=== PATIENT | male | born 1955 | race Caucasian/White ===

== ENCOUNTER 2016-04-07 09:24 | Inpatient (IN) | payer OTHER, MEDICARE ==
[~2016-04-07] VITALS: Ht 170.2 cm; Wt 86.4 kg
[~2016-04-07 09:24] MED LIST: AFLURIA 2045 MCG/0.1 IM; AMIODARONE HCL200 M1 PO; AMLODIPINE BESY10 M1 PO; AMLODIPINE BESY10 MG PO; APIX2.5 PO; ATORVASTATIN CA20 MG PO; CELLCEPT 250MG250 MG PO; CLONIDINE HCL0.2 MG PO; COUMADIN2.5 M1 PO; COZAAR 50MG TAB50 MG PO; DIGOXIN0.125 MG PO; DIGOXIN125 MCG PO; DILAUDID2 MG PO; ECOTRIN325 MG PO; FISH OIL1000 MG PO; FUROSEMIDE40 M1 PO; FUROSEMIDE40 MG PO; HUMALOG PEN100 U/ML SC; HYDROMORPHONE HC4 M1 PO; LANTUS SOL100 UNIT/1 SC; LANTUS100 UNIT/1 SC; LASIX20 M1 PO; LASIX20 MG PO; LASIX40 MG PO; LOPRESSOR100 M1 PO; LOPRESSOR50 MG PO; MASON NATURAL2000 IU PO; METOPROLOL TAR100 MG PO; MINITRAN1 EAC1 PAT; MULTAQ 400MG400 MG PO; MULTIPLE VITAMI1 TAB PO; NITROGLYCER0.6 MG/H1 TD; NORVASC 5MG TAB5 MG PO; NORVASC5 M1 PO; OXYCODONE5 M1 PO; PERCOCET 325 MG1 TA2 PO; PLAVIX75 M1 PO; PROGRAF 0.5MG0.5 MG PO; PROGRAF 1MG1 MG PO; PROGRAF0.5 MG PO; PROGRAF1 M1 PO; PROGRAF1 MG PO; REGLAN10 MG PO; ROBITUSSIN W/CO10 ML PO; SIMVASTATIN40 MG PO; VITAMIN D250000 UNIT PO; VITAMIN D50000 IU PO; WARFARIN SODIUM1 M1 PO; ZITHROMAX Z-PA250 M1 PO; ZOFRAN ODT4 MG PO; ZOFRAN4 M1 PO
--- NOTE | 2016-04-07 09:35 | NUR ---
PT STATES THAT HE FELL IN FEBR[facility]ARY AND WAS SEEN HERE, HAD MULTIPLE RIB FX ON RIGHT SIDE AND TRANSFERRED TO [facility] WHERE HE STAYED FOR SEVEN WEEKS, PT WAS DISCHARGED 2 WEEKS AGO, IS ON BLOOD THINNERS AND WOKE THIS AM WITH A LARGE HEMATOMA TO HIS L SIDE ABD, PT IS O2 DEPENDENT ON 1L VIA NC, O2 SAT 94 % , PT ALSO HAS LOOSE COUGH , STATES THAT HE HAS HAD IT FOR ABOUT 1 WEEK.
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
--- NOTE | 2016-04-07 10:00 | NUR ---
PORT CXR IN PROGRESS.
--- NOTE | 2016-04-07 10:05 | NUR ---
PT TO CAT SCAN
--- NOTE | 2016-04-07 10:14 | NUR ---
BACK FROM CAT SCAN
--- NOTE | 2016-04-07 10:35 | NUR ---
blood drawn and sent to lab 1blue,1sst,1pink, 1 grissom 1 lav
[2016-04-07 10:39] LABS: ABSOLUTE BASOPHIL COUNT 0 /CUMM (0.0-0.2); ABSOLUTE EOSINOPHIL COUNT 0.4 /CUMM (0.0-0.7); ABSOLUTE GRANULOCYTE CT 9.4 /CUMM (1.4-6.5); ABSOLUTE LYMPH COUNT 1.2 /CUMM (1.2-3.4); ABSOLUTE MONOCYTE COUNT 0.9 /CUMM (0.10-0.60); BASOPHIL % 0.4 % (0.0-2.0); EOSINOPHIL % 3.2 % (0-5); GRANULOCYTE % 78.9 % (42.2-75.2); HEMATOCRIT 36.8 % (42-52); MEAN CORPUSCULAR HGB 26.7 PG (27.0-31.0); MEAN CORPUSCULAR HGB CONC 32.5 G/DL (33.0-37.0); MEAN CORPUSCULAR VOLUME 82.1 FL (80.0-94.0); MEAN PLATELET VOLUME 9.6 FL (7.4-10.4); PLATELET COUNT 183 /CUMM (130-400); RED BLOOD CELL CT 4.48 /CUMM (4.70-6.10); WHITE BLOOD CELL COUNT 11.9 /CUMM (4.8-10.8)
--- NOTE | 2016-04-07 10:50 | NUR ---
IV EST. MEDICATED PER EMAR
--- NOTE | 2016-04-07 10:50 | RADIOLOGY REPORT ---
EXAMINATION: XR PORTABLE CHEST CLINICAL INFORMATION: Fall with severe hematoma left abdomen. COMPARISON: CT scan today. TECHNIQUE: Portable single view of the chest was obtained. FINDINGS: It is difficult to assess heart size, secondary to the portable nature of the film and poor inspiratory effort, but heart size probably normal in size. There is no evidence of CHF, although there is opacity seen at both lung bases. CT scan performed the same day shows no infiltrates, but just some lower lobe scarring or atelectasis. Surgical wires are noted overlying the lower neck, presumably related to the cervical spine. No pneumothorax is seen. IMPRESSION: No acute intrathoracic disease.
--- NOTE | 2016-04-07 11:05 | NUR ---
CRITICAL TEST RESULTS [id number] MORALES MAHONEY TESTS AND RESULTS: PT > 103, INR > 10, PTT > 120 Results received and read back by: DIRK LANGSTON Results received date and time: 04/07/16 1115 The following provider was notified of the results, and read the results back: MARKO YADAV Notified date and time: 04/07/16 at 1105
[2016-04-07 11:07] LABS: PT > 103.0 SEC (9.4-12.5); PTT > 120 SEC (25-37)
--- NOTE | 2016-04-07 11:16 | NUR ---
CRITICAL TEST RESULTS [id number] MORALES MAHONEY TESTS AND RESULTS: BUN 130, CR 5.5 Results received and read back by: DIRK LANGSTON Results received date and time: 04/07/16 1116 The following provider was notified of the results, and read the results back: MARKO YADAV Notified date and time: 04/07/16 at 1116
[2016-04-07] MEDS ORDERED: WARFARIN SODIUM5 M1 PO (11:19)
[2016-04-07] MEDS ORDERED: BUMETANIDE2 M1 PO (11:21)
--- NOTE | 2016-04-07 11:43 | NUR ---
AWAITING POC/DISPO Informed waiting has been performed.
--- NOTE | 2016-04-07 11:45 | CT SCAN REPORT ---
EXAMINATION: CT ABDOMEN AND PELVIS WITHOUT CONTRAST CLINICAL INFORMATION: Left abdomen hematoma COMPARISON: 12/12/2014 TECHNIQUE: Multidetector volumetric imaging was performed from the superior aspect of the liver through the pubic symphysis. Sagittal and coronal reformatted images were obtained on the technologist's workstation. DLP: 582.40 mGy-cm. FINDINGS: LUNG BASES: There are curvilinear bibasilar opacities favoring atelectasis. Coronary artery calcifications are present. LIVER, GALLBLADDER, AND BILIARY TREE: The liver is normal in size, shape, and attenuation. No focal hepatic lesion or biliary ductal dilatation is present. Patient is status post cholecystectomy. PANCREAS: Unremarkable. SPLEEN: Unremarkable. ADRENAL GLANDS: Stable nodularity of the right adrenal gland. The left adrenal gland is unremarkable. KIDNEYS AND URETERS: The [place] kidneys are atrophic without hydronephrosis. There is a redemonstrated right renal cyst, now measuring up to 2.0 cm in diameter. A left pelvic transplant kidney is present, without hydronephrosis. BLADDER: Minimally distended and suboptimally assessed. GASTROINTESTINAL TRACT: An ileocolonic anastomosis is noted in the right abdomen. No evidence of bowel obstruction. No abnormal bowel wall thickening is seen. There is trace sigmoid diverticulosis. No free fluid or free air is seen. ABDOMINAL WALL: There is hyperdense soft tissue attenuation in the subcutaneous tissues of the left anterior abdominal wall overlying the rectus abdominis muscle, suspicious for an abdominal wall hematoma as per clinical history. This measures up to approximately 2 cm in thickness. There is also mild asymmetric thickening of the underlying left rectus muscle as compared to the right, suspicious for a small component of intramuscular hematoma. A small amount of subcutaneous hematoma is seen extending across the midline into the anterior right abdomen overlying the right rectus muscle. LYMPH NODES: Normal. VASCULAR: There is atherosclerotic calcification along the aorta and iliac arteries. PELVIC VISCERA: Unremarkable. OSSEOUS STRUCTURES: Chronic appearing lower lateral right rib fractures are noted. Scattered degenerative changes are present in the spine, most severe at L3-L4. IMPRESSION: Subcutaneous swelling in the left anterior abdomen overlying the rectus abdominis muscle, consistent with abdominal wall hematoma as per clinical history. Mild underlying intramuscular hematoma in the left rectus muscle is also suspected. Mild subcutaneous hematoma is seen extending across the midline into the anterior right abdomen. No evidence of intra-abdominal hematoma.
--- NOTE | 2016-04-07 12:29 | NUR ---
MARKO YADAV IN TO REVIEW POC.
--- NOTE | 2016-04-07 12:51 | NUR ---
MEDICATED WITH VITAMIN K PER EMAR.
--- NOTE | 2016-04-07 12:59 | NUR ---
HOUSESTAFF AT BEDSIDE FOR EVAL.
--- NOTE | 2016-04-07 13:30 | NUR ---
1ST UNIT [facility]FP HANGING.
--- NOTE | 2016-04-07 14:40 | NUR ---
HOUSESTAFF AT BEDSIDE, ALERT ORIENTED.NO CO PAIN NO ACTIVE BLEEDING NOTED MACRINA UNIT OF [facility] WELL.
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
--- NOTE | 2016-04-07 15:23 | NUR ---
1ST UNIT FFP COMPLETED. AWAITS 2ND UNIT AND BED ASSIGNMENT. ALERT ORIENTED. VSS.
--- NOTE | 2016-04-07 15:36 | Admission Certification ---
Admission Certification Certification Statement - As attending physician, I certify that at the time of - admission, based on clinical presentation, severity of - symptoms, need for further diagnostic testing and - therapeutic interventions, and risk of adverse outcomes - without in-hospital treatment, in my clinical assessment, - this patient requires an acute hospital stay for a minimum - of two nights or longer. I have also considered psychsocial - factors such as support system, advanced age, financial - issues, cognitive issues, and failed out-patient treatments, - past re-admission history, safety of patient, and lack of - compliance as applicable. Specific rationale supporting this admission is: Severe coagulopathy and hematoma with acute on chronic CKD.
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
--- NOTE | 2016-04-07 18:35 | NUR ---
pt admitted to room 107
--- NOTE | 2016-04-07 19:41 | NUR ---
REPORT GIVEN TO [facility] ICU. TRANSPORT BOOKED.
[2016-04-07 20:00] VITALS: BP 150/60
[2016-04-08] VITALS: BP 116/54
--- NOTE | 2016-04-08 01:55 | NUR ---
0000 PATIENT RECEIVED DROWSY BUT AROUSABLE, DENIES NAUSEA, C/P, SKIN PINK, WARM AND DRY, HOME CPAP WITH 2L O2 BLEED IN USE- CONTINUOUS O2 SAT 96%, BREATHE SOUNDS CLEAR BUT DIMINISHED AT BASES, ABDOMEN SOFT, TENDER ON LUQ WHERE DEEPLY ECCYMOSIS IS, +BS, INSURANCE ADJUSTOR SINUS WITHOUT ECTOPY, HEART RATE 60'S TO 70'S/MIN, 6TH UNIT OF FFP INFUSING ORDERED, PATIENT RE-SETTLED FOR SLEEP, CALL LIGHT WITHIN REACH 0030 FFP TRANSFUSION COMPLETE- NO UNTOWARD S/S NOTED, BREATHE SOUNDS CLEAR BILATERALLY 0115 PATIENT AWAKE, C/O SUDDEN "SHARP" CP RADIATING ACROSS TOP OF CHEST, 11/23, O2 SAT DECREASED TO 86%- NC WITH 3L/MIN O2 PLACED- DR HOPKINS NOTIFIED, EKG DONE, LABS WITH TROPONIN DRAWN AND TO LAB (VS HR 80, BP 152/58, RR 24) [address] HOPKINS, C/P LASTED 5-10 MINUTES, NOW RESOLVED, RETURNED TO CPAP AND RE-SETTLED FOR SLEEP, O2 SAT AT 95%
[2016-04-08 01:58] LABS: ABSOLUTE BASOPHIL COUNT 0 /CUMM (0.0-0.2); ABSOLUTE EOSINOPHIL COUNT 0.3 /CUMM (0.0-0.7); ABSOLUTE GRANULOCYTE CT 6.3 /CUMM (1.4-6.5); ABSOLUTE LYMPH COUNT 1.4 /CUMM (1.2-3.4); ABSOLUTE MONOCYTE COUNT 0.8 /CUMM (0.10-0.60); BASOPHIL % 0.3 % (0.0-2.0); EOSINOPHIL % 3.7 % (0-5); GRANULOCYTE % 71.5 % (42.2-75.2); MEAN CORPUSCULAR HGB 27.2 PG (27.0-31.0); MEAN CORPUSCULAR HGB CONC 33.5 G/DL (33.0-37.0); MEAN CORPUSCULAR VOLUME 81.4 FL (80.0-94.0); MEAN PLATELET VOLUME 9.9 FL (7.4-10.4); PLATELET COUNT 146 /CUMM (130-400); RBC DISTRIBUTION WIDTH 15.1 % (11.5-14.5); RED BLOOD CELL CT 3.45 /CUMM (4.70-6.10); WHITE BLOOD CELL COUNT 8.8 /CUMM (4.8-10.8)
[2016-04-08 02:11] LABS: PT 22.1 SEC (9.4-12.5)
[2016-04-08 02:15] LABS: HEMATOCRIT 28.1 % (42-52)
[2016-04-08 04:00] VITALS: BP 136/60
--- NOTE | 2016-04-08 04:56 | NUR ---
0430 PATIENT SLEEPING SOUNDLY- O2 SAT DECREASED TO 88 TO 89%- O2 BLEED INCREASED TO 3L/MIN WITHOUT CHANGE- RT IN AND HAS INCREMENTALLY INCREASED O2 TO 5L/MIN TO OBTAIN O2 SAT OF 92%- BREATHE SOUNDS DIMINISHED ON LEFT COMPARED TO RIGHT SIDE AT THIS TIME- DR HUNT IN TO EXAMINE PATIENT- MD TO ORDER CXR
--- NOTE | 2016-04-08 06:01 | RADIOLOGY REPORT ---
EXAMINATION: XR PORTABLE CHEST CLINICAL INFORMATION: Evaluate for interval change with shortness of breath. COMPARISON: Chest x-ray 04/07/2016. TECHNIQUE: Portable view of the chest was obtained. FINDINGS: There is central vascular congestion with increased interstitial opacities suggesting mild interstitial pulmonary edema. No pleural effusions and no pneumothoraces. Cardiac silhouette is enlarged and unchanged. Surgical wires project over the neck in unchanged position. Osseous structures are stable. IMPRESSION: Central vascular congestion with findings suggesting new mild interstitial pulmonary edema.
--- NOTE | 2016-04-08 06:11 | NUR ---
O2 SAT INCREASED TO 98%- TITRATED BACK TO 2L/MIN WITH O2 SAT MAINTAINED AT 95%, CLOSE OBSERVATION MAINTAINED, AWAITING AM ROUNDS
[2016-04-08 08:00] VITALS: BP 128/60
--- NOTE | 2016-04-08 11:05 | PN- Nephrology ---
Assessment/Plan Assessment: 1. CKD stage V; status post LRD transplant 2000 2. Abdominal wall hematoma in setting of supratherapeutic INR now normalized following 6 units of FFP infusion 3. Chest pain of uncertain etiology 4. Pulmonary vascular congestion Suggestion: 1. Check troponins and manage pain as you are doing 2. No IV fluids 3. Restart Bumex 2 mg by mouth twice a day 4. Suspect the patient will need to start dialysis in the very near future, perhaps on this admission Subjective Subjective: Patient has been complaining of chest pain this morning with some mild shortness of breath. The pain is somewhat atypical in that it appears to be related to food or position. Renal function has improved slightly with a creatinine of 5.2 coming down from 5.5 after he received 6 units of fresh frozen plasma. INR has normalized. Objective Vital Signs and I&Os Vital Signs Date Time Temp Pulse Resp B/P Pulse O2 O2 Flow FiO2 Ox Delivery Rate 04/08 0554 71 94 04/08 0400 92 CPAP 2.0L 04/08 0400 98.4 74 20 136/60 92 CPAP 2.0L 04/08 0258 71 95 04/08 0033 70 95 04/08 0000 96 CPAP 2.0L 04/08 0000 97.9 70 18 116/54 96 CPAP 2.0L 04/07 2141 74 93 04/07 1999 93 Nasal 1.0L Cannula 04/07 1999 98.2 75 20 150/60 92 Nasal 1.0L Cannula 04/07 1905 98.1 71 19 162/69 92 Nasal 2.0L Cannula 04/07 1707 96.3 67 18 141/66 92 Nasal 2.0L Cannula 04/07 1345 98.6 63 20 129/59 92 Nasal 1.0L Cannula 04/07 1330 98.4 64 18 133/71 95 Nasal 1.0L Cannula 04/07 1200 92 Nasal 1.0L Cannula 04/07 1143 98.0 68 20 129/51 92 Nasal 1.0L Cannula Intake & Output 04/08 0400 04/07 1600 04/07 0400 04/06 0400 Intake Total 445 470 Output Total 300 420 Balance 145 50 Intake, Blood 295 Product Intake, IV 30 350 Intake, Oral 120 120 Number 0 Bowel Movements Output, Urine 300 420 Patient 190 lb 193 lb 186 lb Weight Physical Exam: General: Well-developed obese white male complaining on and off of chest pain Skin: No rash or jaundice HEENT: Prosthetic left eye, no icterus Neck: Without masses or thyromegaly, no supraclavicular or cervical adenopathy Chest: Rales and decreased breath sounds at right base, left lung clear Heart: Regular rate and rhythm without S3 or rub Abdomen: Soft with large ecchymosis in the left upper quadrant region overlying subcutaneous induration/mass which is still very tender Extremities: Without cyanosis or edema Neuro: No focal findings, no asterixis or myoclonus Current Medications: Current Medications Sig/Harjinder Start time Last Medication Dose Route Stop Time Status Admin Acetaminophen 650 MG Q6P PRN 04/07 2044 AC PO Acetaminophen 1,000 MG Q6P PRN 04/07 2044 AC IV Amiodarone HCl 100 MG DAILY 04/08 1000 AC 04/08 PO 0940 Amlodipine Besylate 10 MG DAILY 04/08 1000 AC 04/08 PO 0940 Atorvastatin Calcium 20 MG 1700 04/07 1700 AC PO Fish Oil 1,050 MG DAILY 04/08 1000 AC 04/08 PO 0940 Hydromorphone HCl 4 MG Q8P PRN 04/07 1615 AC PO Hydromorphone HCl 1 MG ONCE ONE 04/07 1345 DC 04/07 IV 04/07 1346 1330 Hydromorphone HCl 0 .STK-MED ONE 04/07 1335 DC .ROUTE Insulin Detemir 16 UNITS QPM 04/07 2200 AC 04/07 SC 2222 Metoprolol Succinate 100 MG DAILY 04/08 1000 AC 04/08 PO 0940 Morphine Sulfate 4 MG ONCE ONE 04/08 1045 DC 04/08 IV 04/08 1046 1052 Multivitamins 1 TAB DAILY 04/08 1000 AC 04/08 PO 0940 Mycophenolate Mofetil 750 MG 0700,1900 04/07 1900 AC 04/08 PO 0621 Nitroglycerin 0.5 GM ONCE ONE 04/08 1030 CAN TOP 04/08 1031 Nitroglycerin 0.6 MG DAILY 04/08 1000 AC 04/08 TOP 0940 Non-Formulary 0 SEE ADMIN CRITERIA 04/07 1630 CAN Medication ANY Non-Formulary 0 SEE ADMIN CRITERIA 04/07 1630 CAN Medication ANY Ondansetron HCl 4 MG Q6P PRN 04/07 2014 AC 04/07 IV 2037 Phytonadione 10 MG ONCE ONE 04/07 1245 DC 04/07 SC 04/07 1246 1251 Phytonadione 0 .STK-MED ONE 04/07 1241 DC .ROUTE Promethazine HCl 25 MG ONCE ONE 04/07 2300 DC 04/07 IV 04/07 2300 230 Sodium Chloride 1,000 ML Q8H 04/07 1500 DC IV Tacrolimus 1.5 MG DAILY 04/08 1000 AC 04/08 PO 0940 Tacrolimus 1 MG AT BEDTIME 04/07 2200 AC 04/07 PO 2221 Trimethobenzamide HCl 200 MG ONCE ONE 04/07 2129 DC IM 04/07 2130 Results Pertinent Lab Results: Laboratory Tests 04/08 04/08 04/08 1000 0500 0120 Chemistry Sodium (137 - 145 mmol/L) Pending Cancelled 144 Potassium (3.5 - 5.1 mmol/L) Pending Cancelled 4.1 Chloride (98 - 107 mmol/L) Pending Cancelled 107 Carbon Dioxide (22 - 30 mmol/L) Pending Cancelled 19 L Anion Gap (5 - 16) Pending Cancelled 17 H BUN (9 - 20 mg/dL) Pending Cancelled 128 *H Creatinine (0.7 - 1.2 mg/dL) Pending Cancelled 5.2 *H Estimated GFR (>60 ml/min) 11 L BUN/Creatinine Ratio Pending Glucose (65 - 99 mg/dL) Cancelled 143 H Calcium (8.4 - 10.2 mg/dL) Cancelled 10.4 H Phosphorus (2.5 - 4.5 mg/dL) Cancelled 7.2 H Magnesium (1.6 - 2.3 mg/dL) Cancelled 2.3 Total Bilirubin (0.2 - 1.3 mg/dL) Cancelled 0.6 AST (17 - 59 U/L) Cancelled 22 ALT (21 - 72 U/L) Cancelled 41 Troponin I (<0.11 ng/ml) Pending 0.04 Albumin (3.5 - 5.0 g/dL) Cancelled 4.4 Coagulation PT (9.4 - 12.5 SEC) 22.1 H INR (0.90 - 1.17) 2.12 H Hematology CBC w Diff Pending Cancelled NO MAN DIFF REQ WBC (4.8 - 10.8 /CUMM) Pending Cancelled 8.8 RBC (4.70 - 6.10 /CUMM) Pending Cancelled 3.45 L Hgb (14.0 - 18.0 G/DL) Pending Cancelled 9.4 L Hct (42 - 52 %) Pending Cancelled 28.1 L MCV (80.0 - 94.0 FL) Pending Cancelled 81.4 MCH (27.0 - 31.0 PG) Pending Cancelled 27.2 RDW (11.5 - 14.5 %) Pending Cancelled 15.1 H Plt Count (130 - 400 /CUMM) Pending Cancelled 146 MPV (7.4 - 10.4 FL) Pending Cancelled 9.9 Gran % (42.2 - 75.2 %) 71.5 Lymphocytes % (20.5 - 51.1 %) 15.6 L Monocytes % (1.7 - 9.3 %) 8.9 Eosinophils % (0 - 5 %) 3.7 Basophils % (0.0 - 2.0 %) 0.3 Absolute Granulocytes (1.4 - 6.5 /CUMM) 6.3 Absolute Lymphocytes (1.2 - 3.4 /CUMM) 1.4 Absolute Monocytes (0.10 - 0.60 /CUMM) 0.8 H Absolute Eosinophils (0.0 - 0.7 /CUMM) 0.3 Absolute Basophils (0.0 - 0.2 /CUMM) 0 PUBS MCHC (33.0 - 37.0 G/DL) Pending Cancelled 33.5 04/07 04/07 2300 2127 Chemistry Troponin I Cancelled Urines Urinalysis LIGHT H Urine Color (YEL,AMB,STR) YEL Urine Clarity (CLEAR) CLEAR Urine pH (5.0 - 8.0) 5.5 Ur Specific [place] (1.001 - 1.035) 1.020 Urine Protein (NEG,<30 MG/DL) TRACE H Urine Ketones (NEG) NEG Urine Nitrite (NEG) NEG Urine Bilirubin (NEG) NEG Urine Urobilinogen (0.1 - 1.0 EU/dl) 0.2 Ur Leukocyte Esterase (NEG) NEG Ur Microscopic SEDIMENT EXAMINED Urine RBC (0 - 5 /HPF) 1-3 Ur Epithelial Cells (NONE,FEW) RARE Urine Crystals RARE CA OX Urine Hemoglobin (NEG) TRACE-LYSED H Urine Glucose (N MG/DL) NEG 04/07 1030 Chemistry Sodium (137 - 145 mmol/L) Cancelled 144 Potassium (3.5 - 5.1 mmol/L) Cancelled 4.6 Chloride (98 - 107 mmol/L) Cancelled 107 Carbon Dioxide (22 - 30 mmol/L) Cancelled 18 L Anion Gap (5 - 16) Cancelled 19 H BUN (9 - 20 mg/dL) Cancelled 130 *H Creatinine (0.7 - 1.2 mg/dL) Cancelled 5.5 *H Estimated GFR (>60 ml/min) 11 L BUN/Creatinine Ratio (7 - 25 %) Cancelled 23.6 Glucose (65 - 99 mg/dL) 135 H Calcium (8.4 - 10.2 mg/dL) 10.4 H Total Bilirubin (0.2 - 1.3 mg/dL) 0.5 AST (17 - 59 U/L) 35 ALT (21 - 72 U/L) 41 Alkaline Phosphatase (< 127 U/L) 157 H Creatine Kinase (55 - 170 U/L) 25 L Troponin I (<0.11 ng/ml) 0.03 Total Protein (6.3 - 8.2 g/dL) 8.2 Albumin (3.5 - 5.0 g/dL) 4.1 Globulin (1.9 - 4.2 gm/dL) 4.1 Albumin/Globulin Ratio (1.1 - 2.2 %) 1.0 L Amylase (30 - 110 U/L) 37 Lipase (23 - 300 U/L) 33 Coagulation PT (9.4 - 12.5 SEC) Cancelled > 103.0 *H INR (0.90 - 1.17) Cancelled > 10.0 *H APTT (25 - 37 SEC) > 120 *H Hematology CBC w Diff Cancelled NO MAN DIFF REQ WBC (4.8 - 10.8 /CUMM) Cancelled 11.9 H RBC (4.70 - 6.10 /CUMM) Cancelled 4.48 L Hgb (14.0 - 18.0 G/DL) Cancelled 11.9 L Hct (42 - 52 %) Cancelled 36.8 L MCV (80.0 - 94.0 FL) Cancelled 82.1 MCH (27.0 - 31.0 PG) Cancelled 26.7 L RDW (11.5 - 14.5 %) Cancelled 15.0 H Plt Count (130 - 400 /CUMM) Cancelled 183 MPV (7.4 - 10.4 FL) Cancelled 9.6 Gran % (42.2 - 75.2 %) 78.9 H Lymphocytes % (20.5 - 51.1 %) 10.0 L Monocytes % (1.7 - 9.3 %) 7.5 Eosinophils % (0 - 5 %) 3.2 Basophils % (0.0 - 2.0 %) 0.4 Absolute Granulocytes (1.4 - 6.5 /CUMM) 9.4 H Absolute Lymphocytes (1.2 - 3.4 /CUMM) 1.2 Absolute Monocytes (0.10 - 0.60 /CUMM) 0.9 H Absolute Eosinophils (0.0 - 0.7 /CUMM) 0.4 Absolute Basophils (0.0 - 0.2 /CUMM) 0 PUBS MCHC (33.0 - 37.0 G/DL) Cancelled 32.5 L Imaging/Other Studies: PATIENT: MORALES MAHONEY PRESENT AGE: 61 PATIENT ACCOUNT NO: [id number] : 55 LOCATION: [facility] ORDERING PHYSICIAN: AN HOPKINS MD SERVICE DATE: 04/08/16 EXAM TYPE: RAD - XRY-PORTABLE CHEST XRAY EXAMINATION: XR PORTABLE CHEST CLINICAL INFORMATION: Evaluate for interval change with shortness of breath. COMPARISON: Chest x-ray 04/07/2016. TECHNIQUE: Portable view of the chest was obtained. FINDINGS: There is central vascular congestion with increased interstitial opacities suggesting mild interstitial pulmonary edema. No pleural effusions and no pneumothoraces. Cardiac silhouette is enlarged and unchanged. Surgical wires project over the neck in unchanged position. Osseous structures are stable. IMPRESSION: Central vascular congestion with findings suggesting new mild interstitial pulmonary edema. DICTATED BY: NICOLA MENDOZA MD DATE/TIME DICTATED:04/08/16554 HAM SMOKER:ASHLEY DATE/TIME TRANSCRIBED:04/08/16554 CONFIDENTIAL, DO NOT COPY WITHOUT APPROPRIATE AUTHORIZATION. <Electronically signed in Other Vendor System> SIGNED BY: NICOLA MENDOZA MD 04/08/16 0601
[2016-04-08 11:08] LABS: ABSOLUTE BASOPHIL COUNT 0 /CUMM (0.0-0.2); ABSOLUTE EOSINOPHIL COUNT 0.3 /CUMM (0.0-0.7); ABSOLUTE GRANULOCYTE CT 5.1 /CUMM (1.4-6.5); ABSOLUTE LYMPH COUNT 0.9 /CUMM (1.2-3.4); ABSOLUTE MONOCYTE COUNT 0.7 /CUMM (0.10-0.60); BASOPHIL % 0.3 % (0.0-2.0); EOSINOPHIL % 4.8 % (0-5); GRANULOCYTE % 71.8 % (42.2-75.2); HEMATOCRIT 26.6 % (42-52); MEAN CORPUSCULAR HGB 26.7 PG (27.0-31.0); MEAN CORPUSCULAR HGB CONC 32.7 G/DL (33.0-37.0); MEAN CORPUSCULAR VOLUME 81.6 FL (80.0-94.0); MEAN PLATELET VOLUME 9.3 FL (7.4-10.4); PLATELET COUNT 141 /CUMM (130-400); RBC DISTRIBUTION WIDTH 15.1 % (11.5-14.5); RED BLOOD CELL CT 3.26 /CUMM (4.70-6.10); WHITE BLOOD CELL COUNT 7.1 /CUMM (4.8-10.8)
--- NOTE | 2016-04-08 12:15 | PN- Housestaff ---
See Addendum Subjective Follow-up For: 1-Supratherapeutic INR with spontaneous abdominal hematoma 2-ULISES on top of CKD Subjective: She was seen and examined, he is laying in bed looks relaxed and comfortable. Patient complained of chest pain last night. He denies any current chest pain, shortness breath, palpitations or diaphoresis. Patient reported that he gets this kind of pain intermittently after food Review of Systems Constitutional: Denies: chills, diaphoresis, fever. EENTM: Denies: visual changes, hearing changes. Cardiovascular: Denies: chest pain, orthopena, palpitations, syncope. Respiratory: Reports: cough, short of breath. Gastrointestinal: Denies: abdominal pain, diarrhea, distention, nausea, vomiting. Genitourinary: Denies: dysuria. Objective Last 24 Hrs of Vital Signs/I&O Vital Signs Date Time Temp Pulse Resp B/P Pulse O2 O2 Flow FiO2 Ox Delivery Rate 04/08 08 Nasal 4.0L Cannula 04/08 08 98.5 72 19 128/60 99 CPAP 2.0L 04/08 0554 71 94 04/08 0400 92 CPAP 2.0L 04/08 0400 98.4 74 20 136/60 92 CPAP 2.0L 04/08 0258 71 95 04/08 0033 70 95 04/08 0000 96 CPAP 2.0L 04/08 0000 97.9 70 18 116/54 96 CPAP 2.0L 04/07 2141 74 93 04/07 1999 93 Nasal 1.0L Cannula 04/07 1999 98.2 75 20 150/60 92 Nasal 1.0L Cannula 04/07 1905 98.1 71 19 162/69 92 Nasal 2.0L Cannula 04/07 1707 96.3 67 18 141/66 92 Nasal 2.0L Cannula 04/07 1345 98.6 63 20 129/59 92 Nasal 1.0L Cannula 04/07 1330 98.4 64 18 133/71 95 Nasal 1.0L Cannula Intake & Output 04/08 1600 04/08 0800 04/08 0000 Intake Total 445 470 Output Total 300 420 Balance 145 50 Intake, Blood 295 Product Intake, IV 30 350 Intake, Oral 120 120 Number 0 Bowel Movements Output, Urine 300 420 Patient 86.381 kg 87.713 kg Weight Physical Exam General Appearance: Alert, Oriented X3, Cooperative, No Acute Distress Skin: hematoma looks less tens and less swollen than yesterday. HEENT: Atraumatic, PERRLA, EOMI, Mucous Membr. moist/pink, blind on left eye Neck: No JVD Cardiovascular: Regular Rate, Normal S1, Normal S2 Lungs: dcrease air-entry over lungs B/L with some rhonchi Abdomen: Soft, No Tenderness, hematoma over the left side of abdomine Neurological: Normal Speech Current Medications: Current Medications Sig/Harjinder Start time Last Medication Dose Route Stop Time Status Admin Acetaminophen 650 MG Q6P PRN 04/07 2044 AC PO Acetaminophen 1,000 MG Q6P PRN 04/07 204 AC IV Amiodarone HCl 100 MG DAILY 04/08 1000 AC 04/08 PO 0940 Amlodipine Besylate 10 MG DAILY 04/08 1000 AC 04/08 PO 0940 Atorvastatin Calcium 20 MG 1700 04/07 1700 AC PO Bumetanide 2 MG BID 04/08 1132 AC PO Docusate Sodium 100 MG BID PRN 04/08 1200 AC PO Fish Oil 1,050 MG DAILY 04/08 1000 AC 04/08 PO 0940 Hydromorphone HCl 4 MG Q8P PRN 04/07 1615 AC 04/08 PO 1100 Hydromorphone HCl 1 MG ONCE ONE 04/07 1345 DC 04/07 IV 04/07 1346 1330 Hydromorphone HCl 0 .STK-MED ONE 04/07 1335 DC .ROUTE Insulin Detemir 16 UNITS QPM 04/07 2200 AC 04/07 SC 2222 Metoprolol Succinate 100 MG DAILY 04/08 1000 AC 04/08 PO 0940 Morphine Sulfate 4 MG ONCE ONE 04/08 1045 DC 04/08 IV 04/08 1046 1052 Multivitamins 1 TAB DAILY 04/08 1000 AC 04/08 PO 0940 Mycophenolate Mofetil 750 MG 0700,1900 04/07 1900 AC 04/08 PO 0621 Nitroglycerin 0.5 GM ONCE ONE 04/08 1030 CAN TOP 04/08 1031 Nitroglycerin 0.6 MG DAILY 04/08 1000 AC 04/08 TOP 0940 Non-Formulary 0 SEE ADMIN CRITERIA 04/07 1630 CAN Medication ANY Non-Formulary 0 SEE ADMIN CRITERIA 04/07 1630 CAN Medication ANY Omeprazole 40 MG DAILY AC 04/08 1148 AC PO Ondansetron HCl 4 MG Q6P PRN 04/07 2014 AC 04/07 IV 2038 Phytonadione 10 MG ONCE ONE 04/07 1245 DC 04/07 SC 04/07 1246 1251 Phytonadione 0 .STK-MED ONE 04/07 1241 DC .ROUTE Promethazine HCl 25 MG ONCE ONE 04/07 2300 DC 04/07 IV 04/07 230 2301 Sodium Chloride 1,000 ML Q8H 04/07 1500 DC IV Tacrolimus 1.5 MG DAILY 04/08 1000 AC 04/08 PO 0940 Tacrolimus 1 MG AT BEDTIME 04/07 2200 AC 04/07 PO 2221 Trimethobenzamide HCl 200 MG ONCE ONE 04/07 2129 DC IM 04/07 2130 Last 24 Hrs of Lab/Gael Results Last 24 Hrs of Labs/Mics: Laboratory Tests 04/08/16 1000: Sodium Pending, Potassium Pending, Chloride Pending, Carbon Dioxide Pending, Anion Gap Pending, BUN Pending, Creatinine Pending, BUN/Creatinine Ratio Pending , Troponin I Pending, CBC w Diff NO MAN DIFF REQ, RBC 3.26 L, MCV 81.6, MCH 26.7 L, RDW 15.1 H, MPV 9.3, Gran % 71.8, Lymphocytes % 13.3 L, Monocytes % 9.8 H, Eosinophils % 4.8, Basophils % 0.3, Absolute Granulocytes 5.1, Absolute Lymphocytes 0.9 L, Absolute Monocytes 0.7 H, Absolute Eosinophils 0.3, Absolute Basophils 0, PUBS MCHC 32.7 L 04/08/16 0500: Sodium Cancelled, Potassium Cancelled, Chloride Cancelled, Carbon Dioxide Cancelled, Anion Gap Cancelled, BUN Cancelled, Creatinine Cancelled, Glucose Cancelled, Calcium Cancelled, Phosphorus Cancelled, Magnesium Cancelled, Total Bilirubin Cancelled, AST Cancelled, ALT Cancelled, Albumin Cancelled, CBC w Diff Cancelled, WBC Cancelled, RBC Cancelled, Hgb Cancelled, Hct Cancelled, MCV Cancelled, MCH Cancelled, RDW Cancelled, Plt Count Cancelled, MPV Cancelled, PUBS MCHC Cancelled 04/08/16 0120: Anion Gap 17 H, Estimated GFR 11 L, Glucose 143 H, Calcium 10.4 H, Phosphorus 7.2 H, Magnesium 2.3, Total Bilirubin 0.6, AST 22, ALT 41, Troponin I 0.04, Albumin 4.4, PT 22.1 H, INR 2.12 H, CBC w Diff NO MAN DIFF REQ, RBC 3.45 L, MCV 81.4, MCH 27.2, RDW 15.1 H, MPV 9.9, Gran % 71.5, Lymphocytes % 15.6 L, Monocytes % 8.9, Eosinophils % 3.7, Basophils % 0.3, Absolute Granulocytes 6.3, Absolute Lymphocytes 1.4, Absolute Monocytes 0.8 H, Absolute Eosinophils 0.3, Absolute Basophils 0, PUBS MCHC 33.5 04/07/16 2300: Urinalysis LIGHT H, Urine Color YEL, Urine Clarity CLEAR, Urine pH 5.5, Ur Specific [place] 1.020, Urine Protein TRACE H, Urine Ketones NEG, Urine Nitrite NEG, Urine Bilirubin NEG, Urine Urobilinogen 0.2, Ur Leukocyte Esterase NEG, Ur Microscopic SEDIMENT EXAMINED, Urine RBC 1-3, Ur Epithelial Cells RARE, Urine Crystals RARE [place], Urine Hemoglobin TRACE-LYSED H, Urine Glucose NEG 04/07/167: Troponin I Cancelled 04/07/16 2000: Sodium Cancelled, Potassium Cancelled, Chloride Cancelled, Carbon Dioxide Cancelled, Anion Gap Cancelled, BUN Cancelled, Creatinine Cancelled, BUN/ Creatinine Ratio Cancelled, PT Cancelled, INR Cancelled, CBC w Diff Cancelled, WBC Cancelled, RBC Cancelled, Hgb Cancelled, Hct Cancelled, MCV Cancelled, MCH Cancelled, RDW Cancelled, Plt Count Cancelled, MPV Cancelled, PUBS MCHC Cancelled Microbiology 04/07 2019 UPPER RESP: Surveillance Culture - RECD 04/07 2019 GI: Surveillance Culture - RECD Assessment/Plan Assessment: # spontaneous (no trauma) left side abdominal Wall hematoma. Pt was found to have supratherapeutic INR on admission (>10). His H&H is stable is stable for now. INR was reversed by vitamin K and 6 units of FFP. His INR after FFP is 2.12. * We will repeat his labs later today * if needed may by blood transfuse. * We will follow vascular surgery recommendation regarding the hematoma #Acute on chronic kidney failure pt had a history of LRDT he is on tacrolimus and mycophenylate, this may increase his risk of infection. specially that now he has a large abdominal hematoma. Patient was seen by nephrology today * We will Restart Bumex 2 mg by mouth twice a day, as per nephrology * monitor ins/outs * continue his immunosuppressants medications * We, will considerbroad spectrum Abx as his hematoma is a nidus for infection * We will repeat RFT daily * Patient most likely will be planned for dialysis as per nephrology * We will follow any nephrology recommendation #Paroxysmal A.fib Pt now is NSR. He presented with supratherapeutic INR(>10). * we will continue his amiodarone * we will continue his toprol XL 100mg daily for now. * Dr. Dunlap has already been consulted we will follow his recommendation #Chest pain He shouldn't complaining of chest pain yesterday, he also complained of chest pain today. Even though the patient reported recurrent similar pain after food. * We will order EKG * We will order troponin * X-ray was done this morning and show mild vascular congestion * Cardiology is on board #HTN/DM * continue home meds but we will use a novolog sliding scale and give levemir instead of glargine nightly * FSG TIDAC/HS FULL CODE ALPS for dvt ppx CC3 diet Problem List: 1. Hematoma 2. Supratherapeutic INR Pain Ratin Pain Location: chest Pain Goal: Remain pain free Pain Plan: Nitroglycerin patch Tomorrow's Labs & Rationales: cbc and BEP
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
[2016-04-08 16:00] VITALS: BP 120/64
--- NOTE | 2016-04-08 17:58 | ECHOCARDIOGRAM REPORT ---
MORALES MAHONEY Age: 61 : 1955 Gender: M Exam Date: 04/08/2016 16:25 Exam Location: [facility] Ht (in): 67 Wt (lb): 190 BSA: 2.04 BP: 128 / 60 Ordering Physician: RADHA MITCHELL MD Referring Physician: Alan Dunlap MD, PhD Technologist: Yaquelin Gunn [facility] Room Number: 109 Indications: HEART FAILURE Rhythm: Sinus Technical Quality: Technically difficult study FINDINGS Left Ventricle Normal size left ventricle. Borderline concentric left ventricular hypertrophy. No obvious regional wall motion abnormalities. Normal left ventricular ejection fraction visually estimated at 60%. "pseudonormal" filling pattern of the left ventricle for age (stage 2 diastolic dysfunction). Right Ventricle Normal right ventricular size and function. Right Atrium Normal right atrial size. Left Atrium Left atrial size at the upper limits of normal. Mitral Valve Moderate mitral annular calcification. Mitral valve mildly thickened. Mild mitral regurgitation. Aortic Valve Trileaflet aortic valve. Mild aortic sclerosis. No aortic valve stenosis. Trace aortic regurgitation. Tricuspid Valve Structurally normal tricuspid valve. Trace tricuspid regurgitation. No evidence of pulmonary hypertension. Right ventricular systolic pressure estimated to be within the normal range at 12 mmHg. Pulmonic Valve Pulmonic valve not well visualized, grossly normal. No pulmonic regurgitation. Pericardium No pericardial effusion. Great Vessels Normal size aortic root. Mildly dilated ascending aorta. Dilated inferior vena cava. CONCLUSIONS Normal size left ventricle. Borderline concentric left ventricular hypertrophy. Normal left ventricular ejection fraction visually estimated at 60%. "pseudonormal" filling pattern of the left ventricle for age (stage 2 diastolic dysfunction). Normal right ventricular size and function. Normal right atrial size. Left atrial size at the upper limits of normal. Mild mitral regurgitation. Trace aortic regurgitation. Trace tricuspid regurgitation. No evidence of pulmonary hypertension. Mildly dilated ascending aorta. Dilated inferior vena cava. Jose Lunsford M.D. (Electronically Signed) Final Date: 08 April 2016 17:58 MEASUREMENTS (Male / Female) Normal Values 2D ECHO LV Diastolic Diameter PLAX 4.9 cm 4.2 - 5.9 / 3.9 - 5.3 cm LV Systolic Diameter PLAX 3.3 cm 2.1 - 4.0 cm LV Fractional Shortening PLAX 32.7 % 25 - 46 % LV Ejection Fraction 2D Teich 60.9 % IVS Diastolic Thickness 1.1 cm LVPW Diastolic Thickness 1.1 cm LV Relative Wall Thickness 0.4 RV Internal Dim ED PLAX 3.0 cm 1.9 - 3.8 cm LVOT Diameter 2.3 cm Aortic Root Diameter 3.3 cm LA Systolic Diameter LX 4.0 cm 3.0 - 4.0 / 2.7 - 3.8 cm LA Volume 53.0 cm 18 - 58 / 22 - 52 cm Ascending Aorta Diameter 3.6 cm DOPPLER AV Peak Velocity 144.0 cm/s AV Peak Gradient 8.3 mmHg AV Mean Velocity 102.0 cm/s AV Mean Gradient 5.0 mmHg AV Velocity Time Integral 33.1 cm LVOT Peak Velocity 119.0 cm/s LVOT Peak Gradient 5.7 mmHg LVOT Mean Velocity 85.0 cm/s LVOT Mean Gradient 3.0 mmHg LVOT Velocity Time Integral 26.5 cm LVOT Stroke Volume 110.1 cm AV Area Cont Eq vti 3.3 cm AV Area Cont Eq pk 3.4 cm MV Peak Velocity 120.0 cm/s MV Peak Gradient 5.8 mmHg MV Mean Velocity 71.1 cm/s MV Mean Gradient 2.0 mmHg Mitral E Point Velocity 125.0 cm/s Mitral A Point Velocity 83.9 cm/s Mitral E to A Ratio 1.5 MV PHT Velocity 125.0 cm/s MV Deceleration Smyth 537.0 cm/s MV Pressure Half Time 69.8 ms MV Area PHT 3.2 cm MV Deceleration Time 132.0 ms TR Peak Velocity 135.0 cm/s TR Peak Gradient 7.3 mmHg Right Atrial Pressure 5.0 mmHg Pulmonary Artery Systolic Pressu 12.3 mmHg Right Ventricular Systolic Press 12.3 mmHg PV Peak Velocity 119.0 cm/s PV Peak Gradient 5.7 mmHg PV Mean Velocity 76.9 cm/s PV Mean Gradient 3.0 mmHg PV Velocity Time Integral 23.1 cm LV E' Lateral Velocity 8.8 cm/s Mitral E to LV E' Lateral Ratio 14.3 LV E' Septal Velocity 6.7 cm/s Mitral E to LV E' Septal Ratio 18.7
[2016-04-08 20:00] VITALS: BP 126/58
[2016-04-09] VITALS: BP 120/56
[2016-04-09 04:00] VITALS: BP 116/52
[2016-04-09 06:17] LABS: ABSOLUTE BASOPHIL COUNT 0 /CUMM (0.0-0.2); ABSOLUTE EOSINOPHIL COUNT 0.4 /CUMM (0.0-0.7); ABSOLUTE GRANULOCYTE CT 3.5 /CUMM (1.4-6.5); ABSOLUTE LYMPH COUNT 1.1 /CUMM (1.2-3.4); ABSOLUTE MONOCYTE COUNT 0.7 /CUMM (0.10-0.60); BASOPHIL % 0.6 % (0.0-2.0); EOSINOPHIL % 6.3 % (0-5); GRANULOCYTE % 61.4 % (42.2-75.2); HEMATOCRIT 24.7 % (42-52); MEAN CORPUSCULAR HGB CONC 32.9 G/DL (33.0-37.0); MEAN CORPUSCULAR VOLUME 82.1 FL (80.0-94.0); MEAN PLATELET VOLUME 9.8 FL (7.4-10.4); PLATELET COUNT 141 /CUMM (130-400); RBC DISTRIBUTION WIDTH 15.3 % (11.5-14.5); RED BLOOD CELL CT 3.01 /CUMM (4.70-6.10); WHITE BLOOD CELL COUNT 5.7 /CUMM (4.8-10.8)
[2016-04-09 06:18] LABS: PT 22.6 SEC (9.4-12.5)
--- NOTE | 2016-04-09 07:47 | PN- Housestaff ---
Subjective Follow-up For: 1-Supratherapeutic INR with spontaneous abdominal hematoma 2-ULISES on top of CKD Subjective: patient was seen and examined. His laying on bed looks relaxed and comfortable. No acute overnight events were reported by the patient or his nurse. He shouldn't denies any current complaints. He shouldn't denies chest pain, palpitation, shortness breath, or abdominal pain. Review of Systems Constitutional: Denies: chills, fever, weakness. Cardiovascular: Denies: chest pain, palpitations, peripheral edema, syncope. Respiratory: Reports: cough. Denies: orthopnea, short of breath, sputum production. Gastrointestinal: Denies: abdominal pain, constipation, diarrhea, nausea, vomiting. Genitourinary: Denies: dysuria. Objective Last 24 Hrs of Vital Signs/I&O Vital Signs Date Time Temp Pulse Resp B/P Pulse O2 O2 Flow FiO2 Ox Delivery Rate 04/09 1402 96.9 63 20 100/50 93 Nasal 5.0L Cannula 04/09 0800 95 Nasal 5.0L Cannula 04/09 0800 97.4 60 20 111/50 95 Nasal 5.0L Cannula 04/09 0526 56 91 04/09 0400 96 CPAP 7.0L 04/09 0400 98.1 58 18 116/52 96 CPAP 7.0L 04/09 0332 59 95 04/09 0019 65 90 04/09 0000 92 CPAP 7.0L 04/09 0000 97.6 66 18 120/56 92 CPAP 7.0L 04/08 2355 67 86 04/08 2227 68 95 04/08 2103 71 116/49 04/08 1999 93 Nasal 4.0L Cannula 04/08 1999 97.1 80 28 126/58 93 Nasal 4.0L Cannula 04/08 1600 93 Nasal 4.0L Cannula 04/08 1600 98.4 80 20 120/64 93 Nasal 4.0L Cannula Intake & Output 04/09 1600 04/09 0800 04/09 0000 Intake Total 800 120 200 Output Total 250 0 200 Balance 550 120 0 Intake, Oral 800 120 200 Number 0 Bowel Movements Output, Urine 250 0 200 Physical Exam General Appearance: Alert, Oriented X3, Cooperative, No Acute Distress Skin: left upper quadrant abdominal hematoma HEENT: Atraumatic, PERRLA, EOMI, blind on left eye Neck: No JVD Cardiovascular: Regular Rate, Normal S1, Normal S2, No Murmurs Lungs: reason air entry over both lungs, Abdomen: Soft, tenderness over left side abdominal hematoma Neurological: Normal Speech Current Medications: Current Medications Sig/Harjinder Start time Last Medication Dose Route Stop Time Status Admin Acetaminophen 650 MG Q6P PRN 04/07 2044 AC PO Acetaminophen 1,000 MG Q6P PRN 04/07 2044 AC IV Amiodarone HCl 100 MG DAILY 04/08 1000 AC 04/09 PO 0947 Amlodipine Besylate 10 MG DAILY 04/08 1000 AC 04/09 PO 0948 Atorvastatin Calcium 20 MG 1700 04/07 1700 AC 04/08 PO 1708 Bumetanide 2 MG BID 04/08 1132 AC 04/09 PO 0946 Dextrose 25 GM ONCE ONE 04/09 0745 DC 04/09 IV 04/09 0746 0744 Docusate Sodium 100 MG BID PRN 04/08 1200 AC 04/08 PO 1244 Fish Oil 1,050 MG DAILY 04/08 1000 AC 04/09 PO 0945 Hydromorphone HCl 4 MG Q8P PRN 04/07 1615 AC 04/09 PO 0945 Insulin Aspart 0 TIDAC 04/09 1700 AC SC Insulin Detemir 16 UNITS QPM 04/07 2200 AC 04/08 SC 2102 Metoprolol Succinate 100 MG DAILY 04/08 1000 DC 04/08 PO 0940 Metoprolol Tartrate 100 MG BID 04/08 2200 AC 04/09 PO 0948 Multivitamins 1 TAB DAILY 04/08 1000 AC 04/09 PO 0948 Mycophenolate Mofetil 750 MG 0700,1900 04/07 1900 AC 04/09 PO 0719 Nitroglycerin 0.6 MG DAILY 04/08 1000 AC 04/09 TOP 0946 Omeprazole 40 MG DAILY AC 04/08 1148 AC 04/09 PO 0718 Ondansetron HCl 4 MG Q6P PRN 04/07 2015 AC 04/07 IV 2038 Polyethylene Glycol 17 GM DAILY 04/08 1317 AC 04/09 PO 0946 Senna 187 MG AT BEDTIME 04/08 2200 AC 04/08 PO 2103 Tacrolimus 1.5 MG DAILY 04/08 1000 AC 04/09 PO 0946 Tacrolimus 1 MG AT BEDTIME 04/07 2200 AC 04/08 PO 2104 Warfarin Sodium 2 MG COUMADIN 1700 ONE 04/09 1700 AC PO 04/09 1701 Last 24 Hrs of Lab/Gael Results Last 24 Hrs of Labs/Mics: Laboratory Tests 04/09/16 0500: Anion Gap 17 H, Estimated GFR 12 L, BUN/Creatinine Ratio 25.2 H, PT 22.6 H, INR 2.17 H, CBC w Diff NO MAN DIFF REQ, RBC 3.01 L, MCV 82.1, MCH 27.0, RDW 15.3 H, MPV 9.8, Gran % 61.4, Lymphocytes % 18.7 L, Monocytes % 13.0 H, Eosinophils % 6.3 H, Basophils % 0.6, Absolute Granulocytes 3.5, Absolute Lymphocytes 1.1 L, Absolute Monocytes 0.7 H, Absolute Eosinophils 0.4, Absolute Basophils 0, PUBS MCHC 32.9 L Assessment/Plan Assessment: # spontaneous (no trauma) left side abdominal Wall hematoma. Pt was found to have supratherapeutic INR on admission (>10). His H&H is stable is stable for now. INR was reversed by vitamin K and 6 units of FFP. His INR after FFP is 2.12. His INR today is 2.17 * We will repeat his labs later today * if needed may by blood transfuse. 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 specially that now he has a large abdominal hematoma. Patient was seen by nephrology today * We will continue Bumex 2 mg by mouth twice a day, as per nephrology * monitor ins/outs * continue his immunosuppressants medications * We, will considerbroad spectrum Abx as his hematoma is a nidus for infection * We will repeat RFT daily * Patient most likely will be planned for dialysis as per nephrology * We will follow any nephrology recommendation #Paroxysmal A.fib Pt now is NSR. He presented with supratherapeutic INR(>10). * we will continue his amiodarone * we will continue his toprol XL 100mg daily for now. * Dr. Dunlap has already been consulted we will follow his recommendation #Chest pain Ration has multiple episodes of current chest pain, Even though the patient reported such pain after food. * Acute coronary syndrome was ruled out * Patient will be on telemetry after he gets stabilized * Cardiology is on board #HTN/DM * continue home meds but we will use a novolog sliding scale and give levemir instead of glargine nightly * FSG TIDAC/HS FULL CODE ALPS for dvt ppx CC3 diet Problem List: 1. Supratherapeutic INR 2. Hematoma Pain Ratin Pain Location: none Pain Goal: Remain pain free Pain Plan: See assessment and plan Tomorrow's Labs & Rationales: CBC, BEP
[2016-04-09 08:00] VITALS: BP 111/50
--- NOTE | 2016-04-09 11:58 | PN- Nephrology ---
Assessment/Plan Assessment: 1. CKD stage V - status post LRD transplant 2000 2. ULISES - improving but with persistent prerenal component 3. Abdominal wall hematoma in setting of supratherapeutic INR - improving 4. Chest pain of uncertain etiology - resolved - negative troponins 5. Pulmonary vascular congestion - clinically improved Suggestion: 1. Continue current diuretic regimen 2. Mobilize as feasible 3. No dialysis need for now Subjective Subjective: Patient looks and feels better today. Denies shortness of breath or chest pain. He ate a smaller breakfast this morning and he feels that his chest pain yesterday was related to eating too much, too quickly in the morning at that time. Vital signs are stable and he is afebrile. BUN remains quite elevated but creatinine is drifting down - 5.0 today. Objective Vital Signs and I&Os Vital Signs Date Time Temp Pulse Resp B/P Pulse O2 O2 Flow FiO2 Ox Delivery Rate 04/09 0800 95 Nasal 5.0L Cannula 04/09 0800 97.4 60 20 111/50 95 Nasal 5.0L Cannula 04/09 0526 56 91 04/09 0400 96 CPAP 7.0L 04/09 040 98.1 58 18 116/52 96 CPAP 7.0L 04/09 0332 59 95 04/09 0019 65 90 04/09 0000 92 CPAP 7.0L 04/09 0000 97.6 66 18 120/56 92 CPAP 7.0L 04/08 2355 67 86 04/08 2227 68 95 04/08 2103 71 116/49 04/08 1999 93 Nasal 4.0L Cannula 04/08 1999 97.1 80 28 126/58 93 Nasal 4.0L Cannula 04/08 1600 93 Nasal 4.0L Cannula 04/08 1600 98.4 80 20 120/64 93 Nasal 4.0L Cannula 04/08 1200 95 Nasal 4.0L Cannula Intake & Output 04/09 1600 04/09 0400 04/08 1600 04/08 0400 04/07 040 Intake Total 821 208 0302 470 Output Total 0 200 750 420 Balance 120 0 415 50 Intake, Blood 295 Product Intake, IV 50 350 Intake, Oral 120 200 820 120 Number 0 Bowel Movements Output, Urine 0 200 750 420 Patient 190 lb 193 lb 186 lb Weight Physical Exam: General: Well-developed obese white male in no acute distress Skin: No rash or jaundice HEENT: Prosthetic left eye, no icterus Neck: Without masses or thyromegaly, no supraclavicular or cervical adenopathy Chest: Rales and decreased breath sounds at right base, left lung clear Heart: Regular rate and rhythm without S3 or rub Abdomen: Soft with large ecchymosis in the left upper quadrant region overlying subcutaneous induration/mass which is now less tender Extremities: Without cyanosis or edema Neuro: No focal findings, no asterixis or myoclonus Current Medications: Current Medications Sig/Harjinder Start time Last Medication Dose Route Stop Time Status Admin Acetaminophen 650 MG Q6P PRN 04/07 2044 AC PO Acetaminophen 1,000 MG Q6P PRN 04/07 2044 IV Amiodarone HCl 100 MG DAILY 04/08 1000 AC 04/09 PO 0947 Amlodipine Besylate 10 MG DAILY 04/08 1000 AC 04/09 PO 0948 Atorvastatin Calcium 20 MG 1700 04/07 1700 AC 04/08 PO 1708 Bumetanide 2 MG BID 04/08 1132 AC 04/09 PO 0946 Dextrose 25 GM ONCE ONE 04/09 0745 OK 04/09 IV 04/09 0746 0744 Docusate Sodium 100 MG BID PRN 04/08 1200 AC 04/08 PO 1244 Fish Oil 1,050 MG DAILY 04/08 1000 AC 04/09 PO 0945 Hydromorphone HCl 4 MG Q8P PRN 04/07 1615 AC 04/09 PO 0945 Insulin Detemir 16 UNITS QPM 04/07 2200 AC 04/08 SC 2102 Metoprolol Succinate 100 MG DAILY 04/08 1000 DC 04/08 PO 0940 Metoprolol Tartrate 100 MG BID 04/08 2200 AC 04/09 PO 0948 Multivitamins 1 TAB DAILY 04/08 1000 AC 04/09 PO 0948 Mycophenolate Mofetil 750 MG 0700,1900 04/07 1900 AC 04/09 PO 0719 Nitroglycerin 0.6 MG DAILY 04/08 1000 AC 04/09 TOP 0946 Omeprazole 40 MG DAILY AC 04/08 1148 AC 04/09 PO 0718 Ondansetron HCl 4 MG Q6P PRN 04/07 2015 AC 04/07 IV 2038 Polyethylene Glycol 17 GM DAILY 04/08 1317 AC 04/09 PO 0946 Senna 187 MG AT BEDTIME 04/08 2199 AC 04/08 PO 2102 Tacrolimus 1.5 MG DAILY 04/08 1000 AC 04/09 PO 09 Tacrolimus 1 MG AT BEDTIME 04/07 2199 AC 04/08 PO 2103 Results Pertinent Lab Results: Laboratory Tests 04/09 04/08 0500 1000 Chemistry Sodium (137 - 145 mmol/L) 142 145 Potassium (3.5 - 5.1 mmol/L) 3.9 4.3 Chloride (98 - 107 mmol/L) 104 108 H Carbon Dioxide (22 - 30 mmol/L) 21 L 22 Anion Gap (5 - 16) 17 H 15 BUN (9 - 20 mg/dL) 126 *H 124 *H Creatinine (0.7 - 1.2 mg/dL) 5.0 H 5.0 H Estimated GFR (>60 ml/min) 12 L 12 L BUN/Creatinine Ratio (7 - 25 %) 25.2 H 24.8 Troponin I (<0.11 ng/ml) 0.06 Coagulation PT (9.4 - 12.5 SEC) 22.6 H INR (0.90 - 1.17) 2.17 H Hematology CBC w Diff NO MAN DIFF REQ NO MAN DIFF REQ WBC (4.8 - 10.8 /CUMM) 5.7 7.1 RBC (4.70 - 6.10 /CUMM) 3.01 L 3.26 L Hgb (14.0 - 18.0 G/DL) 8.1 L 8.7 L Hct (42 - 52 %) 24.7 L 26.6 L MCV (80.0 - 94.0 FL) 82.1 81.6 MCH (27.0 - 31.0 PG) 27.0 26.7 L RDW (11.5 - 14.5 %) 15.3 H 15.1 H Plt Count (130 - 400 /CUMM) 141 141 MPV (7.4 - 10.4 FL) 9.8 9.3 Gran % (42.2 - 75.2 %) 61.4 71.8 Lymphocytes % (20.5 - 51.1 %) 18.7 L 13.3 L Monocytes % (1.7 - 9.3 %) 13.0 H 9.8 H Eosinophils % (0 - 5 %) 6.3 H 4.8 Basophils % (0.0 - 2.0 %) 0.6 0.3 Absolute Granulocytes (1.4 - 6.5 /CUMM) 3.5 5.1 Absolute Lymphocytes (1.2 - 3.4 /CUMM) 1.1 L 0.9 L Absolute Monocytes (0.10 - 0.60 /CUMM) 0.7 H 0.7 H Absolute Eosinophils (0.0 - 0.7 /CUMM) 0.4 0.3 Absolute Basophils (0.0 - 0.2 /CUMM) 0 0 PUBS MCHC (33.0 - 37.0 G/DL) 32.9 L 32.7 L 04/08 04/08 0500 0120 Chemistry Sodium (137 - 145 mmol/L) Cancelled 144 Potassium (3.5 - 5.1 mmol/L) Cancelled 4.1 Chloride (98 - 107 mmol/L) Cancelled 107 Carbon Dioxide (22 - 30 mmol/L) Cancelled 19 L Anion Gap (5 - 16) Cancelled 17 H BUN (9 - 20 mg/dL) Cancelled 128 *H Creatinine (0.7 - 1.2 mg/dL) Cancelled 5.2 *H Estimated GFR (>60 ml/min) 11 L Glucose (65 - 99 mg/dL) Cancelled 143 H Calcium (8.4 - 10.2 mg/dL) Cancelled 10.4 H Phosphorus (2.5 - 4.5 mg/dL) Cancelled 7.2 H Magnesium (1.6 - 2.3 mg/dL) Cancelled 2.3 Total Bilirubin (0.2 - 1.3 mg/dL) Cancelled 0.6 AST (17 - 59 U/L) Cancelled 22 ALT (21 - 72 U/L) Cancelled 41 Troponin I (<0.11 ng/ml) 0.04 Albumin (3.5 - 5.0 g/dL) Cancelled 4.4 Coagulation PT (9.4 - 12.5 SEC) 22.1 H INR (0.90 - 1.17) 2.12 H Hematology CBC w Diff Cancelled NO MAN DIFF REQ WBC (4.8 - 10.8 /CUMM) Cancelled 8.8 RBC (4.70 - 6.10 /CUMM) Cancelled 3.45 L Hgb (14.0 - 18.0 G/DL) Cancelled 9.4 L Hct (42 - 52 %) Cancelled 28.1 L MCV (80.0 - 94.0 FL) Cancelled 81.4 MCH (27.0 - 31.0 PG) Cancelled 27.2 RDW (11.5 - 14.5 %) Cancelled 15.1 H Plt Count (130 - 400 /CUMM) Cancelled 146 MPV (7.4 - 10.4 FL) Cancelled 9.9 Gran % (42.2 - 75.2 %) 71.5 Lymphocytes % (20.5 - 51.1 %) 15.6 L Monocytes % (1.7 - 9.3 %) 8.9 Eosinophils % (0 - 5 %) 3.7 Basophils % (0.0 - 2.0 %) 0.3 Absolute Granulocytes (1.4 - 6.5 /CUMM) 6.3 Absolute Lymphocytes (1.2 - 3.4 /CUMM) 1.4 Absolute Monocytes (0.10 - 0.60 /CUMM) 0.8 H Absolute Eosinophils (0.0 - 0.7 /CUMM) 0.3 Absolute Basophils (0.0 - 0.2 /CUMM) 0 PUBS MCHC (33.0 - 37.0 G/DL) Cancelled 33.5 04/07 04/07 2300 2127 Chemistry Troponin I Cancelled Urines Urinalysis LIGHT H Urine Color (YEL,AMB,STR) YEL Urine Clarity (CLEAR) CLEAR Urine pH (5.0 - 8.0) 5.5 Ur Specific [place] (1.001 - 1.035) 1.020 Urine Protein (NEG,<30 MG/DL) TRACE H Urine Ketones (NEG) NEG Urine Nitrite (NEG) NEG Urine Bilirubin (NEG) NEG Urine Urobilinogen (0.1 - 1.0 EU/dl) 0.2 Ur Leukocyte Esterase (NEG) NEG Ur Microscopic SEDIMENT EXAMINED Urine RBC (0 - 5 /HPF) 1-3 Ur Epithelial Cells (NONE,FEW) RARE Urine Crystals RARE [place] Urine Hemoglobin (NEG) TRACE-LYSED H Urine Glucose (N MG/DL) NEG 04/07 1030 Chemistry Sodium (137 - 145 mmol/L) Cancelled 144 Potassium (3.5 - 5.1 mmol/L) Cancelled 4.6 Chloride (98 - 107 mmol/L) Cancelled 107 Carbon Dioxide (22 - 30 mmol/L) Cancelled 18 L Anion Gap (5 - 16) Cancelled 19 H BUN (9 - 20 mg/dL) Cancelled 130 *H Creatinine (0.7 - 1.2 mg/dL) Cancelled 5.5 *H Estimated GFR (>60 ml/min) 11 L BUN/Creatinine Ratio (7 - 25 %) Cancelled 23.6 Glucose (65 - 99 mg/dL) 135 H Calcium (8.4 - 10.2 mg/dL) 10.4 H Total Bilirubin (0.2 - 1.3 mg/dL) 0.5 AST (17 - 59 U/L) 35 ALT (21 - 72 U/L) 41 Alkaline Phosphatase (< 127 U/L) 157 H Creatine Kinase (55 - 170 U/L) 25 L Troponin I (<0.11 ng/ml) 0.03 Total Protein (6.3 - 8.2 g/dL) 8.2 Albumin (3.5 - 5.0 g/dL) 4.1 Globulin (1.9 - 4.2 gm/dL) 4.1 Albumin/Globulin Ratio (1.1 - 2.2 %) 1.0 L Amylase (30 - 110 U/L) 37 Lipase (23 - 300 U/L) 33 Coagulation PT (9.4 - 12.5 SEC) Cancelled > 103.0 *H INR (0.90 - 1.17) Cancelled > 10.0 *H APTT (25 - 37 SEC) > 120 *H Hematology CBC w Diff Cancelled NO MAN DIFF REQ WBC (4.8 - 10.8 /CUMM) Cancelled 11.9 H RBC (4.70 - 6.10 /CUMM) Cancelled 4.48 L Hgb (14.0 - 18.0 G/DL) Cancelled 11.9 L Hct (42 - 52 %) Cancelled 36.8 L MCV (80.0 - 94.0 FL) Cancelled 82.1 MCH (27.0 - 31.0 PG) Cancelled 26.7 L RDW (11.5 - 14.5 %) Cancelled 15.0 H Plt Count (130 - 400 /CUMM) Cancelled 183 MPV (7.4 - 10.4 FL) Cancelled 9.6 Gran % (42.2 - 75.2 %) 78.9 H Lymphocytes % (20.5 - 51.1 %) 10.0 L Monocytes % (1.7 - 9.3 %) 7.5 Eosinophils % (0 - 5 %) 3.2 Basophils % (0.0 - 2.0 %) 0.4 Absolute Granulocytes (1.4 - 6.5 /CUMM) 9.4 H Absolute Lymphocytes (1.2 - 3.4 /CUMM) 1.2 Absolute Monocytes (0.10 - 0.60 /CUMM) 0.9 H Absolute Eosinophils (0.0 - 0.7 /CUMM) 0.4 Absolute Basophils (0.0 - 0.2 /CUMM) 0 PUBS MCHC (33.0 - 37.0 G/DL) Cancelled 32.5 L
[2016-04-09 14:02] VITALS: BP 100/50
--- NOTE | 2016-04-09 14:12 | PN- Att Addend ---
Attending Addendum Attending Brief Note Pt seen and examined, agree with hospital internship's note. 61-year-old male with past medical history of diabetes, hypertension and hyperlipidemia, A. fib on Coumadin. He also has a history of renal transplant with dysfunction and chronic kidney disease and extensive hospital stay in January- February at [facility] for flail chest complicated by PEA arrest. He is here with a spontaneous abdominal wall hematoma with severe coagulopathy. We corrected the coagulopathy with 6 units of FFP. His INR is down to 2 today and his crit is stable and the hematoma appears stable. I spoke to him at length and given his chads score is high we can restart the Coumadin at a very low dose today. I also discussed this with Joaquin Garcia MD and we are going to give him 2 mg of Coumadin today and watch the INR closely. And then taper the oxygen as tolerated. He used 1 L at home and he is back on his Bumex diuretics. Will watch the ULISES on CKD closely.
--- NOTE | 2016-04-09 15:00 | Transfer of Care Summary ---
Hospital Course Course Hospital Course: 61/M with PMH of [place] (on warfarin), HTN, HLD, CHF, T1DM, [place], CAD with cardiac myopathy, dyslipidemia, renal failure (S/P nephrectomy with renal transplant now has CKD), PVD (s/p right popliteal anterior tibial bypass), chronic leg pain who presented to [facility] emergency department complaining of left abdominal hematoma. Around Thanksgiving Patient was admitted to [facility] to be treated for FLAIR chest after he fell on his side. Patient was discharged 2 weeks ago. ON discharge his warfarin dose was increased from 2.5 Mg to 5 mg daily. 2 days prior to admission patient woke up with a small bruises on his belly, earlier on the day of admission patient woke up fine a large hematoma on the left side of his abdomen. On admission patient was found to have INR > 10. On examination there was a 4x8 inches hematoma on the left side of his abdomen. Problems that were addressed since admission: 1-Supratherapeutic INR with spontaneous (no trauma) left side abdominal Wall hematoma. On admission patient was found to have a supratherapeutic INR >10. Because of the hematoma in his left side abdomen a CT was ordered to evaluate the extension of his hematoma. Results of CT was Subcutaneous swelling in the left anterior abdomen overlying the rectus abdominis muscle, consistent with abdominal wall hematoma, No evidence of intra-abdominal hematoma. Patient was hemodynamically stable, we decided to reverse his INR, to accomplish so she received 6 packs of FFP and vitamin K. A CBC and INR post FFP was 2.12. Repeated INR on the day of transfer was 2.17, per nephrology it's okay to start 2 mg of warfarin daily. ####Recommendation for the next team#### * Repeat CBC daily * Recheck INR daily and dose Coumadin accordingly. * currently gina is receiving 2 mg of Coumadin. 2-Acute on chronic kidney failure Patient had a history of LRDT he is on tacrolimus and mycophenylate ( immunosuppressive) , this may increase his risk of infection. specially that now he has a large abdominal hematoma. Patient was seen by nephrology on the day of admission. On the day of admission nephrology recommended that we hold Bumex because of elevated creatinine. However on the second day he agreed that we should start Bumex 2 mg by mouth daily. Today patient creatinine is 5, BUN 126 and his estimated GFR is 12. Nephrology still believe that patient does not need dialysis, however may be in the near future he will. ####Recommendation for the next team#### * Repeat renal function daily * Continue Bumex as per nephrology * Follow-up nephrology recommendation 3-stable paroxysmal A. fib Patient has a history of A. fib, since admission he is on normal sinus rhythm. Patient is receiving amiodarone, Metoprolol 100mg BID. Cardiology is on board. ####Recommendation for the next team#### * Continue current medication * Follow cardiology recommendations 4-recurrent chest pain that's related to food Cardiology believe this is likely pain related to his hematoma rather than the discomfort of myocardial ischemia. Nevertheless, it is known that this patient has ischemia in the territory of his LCX. He has also had a NSTEMI in the past. cardiology does have a plan for eventual cardiac catheterization but wanted to avoid pursuing this procedure while his kidney is compromized since the contrast load would certainly push him toward dialysis. ####Recommendation for the next team#### * Because we believe it related to his GI, continuous Ree and Colace * He is on Dilaudid when necessary * Cardiology recommended transdermal nitroglycerin patch. * Follow-up cardiology recommendation 5-HTN/DM Patient has complicated type 1 diabetes mellitus, earlier today patient dropped blood sugar under 50. His blood pressure is fairly control on current regimen. ####Recommendation for the next team#### * Continue insulin NovoLog * keep eye on his blood sugar * Metoprolol is controlling his blood pressure. Assessment/Plan: Included in hospital course
--- NOTE | 2016-04-09 18:00 | PN- Cardiology ---
Subjective Subjective: * Doing much better without chest discomfort. A little abdominal discomfort is noted. * Mildly decreased HCT. * sinus rhythm * normal EF on echo Objective Vital Signs and I&Os Vital Signs Date Time Temp Pulse Resp B/P Pulse O2 O2 Flow FiO2 Ox Delivery Rate 04/09 1654 94 Nasal 5.0L Cannula 04/09 1402 96.9 63 20 100/50 93 Nasal 5.0L Cannula 04/09 0800 95 Nasal 5.0L Cannula 04/09 0800 97.4 60 20 111/50 95 Nasal 5.0L Cannula 04/09 0526 56 91 04/09 0400 96 CPAP 7.0L 04/09 0400 98.1 58 18 116/52 96 CPAP 7.0L 04/09 0332 59 95 04/09 0019 65 90 04/09 0000 92 CPAP 7.0L 04/09 0000 97.6 66 18 120/56 92 CPAP 7.0L 04/08 2355 67 86 04/08 2227 68 95 04/08 2103 71 116/49 04/08 1999 93 Nasal 4.0L Cannula 04/08 1999 97.1 80 28 126/58 93 Nasal 4.0L Cannula Intake & Output 04/09 1600 04/09 0800 04/09 0000 04/08 1600 04/08 0800 04/08 0000 Intake Total 1200 120 200 720 445 470 Output Total 500 0 200 450 300 420 Balance 700 120 0 270 145 50 Intake, Blood 295 Product Intake, IV 20 30 350 Intake, Oral 1200 120 200 700 120 120 Number 0 0 0 Bowel Movements Output, Urine 500 0 200 450 300 420 Patient 190 lb 193 lb Weight Physical Exam: General: WD/ obese male in NAD; alert and oriented x 3 Neck: no JVD, no carotid bruit Heart: RRR w/o murmur Lungs: clear bilaterally Extremities: no edema, venous stasis changes Assessment/Plan Assessment/Plan * Review of this patient's records does not show any evidence of atrial fibrillation for well over a year. This is likely due to his being on Amiodarone. In consideration of his bleeding I would stop the coumadin. We will monitor him closely to see if he again converts to atrial fibrillation. His left atrial size is in the normal range which is a reasonable predictor that he may remain in sinus rhythm. * No significant chest pain or ischemic changes. Continue telemetry? Yes
[2016-04-09 20:00] VITALS: BP 98/58
[2016-04-10 00:21] VITALS: BP 106/56
--- NOTE | 2016-04-10 07:17 | PN- Housestaff ---
Subjective Follow-up For: Spontaneous abdominal hematoma secondary to supratherapeutic INR Chronic kidney disease Complaints: tender abdoman Tele-Events Since Last Visit: There is no any overnight cardiac events. HR was between 59 - 61. Subjective: Patient is seen and examined at the bedside. He was on CPAP. He is feeling comfortable. On palpation, he told that his abdomen is tender, 7/10. He denies of any nausea, vomiting, chest pain, difficulty breathing. Review of Systems Constitutional: Reports: malaise. Denies: chills, diaphoresis, fever, weakness. EENTM: Denies: no symptoms. Cardiovascular: Reports: peripheral edema. Denies: chest pain, edema, orthopena, palpitations. Respiratory: Denies: cough, hemoptysis, orthopnea, short of breath, sputum production. Gastrointestinal: Reports: abdominal pain. Denies: bloating, constipation, diarrhea, distention. Genitourinary: Denies: discharge, dysuria. Musculoskeletal: Denies: back pain, gout, joint pain. Skin: Reports: change in skin color, erythema. Objective Last 24 Hrs of Vital Signs/I&O Vital Signs Date Time Temp Pulse Resp B/P Pulse O2 O2 Flow FiO2 Ox Delivery Rate 04/10 0305 59 04/10 0021 97.7 60 12 106/56 91 CPAP 4.0L 04/10 0015 59 914 04/10 0000 Nasal 4.0L Cannula 04/09 2223 62 114/62 04/09 2000 97.2 60 98/58 94 Nasal 4.0L Cannula 04/09 1923 60 94 04/09 1654 94 Nasal 5.0L Cannula 04/09 1402 96.9 63 20 100/50 93 Nasal 5.0L Cannula Intake & Output 04/10 1600 04/10 0800 04/10 0000 Intake Total 60 500 Output Total 250 300 Balance -190 200 Intake, IV 10 Intake, Oral 50 500 Output, Urine 250 300 Physical Exam General Appearance: Alert, Oriented X3, Cooperative, No Acute Distress Skin: small hematoma on left upper abdomen, multiple hematoma on left lower leg HEENT: Atraumatic, PERRLA, EOMI Neck: Supple, No JVD Cardiovascular: Regular Rate, Normal S1, Normal S2 Lungs: Clear to Auscultation Abdomen: Soft, tenderness 7/10 Neurological: Normal Speech Extremities: No Clubbing, No Cyanosis, No Edema Vascular: Normal Pulses Assessment/Plan Assessment: 61/M with PMH of [place] (on warfarin), HTN, HLD, CHF, T1DM, [place], CAD with cardiac myopathy, renal failure (S/P nephrectomy with renal transplant now has CKD, PVD (s/p right popliteal anterior tibial bypass), chronic leg pain who presented to [facility] emergency department complaining of left abdominal hematoma. 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 Patient was in normal sinus rhythm since last one year. Doesn't require any anticoagulation. So we will stop the warfarin. Today PT/INR is 19.4/1.86 * His hemoglobin is 7.5, last iron study showed serum iron-47, TIBC-211, it seems to me that it is a anemia of chronic disease. we'll discuss with Dr. Garcia, if he needs erythropoietin or blood transfusion as the patient has Hx of coronary artery disease/recurrent chest pain. * Discussed with Dr Garcia, we will transfuse 1 unit of PRBC. We will give IV 1 mg Bumetenide before transfusing blood, to prevent fluid overload. * We will also check stool for occult blood and CT abd to know the size of hematoma, to know the cause of blood loss. * We will restart him on home doses of Levemir 16U s/c BID * Diet-renal diet * CODE STATUSminute along withfull code * DVT prophylaxis -ALPS Problem List: 1. Abdominal wall hematoma 2. [id number] kidney injury 3. Diabetes mellitus 4. Obstructive sleep apnea syndrome 5. Anemia of chronic disease 6. Diabetes mellitus type 1 Pain Ratin Pain Location: Abdomen Pain Goal: Remain pain free Pain Plan: mild. avoid NSAIDs Tomorrow's Labs & Rationales: cbc, bep DVT/Prophylaxis: mechanical Ration has multiple episodes of current chest pain, Even though the patient reported such pain after food. * Acute coronary syndrome was ruled out * Patient will be on telemetry after he gets stabilized * Cardiology is on board #HTN/DM * continue home meds but we will use a novolog sliding scale and give levemir instead of glargine nightly * FSG TIDAC/HS FULL CODE ALPS for dvt ppx CC3 diet
[2016-04-10 07:45] LABS: ABSOLUTE BASOPHIL COUNT 0 /CUMM (0.0-0.2); ABSOLUTE EOSINOPHIL COUNT 0.5 /CUMM (0.0-0.7); ABSOLUTE GRANULOCYTE CT 5.5 /CUMM (1.4-6.5); ABSOLUTE LYMPH COUNT 0.9 /CUMM (1.2-3.4); ABSOLUTE MONOCYTE COUNT 0.6 /CUMM (0.10-0.60); BASOPHIL % 0.4 % (0.0-2.0); EOSINOPHIL % 6.5 % (0-5); GRANULOCYTE % 72.5 % (42.2-75.2); HEMATOCRIT 22.6 % (42-52); MEAN CORPUSCULAR HGB 27.2 PG (27.0-31.0); MEAN CORPUSCULAR HGB CONC 33.2 G/DL (33.0-37.0); MEAN CORPUSCULAR VOLUME 82.1 FL (80.0-94.0); MEAN PLATELET VOLUME 9.6 FL (7.4-10.4); PLATELET COUNT 166 /CUMM (130-400); RBC DISTRIBUTION WIDTH 14.7 % (11.5-14.5); RED BLOOD CELL CT 2.76 /CUMM (4.70-6.10); WHITE BLOOD CELL COUNT 7.5 /CUMM (4.8-10.8)
[2016-04-10 08:35] LABS: PT 19.4 SEC (9.4-12.5)
[2016-04-10 08:53] VITALS: BP 112/60
--- NOTE | 2016-04-10 09:02 | PN- Att Addend ---
Attending Addendum Attending Brief Note Patient seen and examined. Agree with the architect intern's note. Appreciate cardiology evaluation who feels that given that the patient has been in sinus rhythm for over a year and given the risks of bleeding we don't need to continue the anticoagulation. He is a 61-year-old with diabetes, hypertension, hyperlipidemia, coronary artery disease and CKD, he is here with this large abdominal wall hematoma in the setting of coagulopathy and ULISES on CKD. His BUN and creatinine are getting better slowly. Will titrate off his oxygen. He is anemic, I suspect this is all from the blood loss into the hematoma and the CKD but will talk to Renal about questionable transfusion.
--- NOTE | 2016-04-10 13:00 | PN- Cardiology ---
Subjective Subjective: * Patient denies chest discomfort or abdominal pain but does have a cough. * sinus rhythm * Currently receiving a blood transfusion due to decreasing H/H. Objective Vital Signs and I&Os Vital Signs Date Time Temp Pulse Resp B/P Pulse O2 O2 Flow FiO2 Ox Delivery Rate 04/10 0914 112/60 04/10 0913 112/60 04/10 0853 97.8 68 18 112/60 96 Nasal 4.0L Cannula 04/10 0808 97 Nasal 4.0L Cannula 04/10 0305 59 04/10 0021 97.7 60 12 106/56 91 CPAP 4.0L 04/10 0015 59 914 04/10 0000 Nasal 4.0L Cannula 04/09 2223 62 114/62 04/09 2000 97.2 60 98/58 94 Nasal 4.0L Cannula 04/09 1923 60 94 04/09 1654 94 Nasal 5.0L Cannula 04/09 1402 96.9 63 20 100/50 93 Nasal 5.0L Cannula Intake & Output 04/10 1600 04/10 0800 04/10 0000 04/09 1600 04/09 0800 04/09 0000 Intake Total 60 500 1200 120 200 Output Total 250 300 500 0 200 Balance -190 200 700 120 0 Intake, IV 10 Intake, Oral 50 500 1200 120 200 Number 0 Bowel Movements Output, Urine 250 300 500 0 200 Physical Exam: General: WD/ obese male in NAD; alert and oriented x 3 Neck: no JVD, no carotid bruit Heart: RRR w/o murmur Lungs: clear bilaterally Extremities: no edema, venous stasis changes Assessment/Plan Assessment/Plan * Review of this patient's records does not show any evidence of atrial fibrillation for well over a year. This is likely due to his being on Amiodarone. In consideration of his bleeding we can not stop chronic anticoagulation. He should remain on aspirin due to his history of CAD. We will monitor him closely to see if he again converts to atrial fibrillation. His left atrial size is in the normal range which is a reasonable predictor that he may remain in sinus rhythm. * No significant chest pain or ischemic changes. * This patient has a cough with some interstitial edema noted on his chest X- ray. Would give an extra dose of Bumex 2mg considering that he is now receiving blood. Continue telemetry? Yes
[2016-04-10 15:30] VITALS: BP 102/58
--- NOTE | 2016-04-10 16:13 | CT SCAN REPORT ---
EXAMINATION: CT ABDOMEN AND PELVIS WITHOUT CONTRAST CLINICAL INFORMATION: Abdominal wall hematoma. COMPARISON: CT abdomen and pelvis without contrast 04/07/2016. TECHNIQUE: Multidetector volumetric imaging was performed from the superior aspect of the liver through the pubic symphysis. Sagittal and coronal reformatted images were obtained on the technologist's workstation. DLP: 637 mGy-cm. FINDINGS: Limited evaluation of the solid abdominal viscera in the absence of intravenous contrast. LUNG BASES: Evaluation of the included lung bases demonstrates bibasilar subsegmental atelectasis. No pleural or pericardial effusions are identified. LIVER, GALLBLADDER, AND BILIARY TREE: The liver is normal in size, shape, and attenuation. No focal hepatic lesion or biliary ductal dilatation is present. The gallbladder is unremarkable with no evidence of radiopaque gallstones, gallbladder wall thickening, or obvious pericholecystic inflammatory changes. PANCREAS: Unremarkable. SPLEEN: Unremarkable. ADRENAL GLANDS: Coarse calcifications are identified within the right adrenal gland. There is associated nodularity within the right adrenal gland, with the largest nodule visualized measuring approximately 0.9 cm. The left adrenal gland appears unremarkable. KIDNEYS AND URETERS: The bilateral standing rock kidneys are atrophic. Redemonstrated is a 1.7 x 2.0 cm simple renal cortical cyst arising from the lower pole of the right kidney. There is a renal transplant within the left iliac fossa which is visualized measuring approximately 10.4 cm in length. No perinephric fluid collections are identified. There are no renal or ureteral stones and there is no appreciable hydroureteronephrosis of the standing rock kidneys with renal transplant. BLADDER: Unremarkable. GASTROINTESTINAL TRACT: Evaluation of the gastrointestinal system demonstrates postsurgical changes related to prior partial right hemicolectomy and ileocolonic anastomosis. The anastomotic site appears to be grossly patent. Abdominal and pelvic bowel loops are normal in caliber, without findings indicative of obstruction or ileus. No organizing intra-abdominal or pelvic fluid collections are identified and there are no extraluminal foci of air. No intraperitoneal or retroperitoneal hematoma is noted. ABDOMINAL WALL: In comparison to the prior examination, there has been interval decrease in size of a previously identified hematoma along the left paramedian anterior abdominal wall. There is also been interval decrease in subcutaneous stranding and soft tissue swelling along the left hemiabdomen. Minimal residual hematoma along the left anterior abdominal wall measures approximately 1 cm in AP diameter; previously, 2 cm. No new abdominal wall hematomas are identified. LYMPH NODES: No significant abdominal or pelvic adenopathy. VASCULAR: Extensive atherosclerosis of the abdominal aorta and its branching vessels, without aneurysmal dilatation. PELVIC VISCERA: Unremarkable. OSSEOUS STRUCTURES: No acute osseous abnormality. Normal alignment of the imaged thoracolumbar spine. Multilevel degenerative changes of the imaged thoracolumbar spine, notably at L3-L4. IMPRESSION: Interval decrease in size of a previously identified abdominal wall hematoma along the left paramedian anterior abdominal wall. On today's examination, residual hematoma along the left abdominal wall measures approximately one centimeters in maximum AP diameter; previously, 2 cm. No new abdominal wall fluid collections are identified. Additional nonemergent findings within the abdomen and pelvis, as detailed above.
--- NOTE | 2016-04-10 16:14 | PN- Nephrology ---
Assessment/Plan Assessment: 1. CKD stage V - status post LRD transplant 2000 2. ULISES - improving but with persistent prerenal component 3. Abdominal wall hematoma in setting of supratherapeutic INR - improving 4. Chest pain of uncertain etiology - resolved - negative troponins 5. Pulmonary vascular congestion - clinically improved 6. Anemia at least in part related to blood loss Suggestion: 1. Okay for transfusion of one unit of packed RBCs with IV bumetanide "coverage " 2. Coumadin being discontinued per Cardiology 3. Mobilize as feasible 4. No dialysis need Subjective Subjective: Patient continues to feel reasonably well without any specific complaints. He denies shortness of breath or chest pain. Coumadin being discontinued per Cardiology Objective Vital Signs and I&Os Vital Signs Date Time Temp Pulse Resp B/P Pulse O2 O2 Flow FiO2 Ox Delivery Rate 04/10 0914 112/60 04/10 0913 112/60 04/10 0853 97.8 68 18 112/60 96 Nasal 4.0L Cannula 04/10 0808 97 Nasal 4.0L Cannula 04/10 0305 59 04/10 0021 97.7 60 12 106/56 91 CPAP 4.0L 04/10 0015 59 914 04/10 0000 Nasal 4.0L Cannula 04/09 2223 62 114/62 04/09 2000 97.2 60 98/58 94 Nasal 4.0L Cannula 04/09 1923 60 94 04/09 1654 94 Nasal 5.0L Cannula Intake & Output 04/10 1600 04/10 0400 04/09 1600 04/09 0400 04/08 1600 04/08 0400 Intake Total 909 821 7966 200 1165 470 Output Total 900 300 500 200 750 420 Balance -90 200 820 0 415 50 Intake, Blood 350 295 Product Intake, IV 10 50 350 Intake, Oral 246 201 8722 200 820 120 Number 0 0 Bowel Movements Output, Urine 900 300 500 200 750 420 Patient 190 lb 193 lb Weight Physical Exam: General: Well-developed obese white male in no acute distress Skin: No rash or jaundice HEENT: Prosthetic left eye, no icterus Neck: Without masses or thyromegaly, no supraclavicular or cervical adenopathy Chest: Clear to P&A with some diminished breath sounds at bases Heart: Regular rate and rhythm without S3 or rub Abdomen: Soft with large ecchymosis in the left upper quadrant region overlying subcutaneous induration/mass which is much less tender Extremities: Without cyanosis or edema Neuro: No focal findings, no asterixis or myoclonus Current Medications: Current Medications Sig/Harjinder Start time Last Medication Dose Route Stop Time Status Admin Acetaminophen 650 MG Q6P PRN 04/07 2044 AC PO Acetaminophen 1,000 MG Q6P PRN 04/07 204 AC IV Amiodarone HCl 100 MG DAILY 04/08 1000 AC 04/10 PO 0913 Amlodipine Besylate 10 MG DAILY 04/08 1000 AC 04/10 PO 0914 Aspirin 81 MG DAILY 04/10 1430 AC PO Atorvastatin Calcium 20 MG 1700 04/07 1700 AC 04/09 PO 1612 Bisacodyl 5 MG DAILY PRN 04/10 1430 AC PO Bumetanide 1 MG ONCE ONE 04/10 0945 DC 04/10 IV 04/10 0946 1452 Bumetanide 2 MG BID 04/08 1132 AC 04/10 PO 0915 Docusate Sodium 100 MG BID PRN 04/08 1200 AC 04/08 PO 1244 Fish Oil 1,050 MG DAILY 04/08 1000 AC 04/10 PO 0913 Hydromorphone HCl 4 MG Q8P PRN 04/07 1615 AC 04/10 PO 1428 Insulin Aspart 0 TIDAC 04/09 1700 AC 04/10 SC 1241 Insulin Detemir 16 UNITS BID 04/10 1000 SC Insulin Detemir 16 UNITS QPM 04/07 2200 HI 04/10 SC 0838 Metoprolol Tartrate 100 MG BID 04/08 2200 AC 04/10 PO 0914 Multivitamins 1 TAB DAILY 04/08 1000 AC 04/10 PO 0914 Mycophenolate Mofetil 750 MG 0700,1900 04/07 1900 04/10 PO 0627 Nitroglycerin 0.6 MG DAILY 04/08 1000 AC 04/10 TOP 0913 Omeprazole 40 MG DAILY AC 04/08 1148 AC 04/10 PO 0627 Ondansetron HCl 4 MG Q6P PRN 04/07 2015 04/07 IV 2038 Patient Medication 1 ED .STK-MED ONE 04/10 1346 DC Teaching ED 04/10 1347 Polyethylene Glycol 17 GM DAILY 04/08 1317 04/10 PO 0913 Senna 187 MG AT BEDTIME 04/08 2200 AC 04/09 PO 2223 Tacrolimus 1.5 MG DAILY 04/08 1000 AC 04/10 PO 0914 Tacrolimus 1 MG AT BEDTIME 04/07 2199 AC 04/09 PO 2223 Warfarin Sodium 2 MG COUMADIN 1700 ONE 04/09 1700 DC 04/09 PO 04/09 1701 1613 Results Pertinent Lab Results: Laboratory Tests 04/10 04/09 0659 0500 Chemistry Sodium (137 - 145 mmol/L) 136 L 142 Potassium (3.5 - 5.1 mmol/L) 4.5 3.9 Chloride (98 - 107 mmol/L) 103 104 Carbon Dioxide (22 - 30 mmol/L) 20 L 21 L Anion Gap (5 - 16) 13 17 H BUN (9 - 20 mg/dL) 129 *H 126 *H Creatinine (0.7 - 1.2 mg/dL) 4.9 H 5.0 H Estimated GFR (>60 ml/min) 12 L 12 L BUN/Creatinine Ratio (7 - 25 %) 26.3 H 25.2 H Coagulation PT (9.4 - 12.5 SEC) 19.4 H 22.6 H INR (0.90 - 1.17) 1.86 H 2.17 H Hematology CBC w Diff NO MAN DIFF REQ NO MAN DIFF REQ WBC (4.8 - 10.8 /CUMM) 7.5 5.7 RBC (4.70 - 6.10 /CUMM) 2.76 L 3.01 L Hgb (14.0 - 18.0 G/DL) 7.5 L 8.1 L Hct (42 - 52 %) 22.6 L 24.7 L MCV (80.0 - 94.0 FL) 82.1 82.1 MCH (27.0 - 31.0 PG) 27.2 27.0 RDW (11.5 - 14.5 %) 14.7 H 15.3 H Plt Count (130 - 400 /CUMM) 166 141 MPV (7.4 - 10.4 FL) 9.6 9.8 Gran % (42.2 - 75.2 %) 72.5 61.4 Lymphocytes % (20.5 - 51.1 %) 12.3 L 18.7 L Monocytes % (1.7 - 9.3 %) 8.3 13.0 H Eosinophils % (0 - 5 %) 6.5 H 6.3 H Basophils % (0.0 - 2.0 %) 0.4 0.6 Absolute Granulocytes (1.4 - 6.5 /CUMM) 5.5 3.5 Absolute Lymphocytes (1.2 - 3.4 /CUMM) 0.9 L 1.1 L Absolute Monocytes (0.10 - 0.60 /CUMM) 0.6 0.7 H Absolute Eosinophils (0.0 - 0.7 /CUMM) 0.5 0.4 Absolute Basophils (0.0 - 0.2 /CUMM) 0 0 PUBS MCHC (33.0 - 37.0 G/DL) 33.2 32.9 L 04/08 04/08 1000 0500 Chemistry Sodium (137 - 145 mmol/L) 145 Cancelled Potassium (3.5 - 5.1 mmol/L) 4.3 Cancelled Chloride (98 - 107 mmol/L) 108 H Cancelled Carbon Dioxide (22 - 30 mmol/L) 22 Cancelled Anion Gap (5 - 16) 15 Cancelled BUN (9 - 20 mg/dL) 124 *H Cancelled Creatinine (0.7 - 1.2 mg/dL) 5.0 H Cancelled Estimated GFR (>60 ml/min) 12 L BUN/Creatinine Ratio (7 - 25 %) 24.8 Glucose Cancelled Calcium Cancelled Phosphorus Cancelled Magnesium Cancelled Total Bilirubin Cancelled AST Cancelled ALT Cancelled Troponin I (<0.11 ng/ml) 0.06 Albumin Cancelled Hematology CBC w Diff NO MAN DIFF REQ Cancelled WBC (4.8 - 10.8 /CUMM) 7.1 Cancelled RBC (4.70 - 6.10 /CUMM) 3.26 L Cancelled Hgb (14.0 - 18.0 G/DL) 8.7 L Cancelled Hct (42 - 52 %) 26.6 L Cancelled MCV (80.0 - 94.0 FL) 81.6 Cancelled MCH (27.0 - 31.0 PG) 26.7 L Cancelled RDW (11.5 - 14.5 %) 15.1 H Cancelled Plt Count (130 - 400 /CUMM) 141 Cancelled MPV (7.4 - 10.4 FL) 9.3 Cancelled Gran % (42.2 - 75.2 %) 71.8 Lymphocytes % (20.5 - 51.1 %) 13.3 L Monocytes % (1.7 - 9.3 %) 9.8 H Eosinophils % (0 - 5 %) 4.8 Basophils % (0.0 - 2.0 %) 0.3 Absolute Granulocytes (1.4 - 6.5 /CUMM) 5.1 Absolute Lymphocytes (1.2 - 3.4 /CUMM) 0.9 L Absolute Monocytes (0.10 - 0.60 /CUMM) 0.7 H Absolute Eosinophils (0.0 - 0.7 /CUMM) 0.3 Absolute Basophils (0.0 - 0.2 /CUMM) 0 PUBS MCHC (33.0 - 37.0 G/DL) 32.7 L Cancelled 04/08 04/07 0120 2300 Chemistry Sodium (137 - 145 mmol/L) 144 Potassium (3.5 - 5.1 mmol/L) 4.1 Chloride (98 - 107 mmol/L) 107 Carbon Dioxide (22 - 30 mmol/L) 19 L Anion Gap (5 - 16) 17 H BUN (9 - 20 mg/dL) 128 *H Creatinine (0.7 - 1.2 mg/dL) 5.2 *H Estimated GFR (>60 ml/min) 11 L Glucose (65 - 99 mg/dL) 143 H Calcium (8.4 - 10.2 mg/dL) 10.4 H Phosphorus (2.5 - 4.5 mg/dL) 7.2 H Magnesium (1.6 - 2.3 mg/dL) 2.3 Total Bilirubin (0.2 - 1.3 mg/dL) 0.6 AST (17 - 59 U/L) 22 ALT (21 - 72 U/L) 41 Troponin I (<0.11 ng/ml) 0.04 Albumin (3.5 - 5.0 g/dL) 4.4 Coagulation PT (9.4 - 12.5 SEC) 22.1 H INR (0.90 - 1.17) 2.12 H Hematology CBC w Diff NO MAN DIFF REQ WBC (4.8 - 10.8 /CUMM) 8.8 RBC (4.70 - 6.10 /CUMM) 3.45 L Hgb (14.0 - 18.0 G/DL) 9.4 L Hct (42 - 52 %) 28.1 L MCV (80.0 - 94.0 FL) 81.4 MCH (27.0 - 31.0 PG) 27.2 RDW (11.5 - 14.5 %) 15.1 H Plt Count (130 - 400 /CUMM) 146 MPV (7.4 - 10.4 FL) 9.9 Gran % (42.2 - 75.2 %) 71.5 Lymphocytes % (20.5 - 51.1 %) 15.6 L Monocytes % (1.7 - 9.3 %) 8.9 Eosinophils % (0 - 5 %) 3.7 Basophils % (0.0 - 2.0 %) 0.3 Absolute Granulocytes (1.4 - 6.5 /CUMM) 6.3 Absolute Lymphocytes (1.2 - 3.4 /CUMM) 1.4 Absolute Monocytes (0.10 - 0.60 /CUMM) 0.8 H Absolute Eosinophils (0.0 - 0.7 /CUMM) 0.3 Absolute Basophils (0.0 - 0.2 /CUMM) 0 PUBS MCHC (33.0 - 37.0 G/DL) 33.5 Urines Urinalysis LIGHT H Urine Color (YEL,AMB,STR) YEL Urine Clarity (CLEAR) CLEAR Urine pH (5.0 - 8.0) 5.5 Ur Specific [place] (1.001 - 1.035) 1.020 Urine Protein (NEG,<30 MG/DL) TRACE H Urine Ketones (NEG) NEG Urine Nitrite (NEG) NEG Urine Bilirubin (NEG) NEG Urine Urobilinogen (0.1 - 1.0 EU/dl) 0.2 Ur Leukocyte Esterase (NEG) NEG Ur Microscopic SEDIMENT EXAMINED Urine RBC (0 - 5 /HPF) 1-3 Ur Epithelial Cells (NONE,FEW) RARE Urine Crystals RARE [place] Urine Hemoglobin (NEG) TRACE-LYSED H Urine Glucose (N MG/DL) NEG 04/07 Chemistry Sodium Cancelled Potassium Cancelled Chloride Cancelled Carbon Dioxide Cancelled Anion Gap Cancelled BUN Cancelled Creatinine Cancelled BUN/Creatinine Ratio Cancelled Troponin I Cancelled Coagulation PT Cancelled INR Cancelled Hematology CBC w Diff Cancelled WBC Cancelled RBC Cancelled Hgb Cancelled Hct Cancelled MCV Cancelled MCH Cancelled RDW Cancelled Plt Count Cancelled MPV Cancelled PUBS MCHC Cancelled
[2016-04-10 21:21] VITALS: BP 108/60
[2016-04-10 21:49] LABS: ABSOLUTE BASOPHIL COUNT 0.1 /CUMM (0.0-0.2); ABSOLUTE EOSINOPHIL COUNT 0.4 /CUMM (0.0-0.7); ABSOLUTE GRANULOCYTE CT 4.1 /CUMM (1.4-6.5); ABSOLUTE MONOCYTE COUNT 0.7 /CUMM (0.10-0.60); EOSINOPHIL % 6.7 % (0-5); GRANULOCYTE % 65.6 % (42.2-75.2); HEMATOCRIT 27.5 % (42-52); MEAN CORPUSCULAR HGB 27.5 PG (27.0-31.0); MEAN CORPUSCULAR HGB CONC 33.2 G/DL (33.0-37.0); MEAN CORPUSCULAR VOLUME 82.8 FL (80.0-94.0); MEAN PLATELET VOLUME 9.6 FL (7.4-10.4); PLATELET COUNT 165 /CUMM (130-400); RBC DISTRIBUTION WIDTH 15.3 % (11.5-14.5); RED BLOOD CELL CT 3.32 /CUMM (4.70-6.10); WHITE BLOOD CELL COUNT 6.3 /CUMM (4.8-10.8)
[2016-04-10 22:29] VITALS: BP 110/54
[2016-04-11 07:57] LABS: ABSOLUTE BASOPHIL COUNT 0 /CUMM (0.0-0.2); ABSOLUTE EOSINOPHIL COUNT 0.4 /CUMM (0.0-0.7); ABSOLUTE GRANULOCYTE CT 3.4 /CUMM (1.4-6.5); ABSOLUTE LYMPH COUNT 0.8 /CUMM (1.2-3.4); ABSOLUTE MONOCYTE COUNT 0.6 /CUMM (0.10-0.60); BASOPHIL % 0.3 % (0.0-2.0); EOSINOPHIL % 6.8 % (0-5); GRANULOCYTE % 65.5 % (42.2-75.2); HEMATOCRIT 27.7 % (42-52); MEAN CORPUSCULAR HGB 28.2 PG (27.0-31.0); MEAN CORPUSCULAR HGB CONC 34.1 G/DL (33.0-37.0); MEAN CORPUSCULAR VOLUME 82.6 FL (80.0-94.0); MEAN PLATELET VOLUME 9.4 FL (7.4-10.4); PLATELET COUNT 154 /CUMM (130-400); RBC DISTRIBUTION WIDTH 15.1 % (11.5-14.5); RED BLOOD CELL CT 3.35 /CUMM (4.70-6.10); WHITE BLOOD CELL COUNT 5.2 /CUMM (4.8-10.8)
--- NOTE | 2016-04-11 08:23 | NUR ---
Pt REFUSAL. Pt REFUSED PT THIS AM STATING "I AM TOO TIRED, IT IS TOO EARLY FOR ME." PT WILL ATTEMPT TREATMENT LATER TODAY. CO-SIGNED ASHLEY BONILLAT
--- NOTE | 2016-04-11 08:39 | PN- Housestaff ---
JOSE MACKEY,SCARLETT 04/11/16 0838: Subjective Follow-up For: Spontaneous abdominal hematoma secondary to supratherapeutic INR Chronic kidney disease on transplanted kidney Complaints: no complaints Tele-Events Since Last Visit: 3 beats of V. tach and PVCs Subjective: Patient is seen and examined at the bedside. He was not having any active complaints. According to the nurse he is having episodes of hypertension,that's why they are not giving him beta sharlene. We will discuss with Dr. Dunlap for his management of blood pressure and heart rate including episodes of V. tach. Review of Systems Constitutional: Denies: no symptoms. Objective Last 24 Hrs of Vital Signs/I&O Vital Signs Date Time Temp Pulse Resp B/P Pulse O2 O2 Flow FiO2 Ox Delivery Rate 04/11 1501 97.8 65 20 106/60 92 Nasal 4.0L Cannula 04/11 0926 97.2 58 20 100/62 04/11 0925 97.2 58 20 100/62 04/11 0925 97.2 58 20 100/62 04/11 0858 97.2 58 20 100/62 97 CPAP 4.5L 04/11 0800 Nasal 2.0L Cannula 04/11 0015 61 93 04/11 0000 93 CPAP 4.0L 04/109 97.8 71 20 110/54 91 BIPAP 4.0L 04/10 2222 68 110/54 04/10 2208 98 94 04/10 2121 62 18 108/60 90 Nasal 2.0L Cannula 04/10 2051 62 108/50 Intake & Output 04/11 1600 04/11 0800 04/11 0000 Intake Total 800 960 Output Total 400 800 600 Balance 400 -800 360 Intake, Oral 800 960 Number 3 Bowel Movements Output, Urine 400 800 600 Physical Exam General Appearance: Alert, Oriented X3, Cooperative, No Acute Distress Skin: ridge discretion of left upper quadrant of the abdomen with deep tenderness HEENT: Atraumatic, PERRLA, EOMI Neck: Supple, No JVD Cardiovascular: Regular Rate, Normal S1, Normal S2 Lungs: mild basilar crackles Abdomen: Soft, mild deep tenderness Neurological: Normal Speech Extremities: No Clubbing, No Cyanosis, No Edema, Ecchymotic patch on left upper part of eller Vascular: Normal Pulses, Pulses Symmetrical Assessment/Plan Assessment: 61/M with PMH of [place] (on warfarin), HTN, HLD, CHF, T1DM, SANJUANITA, CAD with cardiac myopathy, renal failure (S/P nephrectomy with renal transplant now has CKD, PVD (s/p right popliteal anterior tibial bypass), chronic leg pain who presented to [facility] emergency department complaining of left abdominal hematoma. Problem list - Spontaneous left-sided abdominal hematoma secondary to high therapeutic INR Acute on chronic kidney failure renal failure (S/P nephrectomy with renal transplant now has CKD) Paroxysmal atrial fibrillation, now in normal sinus rhythm since 1yr does not require anticoagulation Anemia of chronic disease with iron deficiency Type 1 diabetes with HbA1c -9.0 Hypertension Hyperlipidemia CHF Obstructive sleep apnea on CPAP History of multiple rib fractures PVD (s/p right popliteal anterior tibial bypass), Plan - * According to the leaf size picker. Patient was in normal sinus rhythm since last one year. Doesn't require any anticoagulation. So we stopped the warfarin on . last PT/INR is 19.4/1.86 * His hemoglobin is 9.5, after 1 unit of blood transfusion. Will check CBC and BEP tomorrow. * If creatinine remains same or low than patient can go home. Please ask before sending patient home. * We will continue him on home doses of Levemir 16U s/c BID * As the patient was having frequent low blood pressure with decrease the dose of metoprolol 50 milligrams twice a day and increase the dose of amiodarone 200 milligrams OD. * Diet-renal diet * CODE STATUS-full code * DVT prophylaxis -ALPS Problem List: 1. Type 1 diabetes mellitus 2. Kidney transplant recipient 3. Anemia of chronic disease 4. Abdominal wall hematoma 5. SANJUANITA Pain Ratin Pain Location: Left Upper abdomen Pain Goal: Remain pain free Pain Plan: Mild, avoid NSAIDs Tomorrow's Labs & Rationales: cbc, bep DVT/Prophylaxis: mechanical, pharmacological PARVEZ MACKEY,ALEISHA 04/11/16 1013: Attending MD Review Statement Attending Statement Attending MD Statement: examined this patient, discuss w/resident/PA/FIRE ENGINEER, agreed w/resident/PA/FIRE ENGINEER, reviewed EMR data (avail), discussed with nursing, discussed with case mgmt Attending Assessment/Plan: Patient is doing okay. He worked with physical therapy. On 1 L of O2 he desaturated to the 80's so we bumped him up to 1.5 L. He got 1 unit of blood for acute blood loss anemia associated with this abdominal wall and rectus muscle hematoma and anemia from chronic kidney disease. His hemoglobin is 9. His creatinine has come up a little bit to 5.1 and I am concerned about that. He also appears to be having some small runs of nonsustained VT and will talk to Dr. Dunlap about questionably increasing the beta sharlene although his pressure is on the low side.
[2016-04-11 08:58] VITALS: BP 100/62
--- NOTE | 2016-04-11 10:20 | PN- Cardiology ---
Subjective Subjective: * No complaintes of chest discomfort, lightheadedness or palpitations. * Sinus rhythm with multiple short bursts of NSVT * Improved H/H post transfusion Objective Vital Signs and I&Os Vital Signs Date Time Temp Pulse Resp B/P Pulse O2 O2 Flow FiO2 Ox Delivery Rate 04/11 925 97.2 58 20 100/62 04/11 924 97.2 58 20 100/62 04/11 924 97.2 58 20 100/62 04/11 0858 97.2 58 20 100 97 CPAP 4.5L 04/11 0800 Nasal 2.0L Cannula 04/11 0015 61 93 04/11 0000 93 CPAP 4.0L 04/109 97.8 71 20 110/54 91 BIPAP 4.0L 04/10 2221 68 110/54 04/10 2208 98 94 04/101 62 18 108/60 90 Nasal 2.0L Cannula 04/10 2050 62 108/50 04/10 1600 92 Nasal 2.0L Cannula 04/10 1530 98.8 61 20 102/58 91 Nasal 2.0L Cannula Intake & Output 04/11 1600 04/11 0800 04/11 0000 04/10 1600 04/10 0800 04/10 0000 Intake Total 960 750 60 500 Output Total 800 600 650 250 300 Balance -800 360 100 -190 200 Intake, Blood 350 Product Intake, IV 10 Intake, Oral 960 400 50 500 Output, Urine 800 600 650 250 300 Physical Exam: General: WD/ obese male in NAD; alert and oriented x 3 Neck: no JVD, no carotid bruit Heart: RRR w/o murmur Lungs: clear bilaterally Extremities: no edema, venous stasis changes Assessment/Plan Assessment/Plan * Review of this patient's records does not show any evidence of atrial fibrillation for well over a year. This is likely due to his being on Amiodarone. He is noted to have runs of NSVT. This is something that has also been noted in the past. In the setting of a normal EF it is less likely to degenerate into a sustained VT. We will increase his Amiodarone dose to 200mg daily and continue to monitor. * This patient has not been in atrial fibrillation so we can leave him off chronic anticoagulation. * No significant chest pain or ischemic changes. * Continue Bumex 2mg BID Continue telemetry? Yes
--- NOTE | 2016-04-11 14:18 | Patient Discharge Instructions ---
Discharge Instructions General Discharge Information You were seen/treated for: Abdominal wall hematoma secondary to high PT/INR. Treated by giving FFP and holding the warfarin. Special Instructions: Please follow-up with PCP within a week of discharge Please follow-up transplant car dumper operator/ Dr Romel Garcia for further management. Diet Continue normal diet: No (heart healthy) Recommended Diet: Heart Healthy Activity Full Activity/No Limits: No (as tolerated) Acute Coronary Syndrome Inclusion Criteria At DC or during hospital stay patient has or had the following: ACS DIAGNOSIS No Discharge Core Measures Meds if any: Prescribed or Continued at Discharge Meds if any: NOT Prescribed or Continued at Discharge Congestive Heart Failure Inclusion Criteria At DC or during hospital stay patient has or had the following: CHF DIAGNOSIS No Discharge Core Measures Meds if any: Prescribed or Continued at Discharge Meds if any: NOT Prescribed or Continued at Discharge Cerebrovascular accident Inclusion Criteria At DC or during hospital stay patient has or had the following: CVA/TIA Diagnosis No Discharge Core Measures Meds if any: Prescribed or Continued at Discharge Meds if any: NOT Prescribed or Continued at Discharge Venous thromboembolism Inclusion Criteria VTE Diagnosis No VTE Type NONE VTE Confirmed by (Test) NONE Discharge Core Measures - Per Current guidelines, there needs to be overlap - treatment for the first 5 days of Warfarin therapy. - If discharged on Warfarin prior to 5 days of - overlap therapy, the patient will need to be - assessed for post discharge needs including - *Post discharge parental anticoagulation - *Warfarin and/or parental anticoagulation education - *Follow up date to check INR post discharge At least 5 days overlap therapy as Inpatient No Meds if any: Prescribed or Continued at Discharge Warfarin No Note: Overlap Therapy is Warfarin and Anticoagulant Meds if any: NOT Prescribed or Continued at Discharge
[2016-04-11] MEDS ORDERED: AMIODARONE HCL200 M1 PO (14:22)
[2016-04-11] MEDS ORDERED: BUMETANIDE2 M1 PO (14:22)
--- NOTE | 2016-04-11 14:56 | PN- Nephrology ---
Assessment/Plan Assessment: 1. CKD stage V - status post LRD transplant 2000 2. ULISES - improved, with persistent prerenal component 3. Abdominal wall hematoma in setting of supratherapeutic INR - improving - now off warfarin 4. Chest pain of uncertain etiology - resolved - negative troponins 5. Pulmonary vascular congestion - clinically improved 6. Anemia at least in part related to blood loss Suggestion: 1. Continue current diuretic and immunosuppressive regimen 2. Please repeat serum phosphorus level and if indeed elevated consider starting a phosphate binder 3. Mobilize as feasible 4. No dialysis need 5. Outpatient Renal follow-up with Dr. Finesse [place] Subjective Subjective: Patient again feeling well today with no complaints. His abdominal wall discomfort is much improved. He denies shortness of breath or chest pain. Renal function is relatively stable although creatinine did move up a tad to 5.1 from 4.9, perhaps related to IV bumetanide he received yesterday with his packed RBC transfusion. Recent serum phosphorus level high at 7.2, which has not been a problem for him in the recent past. Objective Vital Signs and I&Os Vital Signs Date Time Temp Pulse Resp B/P Pulse O2 O2 Flow FiO2 Ox Delivery Rate 04/11 925 97.2 58 20 100/62 04/11 0925 97.2 58 20 100/62 04/11 0925 97.2 58 20 100/62 04/11 0858 97.2 58 20 100 97 CPAP 4.5L 04/11 0800 Nasal 2.0L Cannula 04/11 0015 61 93 04/11 0000 93 CPAP 4.0L 04/109 97.8 71 20 110/54 91 BIPAP 4.0L 04/102 68 110/54 04/10 2208 98 94 04/101 62 18 108/60 90 Nasal 2.0L Cannula 04/10 2050 62 108/50 04/10 1600 92 Nasal 2.0L Cannula 04/10 1530 98.8 61 20 102/58 91 Nasal 2.0L Cannula Intake & Output 04/11 1600 04/11 0400 04/10 1600 04/10 0400 04/09 1600 04/09 0400 Intake Total 800 960 795 074 7628 200 Output Total 1200 600 900 300 500 200 Balance -400 360 -90 200 820 0 Intake, Blood 350 Product Intake, IV 10 Intake, Oral 800 960 116 621 4027 200 Number 3 0 Bowel Movements Output, Urine 1200 600 900 300 500 200 Physical Exam: General: Well-developed obese white male in no acute distress Skin: No rash or jaundice HEENT: Prosthetic left eye, no icterus Neck: Without masses or thyromegaly, no supraclavicular or cervical adenopathy Chest: Clear to P&A with some diminished breath sounds at bases Heart: Regular rate and rhythm without S3 or rub Abdomen: Soft with large ecchymosis in the left upper quadrant region overlying subcutaneous induration/mass which is much less tender Extremities: Without cyanosis or edema Neuro: No focal findings, no asterixis or myoclonus Current Medications: Current Medications Sig/Harjinder Start time Last Medication Dose Route Stop Time Status Admin Acetaminophen 650 MG Q6P PRN 04/07 2044 AC PO Acetaminophen 1,000 MG Q6P PRN 04/07 2044 AC IV Amiodarone HCl 200 MG DAILY 04/12 1000 AC PO Amiodarone HCl 100 MG DAILY 04/08 1000 DC 04/11 PO 0925 Amlodipine Besylate 10 MG DAILY 04/08 1000 AC 04/10 PO 0914 Aspirin 81 MG DAILY 04/10 1430 AC 04/11 PO 0927 Atorvastatin Calcium 20 MG 1700 04/07 1700 AC 04/10 PO 1707 Bisacodyl 5 MG DAILY PRN 04/10 1430 AC 04/10 PO 1912 Bumetanide 2 MG BID 04/08 1132 AC 04/11 PO 0927 Docusate Sodium 100 MG BID PRN 04/08 1200 AC 04/08 PO 1244 Fish Oil 1,050 MG DAILY 04/08 1000 AC 04/11 PO 0924 Hydromorphone HCl 4 MG Q8P PRN 04/07 1615 AC 04/10 PO 1428 Insulin Aspart 0 TIDAC 04/09 1700 AC 04/11 SC 1256 Insulin Detemir 16 UNITS BID 04/10 1000 AC 04/11 SC 0934 Metoprolol Tartrate 50 MG BID 04/10 2200 AC 04/10 PO 2222 Metoprolol Tartrate 100 MG BID 04/08 2200 DC 04/10 PO 0914 Multivitamins 1 TAB DAILY 04/08 1000 AC 04/11 PO 0924 Mycophenolate Mofetil 750 MG 0700,1900 04/07 1900 AC 04/11 PO 0642 Nitroglycerin 0.6 MG DAILY 04/08 1000 AC 04/11 TOP 0924 Omeprazole 40 MG DAILY AC 04/08 1148 AC 04/11 PO 0642 Ondansetron HCl 4 MG Q6P PRN 04/07 IV 2038 Polyethylene Glycol 17 GM DAILY 04/08 1317 AC 04/11 PO 0933 Senna 187 MG AT BEDTIME 04/080 AC 04/10 PO 2046 Tacrolimus 1.5 MG DAILY 04/08 1000 AC 04/11 PO 0924 Tacrolimus 1 MG AT BEDTIME 04/07 2199 AC 04/10 PO 2046 Results Pertinent Lab Results: Laboratory Tests 04/11 04/11 0650 0649 Chemistry Sodium (137 - 145 mmol/L) 138 Potassium (3.5 - 5.1 mmol/L) 4.2 Chloride (98 - 107 mmol/L) 102 Carbon Dioxide (22 - 30 mmol/L) 22 Anion Gap (5 - 16) 14 BUN (9 - 20 mg/dL) 129 *H Creatinine (0.7 - 1.2 mg/dL) 5.1 *H Estimated GFR (>60 ml/min) 12 L BUN/Creatinine Ratio (7 - 25 %) 25.3 H Magnesium (1.6 - 2.3 mg/dL) 2.0 Coagulation PT (9.4 - 12.5 SEC) 19.0 H INR (0.90 - 1.17) 1.82 H Hematology CBC w Diff NO MAN DIFF REQ WBC (4.8 - 10.8 /CUMM) 5.2 RBC (4.70 - 6.10 /CUMM) 3.35 L Hgb (14.0 - 18.0 G/DL) 9.4 L Hct (42 - 52 %) 27.7 L MCV (80.0 - 94.0 FL) 82.6 MCH (27.0 - 31.0 PG) 28.2 RDW (11.5 - 14.5 %) 15.1 H Plt Count (130 - 400 /CUMM) 154 MPV (7.4 - 10.4 FL) 9.4 Gran % (42.2 - 75.2 %) 65.5 Lymphocytes % (20.5 - 51.1 %) 15.2 L Monocytes % (1.7 - 9.3 %) 12.2 H Eosinophils % (0 - 5 %) 6.8 H Basophils % (0.0 - 2.0 %) 0.3 Absolute Granulocytes (1.4 - 6.5 /CUMM) 3.4 Absolute Lymphocytes (1.2 - 3.4 /CUMM) 0.8 L Absolute Monocytes (0.10 - 0.60 /CUMM) 0.6 Absolute Eosinophils (0.0 - 0.7 /CUMM) 0.4 Absolute Basophils (0.0 - 0.2 /CUMM) 0 PUBS MCHC (33.0 - 37.0 G/DL) 34.1 04/10 04/10 2110 0659 Chemistry Sodium (137 - 145 mmol/L) 136 L Potassium (3.5 - 5.1 mmol/L) 4.5 Chloride (98 - 107 mmol/L) 103 Carbon Dioxide (22 - 30 mmol/L) 20 L Anion Gap (5 - 16) 13 BUN (9 - 20 mg/dL) 129 *H Creatinine (0.7 - 1.2 mg/dL) 4.9 H Estimated GFR (>60 ml/min) 12 L BUN/Creatinine Ratio (7 - 25 %) 26.3 H Coagulation PT (9.4 - 12.5 SEC) 19.4 H INR (0.90 - 1.17) 1.86 H Hematology CBC w Diff NO MAN DIFF REQ NO MAN DIFF REQ WBC (4.8 - 10.8 /CUMM) 6.3 7.5 RBC (4.70 - 6.10 /CUMM) 3.32 L 2.76 L Hgb (14.0 - 18.0 G/DL) 9.1 L 7.5 L Hct (42 - 52 %) 27.5 L 22.6 L MCV (80.0 - 94.0 FL) 82.8 82.1 MCH (27.0 - 31.0 PG) 27.5 27.2 RDW (11.5 - 14.5 %) 15.3 H 14.7 H Plt Count (130 - 400 /CUMM) 165 166 MPV (7.4 - 10.4 FL) 9.6 9.6 Gran % (42.2 - 75.2 %) 65.6 72.5 Lymphocytes % (20.5 - 51.1 %) 15.7 L 12.3 L Monocytes % (1.7 - 9.3 %) 11.0 H 8.3 Eosinophils % (0 - 5 %) 6.7 H 6.5 H Basophils % (0.0 - 2.0 %) 1.0 0.4 Absolute Granulocytes (1.4 - 6.5 /CUMM) 4.1 5.5 Absolute Lymphocytes (1.2 - 3.4 /CUMM) 1.0 L 0.9 L Absolute Monocytes (0.10 - 0.60 /CUMM) 0.7 H 0.6 Absolute Eosinophils (0.0 - 0.7 /CUMM) 0.4 0.5 Absolute Basophils (0.0 - 0.2 /CUMM) 0.1 0 PUBS MCHC (33.0 - 37.0 G/DL) 33.2 33.2 04/09 0500 Chemistry Sodium (137 - 145 mmol/L) 142 Potassium (3.5 - 5.1 mmol/L) 3.9 Chloride (98 - 107 mmol/L) 104 Carbon Dioxide (22 - 30 mmol/L) 21 L Anion Gap (5 - 16) 17 H BUN (9 - 20 mg/dL) 126 *H Creatinine (0.7 - 1.2 mg/dL) 5.0 H Estimated GFR (>60 ml/min) 12 L BUN/Creatinine Ratio (7 - 25 %) 25.2 H Coagulation PT (9.4 - 12.5 SEC) 22.6 H INR (0.90 - 1.17) 2.17 H Hematology CBC w Diff NO MAN DIFF REQ WBC (4.8 - 10.8 /CUMM) 5.7 RBC (4.70 - 6.10 /CUMM) 3.01 L Hgb (14.0 - 18.0 G/DL) 8.1 L Hct (42 - 52 %) 24.7 L MCV (80.0 - 94.0 FL) 82.1 MCH (27.0 - 31.0 PG) 27.0 RDW (11.5 - 14.5 %) 15.3 H Plt Count (130 - 400 /CUMM) 141 MPV (7.4 - 10.4 FL) 9.8 Gran % (42.2 - 75.2 %) 61.4 Lymphocytes % (20.5 - 51.1 %) 18.7 L Monocytes % (1.7 - 9.3 %) 13.0 H Eosinophils % (0 - 5 %) 6.3 H Basophils % (0.0 - 2.0 %) 0.6 Absolute Granulocytes (1.4 - 6.5 /CUMM) 3.5 Absolute Lymphocytes (1.2 - 3.4 /CUMM) 1.1 L Absolute Monocytes (0.10 - 0.60 /CUMM) 0.7 H Absolute Eosinophils (0.0 - 0.7 /CUMM) 0.4 Absolute Basophils (0.0 - 0.2 /CUMM) 0 PUBS MCHC (33.0 - 37.0 G/DL) 32.9 L
[2016-04-11 15:01] VITALS: BP 106/60
--- NOTE | 2016-04-11 15:10 | PN- Cardiology ---
Subjective Subjective: * Armida is able to ambulate with a walker and is otherwise symptom free. Objective Vital Signs and I&Os Vital Signs Date Time Temp Pulse Resp B/P Pulse O2 O2 Flow FiO2 Ox Delivery Rate 04/11 1501 97.8 65 20 106/60 92 Nasal 4.0L Cannula 04/11 925 97.2 58 20 100/62 04/11 0925 97.2 58 20 100/62 04/11 0925 97.2 58 20 100/62 04/11 0858 97.2 58 20 100 97 CPAP 4.5L 04/11 0800 Nasal 2.0L Cannula 04/11 0015 61 93 04/11 0000 93 CPAP 4.0L 04/109 97.8 71 20 110/54 91 BIPAP 4.0L 04/102 68 110/54 04/10 2208 98 94 04/10 2121 62 18 108/60 90 Nasal 2.0L Cannula 04/10 2051 62 108/50 04/10 1600 92 Nasal 2.0L Cannula 04/10 1530 98.8 61 20 102/58 91 Nasal 2.0L Cannula Intake & Output 04/11 1600 04/11 0800 04/11 0000 04/10 1600 04/10 0800 04/10 0000 Intake Total 800 960 750 60 500 Output Total 400 800 600 650 250 300 Balance 400 -800 360 100 -190 200 Intake, Blood 350 Product Intake, IV 10 Intake, Oral 800 960 400 50 500 Number 3 Bowel Movements Output, Urine 400 800 600 650 250 300 Physical Exam: General: WD/ obese male in NAD; alert and oriented x 3 Neck: no JVD, no carotid bruit Heart: RRR w/o murmur Lungs: clear bilaterally Extremities: no edema, venous stasis changes Assessment/Plan Assessment/Plan * Review of this patient's records does not show any evidence of atrial fibrillation for well over a year. This is likely due to his being on Amiodarone. He is noted to have runs of NSVT. This is something that has also been noted in the past. In the setting of a normal EF it is less likely to degenerate into a sustained VT. We will increase his Amiodarone dose to 200mg daily and continue to monitor. * This patient has not been in atrial fibrillation so we can leave him off chronic anticoagulation. * No significant chest pain or ischemic changes. * Continue Bumex 2mg BID Continue telemetry? Yes
[2016-04-11 20:00] VITALS: BP 132/60
[2016-04-12 08:14] VITALS: BP 140/60
--- NOTE | 2016-04-12 09:34 | PN- Housestaff ---
IVY MACKEY,[facility] 04/12/16 0934: Subjective Follow-up For: Spontaneous abdominal hematoma secondary to supratherapeutic INR Chronic kidney disease on transplanted kidney Tele-Events Since Last Visit: Sinus rhythm Heart rate 62-74 No events Subjective: Patient was seen and examined this morning, no overnight events reported by the patient or the nurses. No acute distress, vital signs are stable. Patient reported some cough with clear sputum, denied shortness of breath, on 1 L oxygen saturation 94% Patient denied abdominal pain, nausea vomiting, diarrhea or constipation, urinary symptoms. Review of Systems Constitutional: Denies: see HPI. Objective Last 24 Hrs of Vital Signs/I&O Vital Signs Date Time Temp Pulse Resp B/P Pulse O2 O2 Flow FiO2 Ox Delivery Rate 04/12 1616 98.5 64 20 132/64 94 Nasal 1.0L Cannula 04/12 0814 97.5 70 20 140/60 94 Nasal Cannula 04/12 0811 63 132/60 04/12 0811 63 132/60 04/12 0811 63 132/60 04/12 0800 93 Nasal 1.5L Cannula 04/12 0000 95 CPAP 4.0L Intake & Output 04/12 1600 04/12 0800 04/12 0000 Intake Total 850 500 Output Total 950 1050 Balance -100 -550 Intake, Oral 850 500 Number 1 Bowel Movements Output, Urine 950 1050 Patient 86.381 kg Weight Physical Exam General Appearance: Alert, Oriented X3, Cooperative, No Acute Distress Cardiovascular: Regular Rate, Normal S1, Normal S2, No Murmurs Lungs: Clear to Auscultation, Normal Air Movement Abdomen: Normal Bowel Sounds, Soft, No Tenderness, destended Neurological: Normal Gait, Normal Speech, Strength at 5/5 X4 Ext, Normal Tone, Sensation Intact, Cranial Nerves 3-12 NL, Reflexes 2+ Extremities: No Clubbing, No Cyanosis, bilateral trace pedal edema Assessment/Plan Assessment: 61/M with PMH of A.fib (on warfarin), HTN, HLD, CHF, T1DM, SANJUANITA, CAD with cardiac myopathy, renal failure (S/P nephrectomy with renal transplant now has CKD, PVD (s/p right popliteal anterior tibial bypass), chronic leg pain who presented to [facility] emergency department complaining of left abdominal hematoma. Problem list - Spontaneous left-sided abdominal hematoma secondary to high therapeutic INR Acute on chronic kidney failure renal failure (S/P nephrectomy with renal transplant now has CKD) Paroxysmal atrial fibrillation, now in normal sinus rhythm since 1yr does not require anticoagulation Anemia of chronic disease with iron deficiency Type 1 diabetes with HbA1c -9.0 Hypertension Hyperlipidemia CHF Obstructive sleep apnea on CPAP History of multiple rib fractures PVD (s/p right popliteal anterior tibial bypass), Plan - * According to the retail service lead merchandiser. Patient was in normal sinus rhythm since last one year. Doesn't require any anticoagulation. So we stopped the warfarin on . last PT/INR is 19.4/1.86 * His hemoglobin is 9.5, after 1 unit of blood transfusion. * H&H 10.3/31.0 improved after blood transfusion of 1 unit * BUN/creatinine today is 121/4.8 improved from yesterday 129/5.1 * Patient has hyperkalemia potassium of 5.2 today, received kayexalate, repeat plasma potassium at 5 PM * According to nutrition consultation, adjust the diet for 2 g sodium and potassium restriction * Nephro multivitamin * DT evaluation tomorrow morning * Repeat pulse ox on ambulation without oxygen * Continue him on home doses of Levemir 16U s/c BID * As the patient was having frequent low blood pressure with decrease the dose of metoprolol 50 milligrams twice a day and increase the dose of amiodarone 200 milligrams OD. * Diet CCH3 with potassium 2 g and sodium 2 g * CODE STATUS-full code * DVT prophylaxis -ALPS Problem List: 1. Type 1 diabetes mellitus 2. Anemia of chronic disease 3. Abdominal wall hematoma 4. Hematoma 5. Supratherapeutic INR 6. Kidney transplant recipient Pain Ratin Pain Location: n/a Pain Goal: Pain 4 or less Pain Plan: see medication Tomorrow's Labs & Rationales: CBC, CMP, INR SARAI DE ANDA MD 04/12/16 0306: Attending MD Review Statement Attending Statement Attending MD Statement: examined this patient, discuss w/resident/PA/MANAGER TESTING, agreed w/resident/PA/MANAGER TESTING, reviewed EMR data (avail), discussed with nursing, amended to note Attending Assessment/Plan: The patient was seen and discussed with house staff. Agree with the plan of care as outlined. Will re-check labs and pulse ox in morning.
[2016-04-12 12:23] LABS: ABSOLUTE BASOPHIL COUNT 0 /CUMM (0.0-0.2); ABSOLUTE EOSINOPHIL COUNT 0.2 /CUMM (0.0-0.7); ABSOLUTE GRANULOCYTE CT 5.1 /CUMM (1.4-6.5); ABSOLUTE LYMPH COUNT 0.7 /CUMM (1.2-3.4); ABSOLUTE MONOCYTE COUNT 0.6 /CUMM (0.10-0.60); BASOPHIL % 0.3 % (0.0-2.0); EOSINOPHIL % 3.3 % (0-5); GRANULOCYTE % 76.4 % (42.2-75.2); MEAN CORPUSCULAR HGB 27.4 PG (27.0-31.0); MEAN CORPUSCULAR HGB CONC 33.2 G/DL (33.0-37.0); MEAN CORPUSCULAR VOLUME 82.3 FL (80.0-94.0); MEAN PLATELET VOLUME 9.1 FL (7.4-10.4); PLATELET COUNT 186 /CUMM (130-400); RBC DISTRIBUTION WIDTH 15.2 % (11.5-14.5); RED BLOOD CELL CT 3.77 /CUMM (4.70-6.10); WHITE BLOOD CELL COUNT 6.7 /CUMM (4.8-10.8)
[2016-04-12 12:29] LABS: PT 17.9 SEC (9.4-12.5)
[2016-04-12 16:16] VITALS: BP 132/64
--- NOTE | 2016-04-12 20:01 | NUR ---
NURSING NOTE PT'S IV IS EXPIERED AND DISPLACED. PT REFUSED NEW IV, HE ALSO HAS NO IV MEDICATIONS ON BOARD. I EXPLAINED THIS TO DR. HAYNES AND SHE SAID,"HE IS POSSIBLY GETTING D/C'D TOMORROW. WE DO NOT NEED AN IV IN HIM IF HE DOES NOT WANT ONE. "
[2016-04-12 23:14] VITALS: BP 120/70
[2016-04-13 08:07] VITALS: BP 118/64
[2016-04-13 08:34] LABS: ABSOLUTE BASOPHIL COUNT 0 /CUMM (0.0-0.2); ABSOLUTE EOSINOPHIL COUNT 0.2 /CUMM (0.0-0.7); ABSOLUTE GRANULOCYTE CT 4.6 /CUMM (1.4-6.5); ABSOLUTE LYMPH COUNT 0.8 /CUMM (1.2-3.4); ABSOLUTE MONOCYTE COUNT 0.7 /CUMM (0.10-0.60); BASOPHIL % 0.4 % (0.0-2.0); EOSINOPHIL % 3.5 % (0-5); GRANULOCYTE % 72.4 % (42.2-75.2); HEMATOCRIT 28.1 % (42-52); MEAN CORPUSCULAR HGB 27.5 PG (27.0-31.0); MEAN CORPUSCULAR HGB CONC 33.3 G/DL (33.0-37.0); MEAN CORPUSCULAR VOLUME 82.5 FL (80.0-94.0); MEAN PLATELET VOLUME 9.3 FL (7.4-10.4); PLATELET COUNT 170 /CUMM (130-400); RBC DISTRIBUTION WIDTH 15.5 % (11.5-14.5); RED BLOOD CELL CT 3.41 /CUMM (4.70-6.10); WHITE BLOOD CELL COUNT 6.4 /CUMM (4.8-10.8)
[2016-04-13 08:40] VITALS: BP 118/64
--- NOTE | 2016-04-13 10:00 | PN- Housestaff ---
GEMMA MACKEY,ADRIAN 04/13/16 1000: Subjective Follow-up For: Spontaneous abdominal hematoma secondary to supratherapeutic INR Chronic kidney disease on transplanted kidney Complaints: no complaints Tele-Events Since Last Visit: Heart rate in 60s 70s. No overnight events noted Subjective: Patient today is feeling fine. Was sitting at bedside in the chair. Complains of some abdominal discomfort which has been resolved prior to admission. He is currently on 1 L nasal cannula which is patient's baseline Review of Systems Constitutional: Reports: see HPI. Objective Last 24 Hrs of Vital Signs/I&O Vital Signs Date Time Temp Pulse Resp B/P Pulse O2 O2 Flow FiO2 Ox Delivery Rate 04/13 0840 118/64 04/13 0836 118/64 04/13 0836 118/64 04/13 0807 98.5 68 20 118/64 94 Nasal 1.0L Cannula 04/13 0800 93 Nasal 1.5L Cannula 04/13 0006 67 04/13 0000 CPAP 4.0L 04/12 2314 97.4 70 20 120/70 96 CPAP 04/12 2214 68 120/60 04/12 2142 56 99 04/12 1616 98.5 64 20 132/64 94 Nasal 1.0L Cannula Intake & Output 04/13 1600 04/13 0800 04/13 0000 Intake Total 480 480 400 Output Total 725 625 425 Balance -245 -145 -25 Intake, Oral 480 480 400 Output, Urine 725 625 425 Physical Exam General Appearance: Alert, Oriented X3, Cooperative, No Acute Distress Cardiovascular: Regular Rate, Normal S1, Normal S2, No Murmurs Lungs: B/L BREATH SOUNDS REDUCED Abdomen: TRNDERNESS PRESENT ON THE LEFT SIDE OF THE ABDOMEN Extremities: No Clubbing, No Cyanosis, No Edema Current Medications: Current Medications Sig/Harjinder Start time Last Medication Dose Route Stop Time Status Admin Acetaminophen 650 MG Q6P PRN 04/07 2044 DCD PO Acetaminophen 1,000 MG Q6P PRN 04/07 2044 DCD IV Amiodarone HCl 200 MG DAILY 04/12 1000 DCD 04/13 PO 0836 Amlodipine Besylate 10 MG DAILY 04/08 1000 DCD 04/13 PO 0840 Aspirin 81 MG DAILY 04/10 1430 DCD 04/13 PO 0836 Atorvastatin Calcium 20 MG 1700 04/07 1700 DCD 04/12 PO 1539 Bisacodyl 5 MG DAILY PRN 04/10 1430 DCD 04/10 PO 1912 Bumetanide 2 MG BID 04/08 1132 DCD 04/13 PO 0837 Docusate Sodium 100 MG BID PRN 04/08 1200 DCD 04/08 PO 1244 Fish Oil 1,050 MG DAILY 04/08 1000 DCD 04/13 PO 0836 Hydromorphone HCl 4 MG Q8P PRN 04/07 1615 DCD 04/10 PO 1428 Insulin Aspart 0 TIDAC 04/09 1700 DCD 04/13 SC 1208 Insulin Detemir 16 UNITS BID 04/10 1000 DCD 04/13 SC 0837 Metoprolol Tartrate 50 MG BID 04/10 2200 DCD 04/13 PO 0836 Multivitamins 1 TAB DAILY 04/13 1000 DCD 04/13 PO 0836 Mycophenolate Mofetil 750 MG 0700,1900 04/07 1900 DCD 04/13 PO 0636 Nitroglycerin 0.6 MG DAILY 04/08 1000 DCD 04/13 TOP 0836 Omeprazole 40 MG DAILY AC 04/08 1148 DCD 04/13 PO 0636 Ondansetron HCl 4 MG Q6P PRN 04/07 2015 DCD 04/07 IV 2038 Polyethylene Glycol 17 GM DAILY 04/08 1317 DCD 04/12 PO 0811 Senna 187 MG AT BEDTIME 04/08 2200 DCD 04/10 PO 2047 Sodium Polystyrene 60 ML ONCE ONE 04/12 2130 CAN Sulfonate PO 04/12 2131 Tacrolimus 1.5 MG DAILY 04/08 1000 DCD 04/13 PO 0836 Tacrolimus 1 MG AT BEDTIME 04/07 220 DCD 04/12 PO 2217 Last 24 Hrs of Lab/Gael Results Last 24 Hrs of Labs/Mics: Laboratory Tests 04/13/16 0715: Anion Gap 15, Estimated GFR 14 L, BUN/Creatinine Ratio 28.6 H, PT 17.0 H, INR 1.63 H, CBC w Diff NO MAN DIFF REQ, RBC 3.41 L, MCV 82.5, MCH 27.5, RDW 15.5 H, MPV 9.3, Gran % 72.4, Lymphocytes % 12.9 L, Monocytes % 10.8 H, Eosinophils % 3.5, Basophils % 0.4, Absolute Granulocytes 4.6, Absolute Lymphocytes 0.8 L, Absolute Monocytes 0.7 H, Absolute Eosinophils 0.2, Absolute Basophils 0, PUBS MCHC 33.3 04/12/16 1740: Plasma Potassium 5.1 H Assessment/Plan Assessment: 61/M with PMH of [place] (on warfarin), HTN, HLD, CHF, T1DM, SANJUAN[place], CAD with cardiac myopathy, renal failure (S/P nephrectomy with renal transplant now has CKD, PVD (s/p right popliteal anterior tibial bypass), chronic leg pain who presented to [facility] emergency department complaining of left abdominal hematoma secondary to subtherapeutic INR. Since INR is subtherapeutic today. H/H stable. Coumadin has been stopped as patient has been in normal sinus rhythm. Problem list - Spontaneous left-sided abdominal hematoma secondary to high therapeutic INR Acute on chronic kidney failure renal failure (S/P nephrectomy with renal transplant now has CKD) Paroxysmal atrial fibrillation, now in normal sinus rhythm since 1yr does not require anticoagulation Anemia of chronic disease with iron deficiency Type 1 diabetes with HbA1c -9.0 Hypertension Hyperlipidemia CHF Obstructive sleep apnea on CPAP History of multiple rib fractures PVD (s/p right popliteal anterior tibial bypass), Plan - * Cardiology recommendation Coumadin was stopped on 04/11/2016 as he has been in normal sinus rhythm. INR distrusting down Slowly. H&H has been stable after blood transfusion CHF currently on 2 mg Bumex which is his home dose. Charge at the same dose and follow-up with Dr. Dunlap as an outpatient. * BUN/creatinine trending down * According to nutrition consultation, adjust the diet for 2 g sodium and potassium restriction * Nephro multivitamin * Continue him on home doses of Levemir 16U s/c BID * He is restarted on 20 mg of amiodarone. And metoprolol increased given nonsustained ventricular tachycardia. Has been without any rhythm issues over the last 24 hours. * Diet CCH3 with potassium 2 g and sodium 2 g * CODE STATUS-full code * DVT prophylaxis -ALPS Problem List: 1. Abdominal wall hematoma 2. Supratherapeutic INR 3. Supratherapeutic INR 4. Tdwwg-ao-soqpeva kidney injury 5. Diabetes mellitus Pain Ratin Pain Location: Abdomen Pain Goal: Remain pain free Pain Plan: on dilaudid Tomorrow's Labs & Rationales: pt discharged today SARAI DE ANDA MD 04/13/16 1905: Attending MD Review Statement Attending Statement Attending MD Statement: examined this patient, discuss w/resident/PA/MANAGER SEMICONDUCTOR, agreed w/resident/PA/MANAGER SEMICONDUCTOR, reviewed EMR data (avail), discussed with nursing, discussed with case mgmt, amended to note Attending Assessment/Plan: The patient was seen and discussed with house staff. Bloodwork stable (H/H, chem 7, INR decreased). OK to discharge to home today.
--- NOTE | 2016-04-16 20:01 | Discharge Summary ---
Visit Information Visit Dates Admission Date: 04/07/16 Discharge Date: 04/13/16 Hospital Course Course Attending Physician: PARVEZ MACKEY,ALEISHA Alston Primary Care Physician: DILLAN MENDOZA MD Hospital Course: Patient is an 64 year-old male with significant past medical history of CKD stage V - status post LRD transplant 2000, coronary artery disease, atrial fibrillation on warfarin, hypertension, hyperlipidemia, CHF, type 1 diabetes, obstructive sleep apnea, PVD (s/p right popliteal anterior tibial bypass), chronic leg pain, recently hospitalized at [facility] after a fall leading to fractured ribs and flial chest, with complications (PEA arrest f/b CPR) who presented to [facility] emergency department complaining of left abdominal hematoma. Vital signs at the time of admission-temperature 97.6, pulse 66, respirations 20 , blood pressure 157/76, SPO2 94% with 1 liter of nasal cannula. Left abdominal wall hematoma- Patient presented with spontaneous left side abdominal wall hematoma, was hemodynamically stable and found to have a supratherapeutic INR>10, which was corrected with 6 units of FFP and vitamin K. CT abdomen showed subcutaneous swelling in the left anterior abdomen, with mild underlying intramuscular hematoma in the left rectus muscle. At the time of discharge, the size of hematoma was decreased and his INR was 1.63. Predischarge patient with instruction to follow-up with PCP within a week of discharge. Atrial fibrillation converted to normal sinus rhythm - According to Dr. Dunlap, patient does not have any evidence of atrial fibrillation for over a year, likely due to his being on Amiodarone. Thats why we can leave him off chronic anticoagulation. He was also persistently having hypotension with metoprolol, so we continued metoprolol at low doses and increase the dose of amiodarone to 200 mgs daily. Acute on chronic kidney failure - CKD stage V - status post LRD transplant 2000, on tacrolimus and mycophenolate. We continued all medication and advised him to follow-up with Finesse Jenkins as an outpatient. We continued patient on Bumex 2 mgs PO BID. 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 Anemia of chronic disease During the admission patient's hemoglobin went down to 7.5, from 11.9. We transfused 1 unit of blood. We also checked for the size of the hematoma by doing CT abdomen which showed decrease in the size from 2 centimeters to 1 centimeter. We were not able to do stool for occult blood as the sample was not there. After transfusion his hemoglobin went up to 9.4 and remained stable. Obstructive sleep apnea We continued patient on CPAP Allergies: Coded Allergies: NO KNOWN ALLERGIES (01/28/15) Disposition Summary Disposition Principal Diagnosis: Abdominal wall hematoma secondary to supratherapeutic INR -resolving ULISES on CKD Additional Diagnosis: CKD stage V - status post LRD transplant 2000 Acute on chronic kidney failure Paroxysmal atrial fibrillation, now in normal sinus rhythm since 1yr does not require anticoagulation Anemia of chronic disease with iron deficiency Type 1 diabetes with HbA1c -9.0 Hypertension Hyperlipidemia CHF Obstructive sleep apnea on CPAP History of multiple rib fractures PVD (s/p right popliteal anterior tibial bypass), Discharge Disposition: home or self care Discharge Instructions General Discharge Information Code Status: Full Code Patient's Diet: renal diet Patient's Activity: As tolerated Follow-Up Instructions/Appts: Please follow-up with PCP within a week of discharge Please follow-up transplant media liaison officer/ Dr Romel Garcia for further management. Please watch for the bleeding and change in size of the hamatoma. Please continue the medication as advised NO COUMADIN Medications at Discharge Discharge Medications: Stop taking the following medications: Warfarin Sodium (Warfarin Sodium) 5 MG TABLET ORAL 5 PM Qty = 90 Continue taking these medications: Mycophenolate Mofetil (CellCept) 250 MG CAPSULE 3 Capsule ORAL 0700,1900 Comments: Last Taken:02/13/15 Time:845AM Multivitamin (Multiple Vitamin) 1 TAB TAB 1 Tablet ORAL DAILY Comments: NOT GIVEN INPATIENT Insulin Lispro, Recombinant (Humalog Pen) 100 U/ML KIMI 0 Inject into fatty tissue SEE SLIDING SCALE Instructions: TIDAC Glucose level <80 Call MD 80-150 0 Units 151-200 5 units 201-300 10 units >300 15 units and call MD Adjust as recommended by your doctor Comments: Last Taken:02/13/15 Time:12PM OMEGA-3/DHA/EPA/FISH OIL ([place]-3 Fish Oil 1,000 MG Sftg) (Unknown Strength) CAPSULE 1 Tablet ORAL DAILY Comments: NOT GIVEN INPATIENT Metoprolol Tartrate (Lopressor) 100 MG TABLET 1 Tablet ORAL DAILY Comments: given 04/13/16 @ 0840 Atorvastatin Calcium (Lipitor) 20 MG TABLET 20 Milligram ORAL 5 PM Qty = 30 Comments: Last Taken:02/13/15 Time:5PM Insulin Glargine,Hum.rec.anlog (Lantus Solostar) 100 UNIT/ML (3 ML) INSULN.PEN 16 Unit Inject into fatty tissue Every night Comments: given Levemir 04/13/16 @ 0840 Nitroglycerin (Minitran) 1 EACH PATCH.TD24 0.6 Milligram PATCH See Instructions Instructions: 12 HOURS ON, 12 HOURS OFF Comments: given 04/13/16 @ 0840 Amlodipine Besylate (Amlodipine Besylate) 10 MG TABLET 1 Tablet ORAL DAILY Comments: given 04/13/16 @ 0840 Tacrolimus (Prograf) 0.5 MG CAPSULE 3 Capsule ORAL Every Morning Comments: given 04/13/16 @ 0840 Tacrolimus (Prograf) 1 MG CAPSULE 1 Capsule ORAL Every night Comments: given 04/12/16 @ 2220 Hydromorphone HCl (Hydromorphone HCl) 4 MG TABLET 1 Tablet ORAL THREE TIMES DAILY as needed for PAIN Qty = 90 Comments: given 04/10/16 @ 1430 Ergocalciferol (Vitamin D2) (Vitamin D2) 50,000 UNIT CAPSULE 1 Capsule ORAL As Directed Comments: PER PT TAKES ON THE AND OF EVERY MONTH not given in hospital The following medications have been changed: Old: Amiodarone HCl (Amiodarone HCl) 200 MG TABLET 0.5 Tablet ORAL DAILY Days = 30 New: Amiodarone HCl (Amiodarone HCl) 200 MG TABLET 1 Tablet ORAL DAILY Days = 30 Comments: given 04/13/16 @ 0840 Old: Bumetanide (Bumetanide) 2 MG TABLET 2 Tablet ORAL TWICE DAILY Qty = 60 New: Bumetanide (Bumetanide) 2 MG TABLET 1 Tablet ORAL TWICE DAILY Qty = 60 Comments: given 04/13/16 @ 0840 Copies To: PHYLLIS MACKEY,LAY Lopez; LALA MACKEY,CRISTINA GONZALEZ; JONI MACKEY PhD,KURTIS Melgoza; KELLY MACKEY,DILLAN Melgoza Attending MD Review Statement Documenting Attending: PARVEZ MACKEY,ALEISHA Alston
== END 2016-04-13 14:10 | DRG 683 ==
LOC: ENRESERVTM → ENRESERVDT → ERH 09:24 → ENPENDDIS 13:35 → ERHI 13:35 → CRI 13:35 → 1NO 04-09 13:45
PROVIDERS: Dermatology; Internal Medicine; Physician Assistant; Student in an Organized Health Care Education/Training Program; ADMIT Internal Medicine
PROC: 5A09357 Assistance with Respiratory Ventilation, Less than 24 Consecutive Hours, Continuous Positive Airway Pressure (ICD-10-PCS; 2016-04-08)
PROC: 30233K1 Transfusion of Nonautologous Frozen Plasma into Peripheral Vein, Percutaneous Approach (ICD-10-PCS; principal; 2016-04-10)
DX: N17.9 Acute kidney failure, unspecified (principal); I13.11 Hypertensive heart and chronic kidney disease without heart failure, with stage 5 chronic kidney disease, or end stage renal disease; Z94.0 Kidney transplant status; M79.81 Nontraumatic hematoma of soft tissue; I48.2 Chronic atrial fibrillation; N18.5 Chronic kidney disease, stage 5; E10.9 Type 1 diabetes mellitus without complications; Z79.01 Long term (current) use of anticoagulants; T45.515A Adverse effect of anticoagulants, initial encounter; E78.5 Hyperlipidemia, unspecified; I25.10 Atherosclerotic heart disease of native coronary artery without angina pectoris; Y92.009 Unspecified place in unspecified non-institutional (private) residence as the place of occurrence of the external cause
CPT/HCPCS: 1NP; CCU; 36415; 74176; 81001; 82436; 86920; 93005; 93010; 93306; 96372; 96374; 96375; 96376; 97110-GO; 97116-GO; 97161-GP; 97530-GO; 99291; J0131; J2405; J2550; J3250; J3490; J7507; J7508; J7517; P9016; P9017

== ENCOUNTER 2017-07-20 05:39 | Emergency (ER) | payer OTHER, MEDICARE ==
[~2017-07-20] VITALS: Ht 170.2 cm; Wt 83.0 kg
[~2017-07-20 05:39] MED LIST changes: +ASPIRIN EC81 M1 PO; +BUMETANIDE2 M1 PO; -HUMALOG PEN100 U/ML SC; +HUMALOG100 UNIT/2 SC; +LASIX40 M1 PO; +LASIX80 M1 PO; +LISINOPRIL2.5 M1 PO; +SENSIPAR; +SENSIPAR60 M1 PO; +WARFARIN SODIUM5 M1 PO
[2017-07-20 05:45] VITALS: BP 129/60
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
[2017-07-20] MEDS ORDERED: CYCLOBENZAPRINE10 M1 PO (05:56)
[2017-07-20] MEDS ORDERED: IBUPROFEN600 M1 PO (05:56)
== END 2017-07-20 06:20 ==
LOC: ERH 05:39
DX: M79.1 Myalgia (principal); M25.512 Pain in left shoulder
CPT/HCPCS: 93005; 93010; 96372; J1885

== ENCOUNTER 2017-08-04 21:00 | Inpatient (IN) | payer OTHER, MEDICARE ==
[~2017-08-04] VITALS: Ht 170.2 cm; Wt 88.5 kg
[~2017-08-04 21:00] MED LIST changes: +CYCLOBENZAPRINE10 M1 PO; +IBUPROFEN600 M1 PO; +LIPITOR20 M2 PO
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
[2017-08-04 21:43] LABS: ABSOLUTE BASOPHIL COUNT 0 /CUMM (0.0-0.2); ABSOLUTE EOSINOPHIL COUNT 0.5 /CUMM (0.0-0.7); ABSOLUTE GRANULOCYTE CT 4.9 /CUMM (1.4-6.5); ABSOLUTE LYMPH COUNT 1.1 /CUMM (1.2-3.4); ABSOLUTE MONOCYTE COUNT 0.8 /CUMM (0.10-0.60); MEAN CORPUSCULAR HGB 29.9 PG (27.0-31.0)
[2017-08-04 21:54] LABS: BASOPHIL % 0.3 % (0.0-2.0); EOSINOPHIL % 6.6 % (0-5); GRANULOCYTE % 66.8 % (42.2-75.2); HEMATOCRIT 31.6 % (42-52); MEAN CORPUSCULAR HGB CONC 34.3 G/DL (33.0-37.0); MEAN PLATELET VOLUME 8.3 FL (7.4-10.4); PLATELET COUNT 154 /CUMM (130-400); RBC DISTRIBUTION WIDTH 14.6 % (11.5-14.5); RED BLOOD CELL CT 3.63 /CUMM (4.70-6.10); WHITE BLOOD CELL COUNT 7.4 /CUMM (4.8-10.8)
--- NOTE | 2017-08-04 22:00 | RADIOLOGY REPORT ---
EXAMINATION: XR PORTABLE CHEST CLINICAL INFORMATION: Chest pain COMPARISON: Prior chest March 2017 TECHNIQUE: Portable frontal view of the chest was obtained. FINDINGS: There is prominence of central pulmonary vasculature as seen previously there is mild increased interstitial markings bilaterally. The cardiac silhouette is within the upper limits of normal. There are no pleural effusions. IMPRESSION: Findings suspicious for recurrent mild edema
--- NOTE | 2017-08-05 00:38 | CT SCAN REPORT ---
EXAMINATION: CT ANGIOGRAM CHEST, ABDOMEN AND PELVIS CLINICAL INFORMATION: Severe chest pain. Epigastric pain. COMPARISON: CT chest December 24, 2016. CT abdomen pelvis December 25, 2016. Chest x-ray March 31, 2017. Chest x-ray August 04, 2017 TECHNIQUE: Noncontrast axial images obtained through the chest. Multiple axial images were obtained through the chest abdomen and pelvis following the administration of 95 mL of Optiray 320 intravenous contrast. Coronal and sagittal reformatted images performed at CT scanner. No 3-D imaging. By history patient is to have dialysis 08/05/2017. DLP: 2090.09 mGy-cm. FINDINGS: VASCULAR: 1. Pulmonary arteries: No evidence of pulmonary embolism. The main pulmonary artery measures 3.6 cm transverse. The right main pulmonary artery measures 2.2 cm. The left main pulmonary artery measures 2.2 cm. 2.CARDIAC: No evidence of right ventricular strain. There is calcifications of the mitral valve annulus. There are coronary artery calcifications. 3. Aorta: No aneurysm or dissection of aorta. There is extensive vascular wall calcifications of the wall of aorta through the chest and abdomen. There is atherosclerotic vascular wall calcification of the origin of the great vessels. 4. Mesenteric vessels: Atherosclerotic vascular wall calcification of splenic artery, hepatic artery and SMA and MICKI. These vessels do opacify. 5. Renal arteries: Patient is atrophic kidneys. There is atherosclerotic vascular wall calcification at the origin of the left renal artery. Both renal arteries are threadlike but do show enhancement. Patient has a left pelvic transplant kidney. There is atherosclerotic vascular wall calcifications of the left renal artery but no stenosis or aneurysm. 6. Pelvic vessels: Runoff is seen via the iliac vessels and the femoral arteries. There is atherosclerotic vascular wall calcification is vessels without aneurysm or significant stenosis. CT CHEST: MEDIASTINUM: No mediastinal mass. No significant lymphadenopathy. There is no pericardial effusion. LUNGS: There is streaky airspace opacities at both lung bases of subsegmental atelectasis. No focal dense consolidation. FLUID: There is no pericardial effusion. There is no pleural effusion. AXILLA: No significant lymphadenopathy. CT SCAN ABDOMEN PELVIS: LIVER, GALLBLADDER, AND BILIARY TREE: The liver is normal in size, shape, and attenuation. No focal hepatic lesion or biliary ductal dilatation is present. Status post cholecystectomy. The extra hepatic CBD is dilated to a diameter of about 8 mm. No stones seen in the bile ducts. PANCREAS: The pancreas is atrophic. There are small cystic areas at the body of the pancreas without inflammation. SPLEEN: Spleen is enlarged measuring 15.4 cm superior inferior. ADRENAL GLANDS: Right adrenal gland is nodular with multiple coarse calcifications but no enlargement. This is stable in appearance since prior studies. Left adrenal gland is normal. KIDNEYS AND URETERS: The cahto kidneys are atrophic with thinning of cortex. No hydronephrosis. Transplant kidney in the left renal fossa demonstrates enhancement of the cortex with normal cortical thickness and no hydronephrosis. BLADDER: Unremarkable. GASTROINTESTINAL TRACT: Moderate to large-volume of stool throughout the colon. No bowel obstruction. No bowel wall thickening or edema. Surgical suture line seen in the right colon intact. The appendix is not present. The small bowel loops are unremarkable. ABDOMINAL WALL: No significant hernia is appreciated. LYMPH NODES: Normal. PELVIC VISCERA: Unremarkable. OSSEOUS STRUCTURES: The bones are osteoporotic sclerotic consistent with renal osteodystrophy. There is multilevel degenerative disc height narrowing and endplate spurring and facet joint arthrosis. There is compression deformity of the central superior endplate of L4 which is chronic unchanged since prior studies. There are multiple healed right-sided rib fractures but no acute fracture of the chest abdomen or pelvis. IMPRESSION: 1. Vascular. There is extensive atherosclerotic vascular calcifications throughout the chest abdomen pelvis but there is no aneurysm or dissection of aorta or major branch vessels of aorta. No evidence of pulmonary embolism. 2..CT CHEST: No acute change of chest. 3. CT abdomen pelvis. No acute abnormality of the abdomen and pelvis. The cahto kidneys are atrophic. There is a transplant kidney in the left renal pelvis which shows normal enhancement. There is mild splenomegaly. Status post cholecystectomy.
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
[2017-08-05] MEDS ORDERED: OMEGA 3-6-9 11200 MG PO (03:09)
[2017-08-05] MEDS ORDERED: MIRALAX119 GM PO (03:33)
[2017-08-05] MEDS ORDERED: SODIUM BICARBO650 M1 PO (03:33)
[2017-08-05] MEDS ORDERED: PROGRAF0.5 MG PO (03:36)
--- NOTE | 2017-08-05 04:08 | Admission Certification ---
Admission Certification Certification Statement - As attending physician, I certify that at the time of - admission, based on clinical presentation, severity of - symptoms, need for further diagnostic testing and - therapeutic interventions, and risk of adverse outcomes - without in-hospital treatment, in my clinical assessment, - this patient requires an acute hospital stay for a minimum - of two nights or longer. I have also considered psychsocial - factors such as support system, advanced age, financial - issues, cognitive issues, and failed out-patient treatments, - past re-admission history, safety of patient, and lack of - compliance as applicable. Specific rationale supporting this admission is: Chest pain rule out ACS
[2017-08-05 08:17] VITALS: BP 160/72
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
--- NOTE | 2017-08-05 12:02 | Discharge Summary ---
Visit Information Visit Dates Admission Date: 08/05/17 Discharge Date: 08/05/2017 Hospital Course Course Attending Physician: Dr Marie Primary Care Physician: Rena MACKEY,[place] [facility] Course: Mr Parekh is a 62-year-old male with past medical history of diabetes mellitus complicated by retinopathy, end-stage renal disease status post renal transplantation (2000) now on hemodialysis (M/W/F), paroxysmal atrial fibrillation, coronary artery disease with cardiomyopathy, hypertension, NSTEMI, obstructive sleep apnea, bilateral lower extremity skin grafts, heart failure with preserved ejection fraction,PVD s/p popliteal anterior bypass s/p skin graft,ild 2/ to amiodarone,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 He took nitroglycerin initially without much relief, however upon subsequent dosages his chest pain was relieved. On presentation in the emergency department his temperature was 98.4, pulse 100, respiratory rate of 24, blood pressure of 174/74 mmHg, he was 94% saturating on 1 L of nasal cannula. Physical exam-odell he was alert and oriented 3, cooperative, not in any acute distress. Neck was supple, there was no jugular venous distention, no lymphadenopathy, moist mucosa, no focal neurological deficit. Right lower extremity was chronically enlarged compared to left lower extremity with mild redness but no evidence of cellulitis. CVS S1-S2 present, no adventitious heart sounds appreciated. RS clear to auscultate bilaterally. Abdomen soft, nontender, bowel sounds present. CTA chest along with abdominal and pelvis showed extensive atherosclerotic vascular calcifications throughout the chest, abdomen and pelvis, no aneurysm or dissection of aorta or any major vessels was found along with no evidence of pulmonary embolic or any other acute changes of chest. CT abdominal and pelvis found a tunica-biloxi kidneys to be atrophic and transplant kidney in the left renal pelvis with normal enhancement, mild splenomegaly, status post cholecystectomy. He was admitted to telemetry floor for chief complaint of chest pain in order to rule out acute coronary syndrome. He was monitored on telemetry continuously with serial troponins and EKG. Cardiology was consulted. Aspirin, statin, beta sharlene and all his other home medications were continued. He was started on Levemir 20 units twice a day off long-acting insulin along with sliding scale NovoLog. Nephrology was consulted in order to continue his dialysis and parking ramp attendant was consulted due to hyperglycemia. Problem list along with assessment and plan. Problem #1 Acute coronary syndrome Mr. parekh's last stress test showed a fixed inferior defect with ejection fraction of 43%. His last echocardiogram showed a better EF of 60% with mild left ventricular hypertrophy, mildly enlarged left atrium, mild MR, TR, AI and PI. His troponins were trended and were found to be 0.04 followed by second troponin of 0.27 and 3rd troponin of 28.[address]-T wave changes. He was started on IV heparin and since the morning of admission after the initial nitroglycerin he has been chest pain-free. We are holding the cyclobenzaprine and lisinopril and plan is made to transfer him for cardiac catheterization. His last meal was 11 AM on 08/05/2017. He was given morning dose of medications along with aspirin. Problem #2 end-stage renal disease on dialysis Prior to transfer for cardiac catheterization, patient did receive hemodialysis along with an attempt to ultrafilter him down to his target weight of 83.5 KG over 3.25 hours as tolerated, other than that his outpatient medications were continued as before. Problem #3 management of diabetes mellitus. Endocrinology was consulted, at home he was on Lantus 20 units twice a day along with Humalog coverage. Overnight he received 10 units of regular insulin and total 5 units of NovoLog, his repeated and a stick in the morning was 163 however around 10 AM hisfingerstick was less than 50, and dextrose was given and repeat FSG was 80 at lunchtime. He was started on Levemir 16 units twice a day along with NovoLog sliding scale with a bedtime coverage prior to discharge. With prior positive stress test, along with presentation of chest pain that was relieved with nitroglycerin and elevated troponins along with major risk factors a decision was made to transfer the patient for further coronary intervention as per cardiology. Complications: concern for Type I NSTEMI requiring transfer to higher center. Allergies: Coded Allergies: NO KNOWN ALLERGIES (01/28/15) Significant Procedures: Laboratory Tests 08/05/17 1340: Sodium Pending, Potassium Pending, Chloride Pending, Carbon Dioxide Pending, Anion Gap Pending, BUN Pending, Creatinine Pending, Glucose Pending, Calcium Pending, Phosphorus Pending, Magnesium Pending, Total Bilirubin Pending, AST Pending, ALT Pending, Albumin Pending, CBC w Diff Pending, WBC Pending, RBC Pending, Hgb Pending, Hct Pending, MCV Pending, MCH Pending, MCHC Pending, RDW Pending, Plt Count Pending, MPV Pending 08/05/17 1034: Troponin I 28.40 *H 08/05/17 0607: Urinalysis MOD H, Urine Color STRAW, Urine Clarity HAZY H, Urine pH 7.5, Ur Specific Sherwood 1.015, Urine Protein 100 H, Urine Ketones TRACE H, Urine Nitrite NEG, Urine Bilirubin NEG, Urine Urobilinogen 0.2, Ur Leukocyte Esterase NEG, Ur Microscopic SEDIMENT EXAMINED, Urine RBC 3-5, Urine WBC 5-10 H, Ur Epithelial Cells FEW, Urine Bacteria RARE H, Urine Mucus FEW, Urine Hemoglobin SMALL H, Urine Glucose >=1000 H 08/05/17 0205: Troponin I 0.27 *H, Acetone Level POSITIVE AT 1:4 DIL 08/05/17 0145: pH 7.41, pCO2 36, pO2 58 L, HCO3 22, ABG O2 Sat (Measured) 89.0 L, P-50 (Temp Corrected) Y, Carboxyhemoglobin 0.4 L, O2 Concentration % 2 LPM, Temperature 97.5, O2 Delivery Method N/C, Phlebotomy Draw Site RIGHT RADIAL 08/05/17 014: Acetone Level Cancelled 08/04/172127: Anion Gap 20 H, Estimated GFR 6 L, BUN/Creatinine Ratio 8.1, Glucose 499 H, Hemoglobin A1c 8.5 H, Serum Osmolality 332 H, Calcium 8.1 L, Total Bilirubin 0.5, AST 21, ALT 21, Alkaline Phosphatase 220 H, Troponin I 0.04, Total Protein 6.8, Albumin 3.6, Globulin 3.2, Albumin/Globulin Ratio 1.1, Amylase 37, Lipase 124, CBC w Diff NO MAN DIFF REQ, RBC 3.63 L, MCV 87.0, MCH 29.9, MCHC 34.3, RDW 14.6 H, MPV 8.3, Gran % 66.8, Lymphocytes % 15.1 L, Monocytes % 11.2 H, Eosinophils % 6.6 H, Basophils % 0.3, Absolute Granulocytes 4.9, Absolute Lymphocytes 1.1 L, Absolute Monocytes 0.8 H, Absolute Eosinophils 0.5, Absolute Basophils 0, Salicylates < 1.0 Vital Signs Result Date Time O2 Delivery Nasal Cannula 08/05 1150 O2 Flow Rate 2.0L 08/05 1150 Pulse Ox 97 08/05 1149 B/P 158/70 08/05 1149 Temp 98.0 08/05 1149 Pulse 90 08/05 1149 Resp 20 08/05 1149 Intake & Output 08/05 0000 08/04 1600 08/04 0800 Intake Total Output Total Balance Patient 86.183 kg Weight Weight Reported by Patient Measurement Method Pertinent Lab Results: SERVICE DATE: 08/04/17 EXAM TYPE: CAT - CT ABD & PELVIS ANGIOGRAM; CTA CHEST-AORTIC DISSECTION EXAMINATION: CT ANGIOGRAM CHEST, ABDOMEN AND PELVIS CLINICAL INFORMATION: Severe chest pain. Epigastric pain. COMPARISON: CT chest December 24, 2016. CT abdomen pelvis December 25, 2016. Chest x-ray March 31, 2017. Chest x-ray August 04, 2017 TECHNIQUE: Noncontrast axial images obtained through the chest. Multiple axial images were obtained through the chest abdomen and pelvis following the administration of 95 mL of Optiray 320 intravenous contrast. Coronal and sagittal reformatted images performed at CT scanner. No 3-D imaging. By history patient is to have dialysis 08/05/2017. DLP: 2090.09 mGy-cm. FINDINGS: VASCULAR: 1. Pulmonary arteries: No evidence of pulmonary embolism. The main pulmonary artery measures 3.6 cm transverse. The right main pulmonary artery measures 2.2 cm. The left main pulmonary artery measures 2.2 cm. 2.CARDIAC: No evidence of right ventricular strain. There is calcifications of the mitral valve annulus. There are coronary artery calcifications. 3. Aorta: No aneurysm or dissection of aorta. There is extensive vascular wall calcifications of the wall of aorta through the chest and abdomen. There is atherosclerotic vascular wall calcification of the origin of the great vessels. 4. Mesenteric vessels: Atherosclerotic vascular wall calcification of splenic artery, hepatic artery and SMA and MICKI. These vessels do opacify. 5. Renal arteries: Patient is atrophic kidneys. There is atherosclerotic vascular wall calcification at the origin of the left renal artery. Both renal arteries are threadlike but do show enhancement. Patient has a left pelvic transplant kidney. There is atherosclerotic vascular wall calcifications of the left renal artery but no stenosis or aneurysm. 6. Pelvic vessels: Runoff is seen via the iliac vessels and the femoral arteries. There is atherosclerotic vascular wall calcification is vessels without aneurysm or significant stenosis. CT CHEST: MEDIASTINUM: No mediastinal mass. No significant lymphadenopathy. There is no pericardial effusion. LUNGS: There is streaky airspace opacities at both lung bases of subsegmental atelectasis. No focal dense consolidation. FLUID: There is no pericardial effusion. There is no pleural effusion. AXILLA: No significant lymphadenopathy. CT SCAN ABDOMEN PELVIS: LIVER, GALLBLADDER, AND BILIARY TREE: The liver is normal in size, shape, and attenuation. No focal hepatic lesion or biliary ductal dilatation is present. Status post cholecystectomy. The extra hepatic CBD is dilated to a diameter of about 8 mm. No stones seen in the bile ducts. PANCREAS: The pancreas is atrophic. There are small cystic areas at the body of the pancreas without inflammation. SPLEEN: Spleen is enlarged measuring 15.4 cm superior inferior. ADRENAL GLANDS: Right adrenal gland is nodular with multiple coarse calcifications but no enlargement. This is stable in appearance since prior studies. Left adrenal gland is normal. KIDNEYS AND URETERS: The tunica-biloxi kidneys are atrophic with thinning of cortex. No hydronephrosis. Transplant kidney in the left renal fossa demonstrates enhancement of the cortex with normal cortical thickness and no hydronephrosis. BLADDER: Unremarkable. GASTROINTESTINAL TRACT: Moderate to large-volume of stool throughout the colon. No bowel obstruction. No bowel wall thickening or edema. Surgical suture line seen in the right colon intact. The appendix is not present. The small bowel loops are unremarkable. ABDOMINAL WALL: No significant hernia is appreciated. LYMPH NODES: Normal. PELVIC VISCERA: Unremarkable. OSSEOUS STRUCTURES: The bones are osteoporotic sclerotic consistent with renal osteodystrophy. There is multilevel degenerative disc height narrowing and endplate spurring and facet joint arthrosis. There is compression deformity of the central superior endplate of L4 which is chronic unchanged since prior studies. There are multiple healed right-sided rib fractures but no acute fracture of the chest abdomen or pelvis. IMPRESSION: 1. Vascular. There is extensive atherosclerotic vascular calcifications throughout the chest abdomen pelvis but there is no aneurysm or dissection of aorta or major branch vessels of aorta. No evidence of pulmonary embolism. 2..CT CHEST: No acute change of chest. 3. CT abdomen pelvis. No acute abnormality of the abdomen and pelvis. The tunica-biloxi kidneys are atrophic. There is a transplant kidney in the left renal pelvis which shows normal enhancement. There is mild splenomegaly. Status post cholecystectomy. DICTATED BY: Bartolome Draper MD DATE/TIME DICTATED:08/05/1717 PRESIDENT EDUCATIONAL INSTITUTION:[facility] DATE/TIME TRANSCRIBED:08/05/1717 CONFIDENTIAL, DO NOT COPY WITHOUT APPROPRIATE AUTHORIZATION. <Electronically signed in Other Vendor System> SIGNED BY: Bartolome Draper MD 08/05/17 0038 SERVICE DATE: 08/04/17 EXAM TYPE: CAT - CT ABD & PELVIS ANGIOGRAM; CTA CHEST-AORTIC DISSECTION EXAMINATION: CT ANGIOGRAM CHEST, ABDOMEN AND PELVIS CLINICAL INFORMATION: Severe chest pain. Epigastric pain. COMPARISON: CT chest December 24, 2016. CT abdomen pelvis December 25, 2016. Chest x-ray March 31, 2017. Chest x-ray August 04, 2017 TECHNIQUE: Noncontrast axial images obtained through the chest. Multiple axial images were obtained through the chest abdomen and pelvis following the administration of 95 mL of Optiray 320 intravenous contrast. Coronal and sagittal reformatted images performed at CT scanner. No 3-D imaging. By history patient is to have dialysis 08/05/2017. DLP: 2090.09 mGy-cm. FINDINGS: VASCULAR: 1. Pulmonary arteries: No evidence of pulmonary embolism. The main pulmonary artery measures 3.6 cm transverse. The right main pulmonary artery measures 2.2 cm. The left main pulmonary artery measures 2.2 cm. 2.CARDIAC: No evidence of right ventricular strain. There is calcifications of the mitral valve annulus. There are coronary artery calcifications. 3. Aorta: No aneurysm or dissection of aorta. There is extensive vascular wall calcifications of the wall of aorta through the chest and abdomen. There is atherosclerotic vascular wall calcification of the origin of the great vessels. 4. Mesenteric vessels: Atherosclerotic vascular wall calcification of splenic artery, hepatic artery and SMA and MICKI. These vessels do opacify. 5. Renal arteries: Patient is atrophic kidneys. There is atherosclerotic vascular wall calcification at the origin of the left renal artery. Both renal arteries are threadlike but do show enhancement. Patient has a left pelvic transplant kidney. There is atherosclerotic vascular wall calcifications of the left renal artery but no stenosis or aneurysm. 6. Pelvic vessels: Runoff is seen via the iliac vessels and the femoral arteries. There is atherosclerotic vascular wall calcification is vessels without aneurysm or significant stenosis. CT CHEST: MEDIASTINUM: No mediastinal mass. No significant lymphadenopathy. There is no pericardial effusion. LUNGS: There is streaky airspace opacities at both lung bases of subsegmental atelectasis. No focal dense consolidation. FLUID: There is no pericardial effusion. There is no pleural effusion. AXILLA: No significant lymphadenopathy. CT SCAN ABDOMEN PELVIS: LIVER, GALLBLADDER, AND BILIARY TREE: The liver is normal in size, shape, and attenuation. No focal hepatic lesion or biliary ductal dilatation is present. Status post cholecystectomy. The extra hepatic CBD is dilated to a diameter of about 8 mm. No stones seen in the bile ducts. PANCREAS: The pancreas is atrophic. There are small cystic areas at the body of the pancreas without inflammation. SPLEEN: Spleen is enlarged measuring 15.4 cm superior inferior. ADRENAL GLANDS: Right adrenal gland is nodular with multiple coarse calcifications but no enlargement. This is stable in appearance since prior studies. Left adrenal gland is normal. KIDNEYS AND URETERS: The tunica-biloxi kidneys are atrophic with thinning of cortex. No hydronephrosis. Transplant kidney in the left renal fossa demonstrates enhancement of the cortex with normal cortical thickness and no hydronephrosis. BLADDER: Unremarkable. GASTROINTESTINAL TRACT: Moderate to large-volume of stool throughout the colon. No bowel obstruction. No bowel wall thickening or edema. Surgical suture line seen in the right colon intact. The appendix is not present. The small bowel loops are unremarkable. ABDOMINAL WALL: No significant hernia is appreciated. LYMPH NODES: Normal. PELVIC VISCERA: Unremarkable. OSSEOUS STRUCTURES: The bones are osteoporotic sclerotic consistent with renal osteodystrophy. There is multilevel degenerative disc height narrowing and endplate spurring and facet joint arthrosis. There is compression deformity of the central superior endplate of L4 which is chronic unchanged since prior studies. There are multiple healed right-sided rib fractures but no acute fracture of the chest abdomen or pelvis. IMPRESSION: 1. Vascular. There is extensive atherosclerotic vascular calcifications throughout the chest abdomen pelvis but there is no aneurysm or dissection of aorta or major branch vessels of aorta. No evidence of pulmonary embolism. 2..CT CHEST: No acute change of chest. 3. CT abdomen pelvis. No acute abnormality of the abdomen and pelvis. The tunica-biloxi kidneys are atrophic. There is a transplant kidney in the left renal pelvis which shows normal enhancement. There is mild splenomegaly. Status post cholecystectomy. DICTATED BY: Bartolome Draper MD DATE/TIME DICTATED:08/05/1717 PRESIDENT EDUCATIONAL INSTITUTION:[facility] DATE/TIME TRANSCRIBED:08/05/1717 CONFIDENTIAL, DO NOT COPY WITHOUT APPROPRIATE AUTHORIZATION. <Electronically signed in Other Vendor System> SIGNED BY: Bartolome Draper MD 08/05/17 0038 SERVICE DATE: 08/04/17 EXAM TYPE: RAD - XRY-PORTABLE CHEST XRAY EXAMINATION: XR PORTABLE CHEST CLINICAL INFORMATION: Chest pain COMPARISON: Prior chest March 2017 TECHNIQUE: Portable frontal view of the chest was obtained. FINDINGS: There is prominence of central pulmonary vasculature as seen previously there is mild increased interstitial markings bilaterally. The cardiac silhouette is within the upper limits of normal. There are no pleural effusions. IMPRESSION: Findings suspicious for recurrent mild edema DICTATED BY: Hermilo Parra MD DATE/TIME DICTATED:08/04/172154 PRESIDENT EDUCATIONAL INSTITUTION:[facility] DATE/TIME TRANSCRIBED:08/04/172154 CONFIDENTIAL, DO NOT COPY WITHOUT APPROPRIATE AUTHORIZATION. <Electronically signed in Other Vendor System> SIGNED BY: Hermilo Parra MD 08/04 Disposition Summary Disposition Principal Diagnosis: Acute coronary sydrome Additional Diagnosis: hyperglycemia with h/o DM end stage renal disease HTN HL PAD Discharge Disposition: other general hospital Discharge Instructions General Discharge Information Code Status: Full Code Patient's Diet: currently npo Patient's Activity: bedrest Follow-Up Instructions/Appts: Please follow up with you gas tender, parking ramp attendant, apprentice plant attendant as recommended. Medications at Discharge Discharge Medications: Stop taking the following medications: Lisinopril (Lisinopril) 2.5 MG TABLET ORAL DAILY Qty = 30 Cyclobenzaprine HCl (Cyclobenzaprine HCl) 10 MG TABLET ORAL THREE TIMES DAILY as needed for muscle spasm Qty = 30 Continue taking these medications: Insulin Lispro (Humalog) (Unknown Strength) VIAL Unknown Dose Inject into fatty tissue 3 TIMES DAILY BEFORE MEALS Comments: NOT GIVEN IN HOSPITAL PT ON NOVOLOG SLIDING SCALE Metoprolol Tartrate (Lopressor) 100 MG TABLET 0.5 Tablet ORAL DAILY Comments: Last Taken: 12/26/16 Time: 1PM Nitroglycerin (Minitran) 1 EACH PATCH.TD24 0.6 Milligram PATCH See Instructions Instructions: 12 HOURS ON, 12 HOURS OFF Comments: NOT GIVEN IN HOSPITAL Amlodipine Besylate (Amlodipine Besylate) 10 MG TABLET 1 Tablet ORAL DAILY Comments: Last Taken: 08/05/17 Time: 9:00 AM Aspirin (Ecotrin*) 81 MG TABLET.DR 1 Tablet ORAL DAILY Comments: Last Taken: 08/05/17 Time: 9:00 AM Insulin Glargine,Hum.rec.anlog (Lantus Solostar) 100 UNIT/ML (3 ML) INSULN.PEN 20 Units Inject into fatty tissue TWICE DAILY Comments: NOT GIVEN IN HOSPITAL. PT GIVEN LEVIMIR 20 UNITS Atorvastatin Calcium (Lipitor) 20 MG TABLET 1 Tablet ORAL DAILY Comments: Last Taken: 08/05/17 Time: 9:00 AM Cinacalcet HCl (Sensipar) 60 MG TABLET 1 Tablet ORAL DAILY Qty = 30 Comments: Last Taken: 12/25/16 Time: 5PM Hydromorphone HCl (Hydromorphone HCl) 4 MG TABLET 1 Tablet ORAL THREE TIMES DAILY as needed for PAIN Qty = 90 Comments: Last Taken: 12/26/16 Time: 1AM Furosemide (Lasix) 40 MG TABLET 120 Milligram ORAL SuTuThSa@0730,1630 Qty = 30 Instructions: . Comments: Last Taken: 12/25/16 Time: 5PM Furosemide (Lasix) 40 MG TABLET 80 Milligram ORAL MoWeFr@0730,1630 Qty = 30 Instructions: . Comments: Last Taken: 12/26/16 Time: 7:30AM Ibuprofen (Ibuprofen) 600 MG TABLET 1 Tablet ORAL THREE TIMES DAILY as needed for pain Qty = 20 Instructions: with food Fish Oil/Borage/Flax/Om3,6,9#1 (Mitchell 3-6-9 1,200 MG Softgel) 1,200 MG CAPSULE 1 Capsule ORAL DAILY Polyethylene Glycol 3350 (Miralax) 17 GRAM/DOSE POWDER 17 Gram ORAL DAILY Instructions: mix with water, juice, soda, coffee or tea Sodium Bicarbonate (Sodium Bicarbonate) 650 MG TABLET 2 Tablet ORAL THREE TIMES DAILY Start taking the following new medications: Heparin (Heparin-1/2NS 25,000 Units/500) 25,000 UNIT/500 ML (50 UNIT/ML) IV.SOLN 12 Units INTRAVEN PER HG PER HOUR Qty = 1 No Refills Copies To: Jose MACKEY,Joaquin Lopez; Juan Manuel MACKEY,Dion; Fabi MACKEY,Trev Alston Attending MD Review Statement Documenting Attending: Heidy Marie MD Other Findings: Patient being transferred to higher facility for cardiac catheterization.
--- NOTE | 2017-08-05 12:24 | Patient Discharge Instructions ---
Discharge Instructions General Discharge Information You were seen/treated for: chest pain Special Instructions: Patient being transfered to acute care for futher care. Please look at CMR for medical management. Patient was last fed at 11:00 am 08/05/2017 Diet Continue normal diet: No Recommended Diet: npo for now Activity Full Activity/No Limits: No Activity Self Limited: Yes Acute Coronary Syndrome Inclusion Criteria At DC or during hospital stay patient has or had the following: ACS DIAGNOSIS Yes Discharge Core Measures Meds if any: Prescribed or Continued at Discharge Aspirin Yes Beta-Jolanta Yes Statin Yes Meds if any: NOT Prescribed or Continued at Discharge Congestive Heart Failure Inclusion Criteria At DC or during hospital stay patient has or had the following: CHF DIAGNOSIS No Discharge Core Measures Meds if any: Prescribed or Continued at Discharge Meds if any: NOT Prescribed or Continued at Discharge Cerebrovascular accident Inclusion Criteria At DC or during hospital stay patient has or had the following: CVA/TIA Diagnosis No Discharge Core Measures Meds if any: Prescribed or Continued at Discharge Meds if any: NOT Prescribed or Continued at Discharge Venous thromboembolism Inclusion Criteria VTE Diagnosis No VTE Type NONE VTE Confirmed by (Test) NONE Discharge Core Measures - Per Current guidelines, there needs to be overlap - treatment for the first 5 days of Warfarin therapy. - If discharged on Warfarin prior to 5 days of - overlap therapy, the patient will need to be - assessed for post discharge needs including - *Post discharge parental anticoagulation - *Warfarin and/or parental anticoagulation education - *Follow up date to check INR post discharge At least 5 days overlap therapy as Inpatient No Meds if any: Prescribed or Continued at Discharge Note: Overlap Therapy is Warfarin and Anticoagulant Meds if any: NOT Prescribed or Continued at Discharge
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
[2017-08-05] MEDS ORDERED: HEPARIN-1/25000 UNI1 IV (12:43)
[2017-08-05 13:10] VITALS: BP 140/70
[2017-08-05 14:20] LABS: ABSOLUTE BASOPHIL COUNT 0 /CUMM (0.0-0.2); ABSOLUTE EOSINOPHIL COUNT 0.6 /CUMM (0.0-0.7); ABSOLUTE GRANULOCYTE CT 6.9 /CUMM (1.4-6.5); ABSOLUTE LYMPH COUNT 0.7 /CUMM (1.2-3.4); ABSOLUTE MONOCYTE COUNT 0.8 /CUMM (0.10-0.60); BASOPHIL % 0.3 % (0.0-2.0); EOSINOPHIL % 6.8 % (0-5); GRANULOCYTE % 76.3 % (42.2-75.2); HEMATOCRIT 29.7 % (42-52); MEAN CORPUSCULAR HGB 29.8 PG (27.0-31.0); MEAN CORPUSCULAR VOLUME 87.4 FL (80.0-94.0); MEAN PLATELET VOLUME 8.4 FL (7.4-10.4); PLATELET COUNT 143 /CUMM (130-400); RBC DISTRIBUTION WIDTH 14.8 % (11.5-14.5); WHITE BLOOD CELL COUNT 9.1 /CUMM (4.8-10.8)
[2017-08-05 15:38] LABS: PT 12.5 SEC (9.4-12.5); PTT 48 SEC (25-37)
[2017-08-05 16:00] VITALS: BP 132/60
== END 2017-08-05 16:45 | disposition short-term general hospital (02) | DRG 280 ==
LOC: ERH 21:00 → CRI 08-05 00:53 → ERHI 08-05 00:53 → CANRESERV 08-05 08:51 → ENRESERV 08-05 08:51 → EDBEDREQ 08-05 12:29 → ENRESERV 08-05 12:30 → ERHI 08-05 12:31 → ENTRNSPT 08-05 12:47 → EDTRNSPT 08-05 12:55 → EDTRNSPTSTS 08-05 12:55 → CRI 08-05 13:02 → CMPTRNSPT 08-05 13:13 → CRI 08-05 16:45
PROVIDERS: Physician Assistant Medical; Student in an Organized Health Care Education/Training Program
PROC: 5A1D70Z Performance of Urinary Filtration, Intermittent, Less than 6 Hours Per Day (ICD-10-PCS; principal; 2017-08-05)
DX: I21.4 Non-ST elevation (NSTEMI) myocardial infarction (principal); N18.6 End stage renal disease; E11.22 Type 2 diabetes mellitus with diabetic chronic kidney disease; E11.621 Type 2 diabetes mellitus with foot ulcer; I12.0 Hypertensive chronic kidney disease with stage 5 chronic kidney disease or end stage renal disease; I42.9 Cardiomyopathy, unspecified; E11.319 Type 2 diabetes mellitus with unspecified diabetic retinopathy without macular edema; Z94.0 Kidney transplant status; L97.416 Non-pressure chronic ulcer of right heel and midfoot with bone involvement without evidence of necrosis; I50.32 Chronic diastolic (congestive) heart failure; E11.65 Type 2 diabetes mellitus with hyperglycemia; Z99.2 Dependence on renal dialysis; Z79.4 Long term (current) use of insulin; H54.7 Unspecified visual loss; I48.0 Paroxysmal atrial fibrillation; I25.2 Old myocardial infarction; Z90.49 Acquired absence of other specified parts of digestive tract; I25.10 Atherosclerotic heart disease of native coronary artery without angina pectoris; Z95.1 Presence of aortocoronary bypass graft; G47.33 Obstructive sleep apnea (adult) (pediatric); K21.9 Gastro-esophageal reflux disease without esophagitis
CPT/HCPCS: CCU; 36415; 71045; 74174; 81001; 82436; 93005; 93010; 96374; 96375; 96376; 99291; G0480; J1644; J3490; J7507

== ENCOUNTER 2017-10-09 16:26 | Inpatient (IN) | payer OTHER, MEDICARE ==
[~2017-10-09 16:26] MED LIST changes: +HEPARIN-1/25000 UNI1 IV; -LIPITOR20 M2 PO; +MIRALAX119 GM PO; +OMEGA 3-6-9 11200 MG PO; +SODIUM BICARBO650 M1 PO
--- NOTE | 2017-10-09 17:11 | RADIOLOGY REPORT ---
EXAMINATION: XR PORTABLE CHEST CLINICAL INFORMATION: Syncope COMPARISON: 08/04/2017 TECHNIQUE: Portable frontal view of the chest was obtained. FINDINGS: Left atrial appendage clip is noted. Also, loop recorder is noted. Sternotomy wires are intact. Cardiomegaly with persistent pulmonary vascular congestion. However, no overt interstitial edema. No pleural effusion is observed on this single view examination. Linear streaks of opacity in the retrocardiac area, likely atelectasis. No acute skeletal findings compared to 08/04/2017. IMPRESSION: Cardiomegaly and pulmonary vascular congestion.
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
[2017-10-09 17:18] LABS: ABSOLUTE BASOPHIL COUNT 0 /CUMM (0.0-0.2); ABSOLUTE EOSINOPHIL COUNT 0.6 /CUMM (0.0-0.7); ABSOLUTE GRANULOCYTE CT 8.8 /CUMM (1.4-6.5); ABSOLUTE LYMPH COUNT 0.8 /CUMM (1.2-3.4); ABSOLUTE MONOCYTE COUNT 0.8 /CUMM (0.10-0.60); BASOPHIL % 0.2 % (0.0-2.0); GRANULOCYTE % 79.7 % (42.2-75.2); HEMATOCRIT 39.6 % (42-52); MEAN CORPUSCULAR HGB 29.9 PG (27.0-31.0); MEAN CORPUSCULAR VOLUME 93.4 FL (80.0-94.0); MEAN PLATELET VOLUME 8.5 FL (7.4-10.4); PLATELET COUNT 207 /CUMM (130-400); RBC DISTRIBUTION WIDTH 18.5 % (11.5-14.5); RED BLOOD CELL CT 4.24 /CUMM (4.70-6.10)
--- NOTE | 2017-10-09 18:40 | CT SCAN REPORT ---
EXAMINATION: CT HEAD WITHOUT CONTRAST CLINICAL INFORMATION: Altered mental status. COMPARISON: CT head 02/05/2016 TECHNIQUE: Contiguous axial imaging was performed from the skull base to vertex without intravenous administration of contrast. DLP: 627.77 mGy-cm FINDINGS: There is no evidence of acute intracranial hemorrhage or territorial infarction. No abnormal mass effect or midline shift is seen. Mcclelland to white matter differentiation is well preserved. No extra-axial fluid collections are identified. There is atrophy with prominence of the ventricles and the sulci and hypodensity of the periventricular white matter due to chronic small vessel ischemic disease. There is vascular calcifications of the internal carotid arteries bilaterally. The osseous structures and soft tissues are normal. The mastoid air cells and visualized portions of the paranasal sinuses are well aerated. Chronic deformity with calcifications of the left orbit unchanged since prior study. IMPRESSION: No acute intracranial pathology.
--- NOTE | 2017-10-09 18:59 | CT SCAN REPORT ---
EXAMINATION: CT CHEST, ABDOMEN AND PELVIS WITHOUT CONTRAST CLINICAL INFORMATION: Altered mental status . Abdominal pain COMPARISON: CT abdomen pelvis 12/25/2016. Chest x-ray 10/09/2017. CT of chest 08/04/2017. TECHNIQUE: Multidetector volumetric CT imaging of the chest, abdomen and pelvis was obtained without oral or IV contrast. Coronal and sagittal reformatted images are performed at the CT scanner. DLP: 536.69 mGy-cm. FINDINGS: CT CHEST: Lungs: There is linear scarring/linear atelectasis at the right and left lung bases. The central bronchial airways are open. Mediastinum: Status post median sternotomy. The heart size is enlarged but there is no pericardial effusion. There are vascular wall calcifications of aorta at the origin of great vessels. There are coronary artery calcifications. There is a small hiatal hernia. Pleura: There is no pleural effusion. No pleural mass or thickening. Axilla: No lymphadenopathy. CT ABDOMEN AND PELVIS: LIVER, GALLBLADDER, AND BILIARY TREE: The liver is normal in size, shape, and attenuation. No focal hepatic lesion or biliary ductal dilatation is present. Right lobe liver measures 19 cm superior inferior. The gallbladder is absent. The extrahepatic CBD measures 8 mm. PANCREAS: The pancreas is atrophic. Small cysts in the body of the pancreas stable since prior study. No acute abnormality. No pancreatic duct dilatation or mass. SPLEEN: Spleen is enlarged. Spleen measures 16 cm superior inferior. ADRENAL GLANDS: Multiple coarse calcifications in the right adrenal gland. Left adrenal gland is normal. KIDNEYS AND URETERS: Status post renal transplant. Renal transplant left lower quadrant. No calculus or hydronephrosis. The [place] kidneys are atrophic. There is coarse calcifications in the parenchyma of the kidneys as well as a vascular calcification of the renal arteries. BLADDER: The bladder is nearly empty. GASTROINTESTINAL TRACT: Status post right hemicolectomy. The colonic enteric anastomosis in right upper quadrant intact. There is a large volume of stool in the colon but no acute change of the bowel. No bowel obstruction. No bowel wall thickening or edema. The small bowel loops are unremarkable. MESENTERY: No focal inflammation. No free fluid. No free air. ABDOMINAL WALL: No significant hernia is appreciated. LYMPH NODES: Normal. VASCULAR: There are extensive vascular wall calcifications throughout the abdomen and pelvis including the aorta celiac axis, splenic artery, hepatic artery and the SMA involving the mesenteric arteries. There is calcification of the iliac vessels. PELVIC VISCERA: Unremarkable. OSSEOUS STRUCTURES: There are numerous right-sided healed rib fractures. Status post median sternotomy. There is diffuse increased density of the bones. 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 This is unchanged since prior study. There is degenerative spondylosis spine with endplate spurring of the vertebrae. There is depression of the central superior endplate of L4 is unchanged since CAT scan 12/25/2016. IMPRESSION: 1. There is no acute abnormality of the chest, abdomen or pelvis. 2. Heart size enlarged. There is extensive vascular calcifications throughout the chest, abdomen and pelvis 3. Status post kidney transplant. 4. Mild splenomegaly. 5. Status post cholecystectomy. 6. 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 7. Status post right hemicolectomy. No acute change of the bowel.
--- NOTE | 2017-10-09 19:49 | ULTRASOUND REPORT ---
EXAMINATION: US TRIPLEX LOWER EXTREMITY, RIGHT CLINICAL INFORMATION: Edema and swelling COMPARISON: None TECHNIQUE: Color-flow triplex imaging with spectral analysis and compression Doppler were performed on the lower extremity. FINDINGS: Respiratory variation, normal compression and augmented flow are noted throughout the lower extremity. The visualized common femoral vein, superficial femoral vein, profunda femoral vein, popliteal vein and midcalf peroneal and posterior tibial venous segments show no evidence of deep venous thrombosis. There is no Vásquez's cyst. IMPRESSION: No evidence of deep venous thrombosis involving the lower extremity.
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
[2017-10-09 23:20] VITALS: BP 118/78
[2017-10-10 06:55] VITALS: BP 128/76
[2017-10-10 08:30] LABS: ABSOLUTE BASOPHIL COUNT 0 /CUMM (0.0-0.2); ABSOLUTE EOSINOPHIL COUNT 0.3 /CUMM (0.0-0.7); ABSOLUTE MONOCYTE COUNT 0.7 /CUMM (0.10-0.60); MEAN CORPUSCULAR HGB CONC 32.5 G/DL (33.0-37.0); RED BLOOD CELL CT 3.67 /CUMM (4.70-6.10)
--- NOTE | 2017-10-10 08:33 | PN- Housestaff ---
Cierra MACKEY,Ban 10/10/17 0833: Subjective Follow-up For: Right leg cellulitis Syncope Subjective: Patient seen and at bedside. He is lying in his bed and refused for further examination. Hence review of system unobtainable. Review of Systems Constitutional: Reports: no symptoms. Objective Last 24 Hrs of Vital Signs/I&O Vital Signs Date Time Temp Pulse Resp B/P B/P Pulse O2 O2 Flow FiO2 Mean Ox Delivery Rate 10/10 0655 97.9 72 22 128/76 94 Room Air 10/10 0227 75 97 10/10 0225 98 Nasal 2.0L Cannula 10/09 2320 97.6 84 20 118/78 93 Nasal Cannula 10/09 2233 98.8 85 20 102/57 99 2.0L 10/096 101.1 82 18 98/49 99 Nasal 2.0L Cannula 10/09 2054 102.0 10/09 2048 102.0 85 20 95/44 99 Nasal 2.0L Cannula 10/09 1917 100.1 82 20 125/68 97 Nasal 2.0L Cannula 10/09 1653 100.0 100 20 148/80 93 Room Air Room Air Intake & Output 10/10 1600 10/10 0800 10/10 0000 Intake Total 660 0 Output Total Balance 660 0 Intake, Oral 660 0 Patient 186 lb Weight Weight Bed scale Measurement Method Physical Exam General Appearance: Alert, Oriented X3, Cooperative, No Acute Distress Cardiovascular: Regular Rate, Normal S1, Normal S2, No Murmurs Lungs: Clear to Auscultation Abdomen: Soft, No Tenderness, No Hepatospenomegaly Current Medications: Current Medications Sig/Harjinder Start time Last Medication Dose Route Stop Time Status Admin Acetaminophen 650 MG Q6P PRN 10/09 2244 AC PO Acetaminophen 975 MG ONCE ONE 10/09 2114 DC 10/09 PO 10/09 Acetaminophen 0 .STK-MED ONE 10/10 2047 DC PO Ampicillin Sodium/ 3,000 MG ONCE ONE 10/09 2014 CAN Sulbactam Sodium IV 10/10 2043 Sodium Chloride 100 ML Aspirin Buffered 81 MG DAILY 10/10 899 AC PO Atorvastatin Calcium 20 MG DAILY 10/10 899 AC PO Ceftazidime 0 .STK-MED ONE 10/09 2052 DC .ROUTE Ceftazidime 1,000 MG ONCE ONE 10/09 2029 DC 10/09 IV 10/09 203 2100 Cinacalcet 60 MG DAILY 10/10 0900 AC PO Dextrose 25 GM ONCE ONE 10/09 2315 DC 10/09 IV 10/09 2316 2320 Heparin Sodium 5,000 UNIT Q8 10/10 0600 AC 10/10 (Porcine) SC 06 Insulin Aspart 0 TIDAC 10/10 0800 AC SC Morphine Sulfate 1 MG Q4 10/10 0200 DC IV Morphine Sulfate 1 MG Q4P PRN 10/10 0200 AC IV Oxycodone HCl 5 MG Q6 PRN 10/09 2245 AC PO Sodium Bicarbonate 650 MG TID 10/09 2300 AC PO Sodium Chloride 500 ML BOLUS ONE 10/09 2145 DC 10/09 IV 10/09 2244 2158 Sodium Chloride 1,000 ML BOLUS ONE 10/09 2130 CAN IV 10/09 2229 Sodium Chloride 1,000 ML BOLUS ONE 10/09 2045 DC 10/09 IV 10/09 2144 2105 Vancomycin HCl 0 .STK-MED ONE 10/09 2052 DC .ROUTE Vancomycin HCl 1,000 MG ONCE ONE 10/09 2029 DC 10/09 Sodium Chloride 250 ML IV 10/09 2128 2105 Last 24 Hrs of Lab/Gael Results Last 24 Hrs of Labs/Mics: Laboratory Tests 10/10/17 0640: Sodium Pending, Potassium Pending, Chloride Pending, Carbon Dioxide Pending, Anion Gap Pending, BUN Pending, Creatinine Pending, BUN/Creatinine Ratio Pending , CBC w Diff Pending, WBC Pending, RBC Pending, Hgb Pending, Hct Pending, MCV Pending, MCH Pending, MCHC Pending, RDW Pending, Plt Count Pending, MPV Pending 10/09/17 2228: Serum Osmolality 298 H, Lactic Acid 0.7, Lih-J-Qoutsufxbdz Pept 53074 H 10/09/17 1809: ESR Westergren 78 H 10/09/17 1715: ESR Westergren Cancelled 10/09/17 1644: Anion Gap 19 H, Estimated GFR 11 L, BUN/Creatinine Ratio 8.3, Glucose 166 H, Calcium 8.4, Total Bilirubin 0.7, AST 36, ALT 61, Alkaline Phosphatase 369 H, Troponin I 0.02, Total Protein 8.3 H, Albumin 4.2, Globulin 4.1, Albumin/ Globulin Ratio 1.0 L, CBC w Diff NO MAN DIFF REQ, RBC 4.24 L, MCV 93.4, MCH 29.9, MCHC 32.0 L, RDW 18.5 H, MPV 8.5, Gran % 79.7 H, Lymphocytes % 7.6 L, Monocytes % 7.5, Eosinophils % 5.0, Basophils % 0.2, Absolute Granulocytes 8.8 H, Absolute Lymphocytes 0.8 L, Absolute Monocytes 0.8 H, Absolute Eosinophils 0.6, Absolute Basophils 0 Microbiology 10/09 1814 BLOOD: Blood Culture - RECD 10/09 1808 BLOOD: Blood Culture - RECD Assessment/Plan Assessment: 62yo male with with PMHx of Insulin Dependent DM, Renal Failure, Renal Transplant, paroxysmal atrial fibrillation, coronary artery disease, obstructive sleep apnea,GERD, heart Failure, Double heart bipass, HTN, sleep apnea brought to the ED by EMS for suspected syncopal episode. Assessment and plan Patient came in with sepsis with right leg cellulitis. Patient had vancomycin and ceftazidime in ED. We need to consult ID for guiding antibiotics. End- stage renal disease-nephrology on board. Need to get more history from the patient regarding his dialysis schedule. Patient blood pressure was borderline hence his antihypertensives held. CMR needs to be confirmed. Type 1 diabetes-NovoLog sliding scale. Patient's Levemir insulin need to be restarted after confirming the dose. We will continue his home medication Sensipar, atorvastatin, sodium bicarb 650 3 times daily Code-full code Diet-renal diet DVT prophylaxis-heparin Problem List: 1. Near syncope 2. Cellulitis of right lower extremity Pain Ratin Pain Location: none Pain Goal: Remain pain free Pain Plan: tylenol Tomorrow's Labs & Rationales: cbc,bep Jalil MACKEY,Amir 10/10/17 1534: Attending MD Review Statement Attending Statement Attending MD Statement: examined this patient, discuss w/resident/PA/STEAM HAMMER OPERATOR, agreed w/resident/PA/STEAM HAMMER OPERATOR, reviewed EMR data (avail), discussed with nursing Attending Assessment/Plan: Pt was seen and evalauted. Chart reviewed. Denies any further syncopal episode --LE doppler -ve for DVT --cont to monitor
--- NOTE | 2017-10-10 08:48 | Event Note ---
Inpatient Sepsis Exam Sepsis Cardiac Exam: Regular Rate/Rhythm Sepsis Resp Exam: Ronchi Sepsis Cap Refill Exam: <2 Sec Sepsis Peripheral Pulse Exam: Weak Sepsis Peripheral Pulse Location: Radial Sepsis Skin Color Exam: Normal for Ethnicity Skin Temp/Moisture Exam: Cool/Dry
[2017-10-10 08:56] LABS: ABSOLUTE GRANULOCYTE CT 6.2 /CUMM (1.4-6.5); ABSOLUTE LYMPH COUNT 1.1 /CUMM (1.2-3.4); BASOPHIL % 0.6 % (0.0-2.0); EOSINOPHIL % 3.3 % (0-5); GRANULOCYTE % 74.5 % (42.2-75.2); MEAN CORPUSCULAR HGB 30.4 PG (27.0-31.0); MEAN CORPUSCULAR VOLUME 93.5 FL (80.0-94.0); MEAN PLATELET VOLUME 9.1 FL (7.4-10.4); PLATELET COUNT 166 /CUMM (130-400); RBC DISTRIBUTION WIDTH 18.8 % (11.5-14.5); WHITE BLOOD CELL COUNT 8.3 /CUMM (4.8-10.8)
[2017-10-10 09:01] LABS: HEMATOCRIT 34.3 % (42-52)
[2017-10-10] MEDS ORDERED: LIPITOR80 M1 PO (10:23)
[2017-10-10 14:37] VITALS: BP 96/56
--- NOTE | 2017-10-10 15:10 | Event Note ---
Event Note Event Note: Spoke with regarding right lower extremity cellulitis and antibiotic coverage. Of note patient received 1 dose of IV ceftaz and IV vancomycin 10/10/2017 in the ER at the time of admission. * Patient is due for dialysis on Thursday. * He does not need any more antibiotics till Thursday. [facility]anco will cover until he get dialysis * will follow the patient on Thursday and give antibiotic recommendations accordingly.
[2017-10-10 22:21] VITALS: BP 122/60
[2017-10-11 07:09] VITALS: BP 102/56
[2017-10-11 08:32] LABS: ABSOLUTE BASOPHIL COUNT 0 /CUMM (0.0-0.2); ABSOLUTE EOSINOPHIL COUNT 0.4 /CUMM (0.0-0.7); ABSOLUTE GRANULOCYTE CT 5.1 /CUMM (1.4-6.5); ABSOLUTE LYMPH COUNT 0.8 /CUMM (1.2-3.4); ABSOLUTE MONOCYTE COUNT 0.6 /CUMM (0.10-0.60); BASOPHIL % 0.4 % (0.0-2.0); EOSINOPHIL % 5.3 % (0-5); GRANULOCYTE % 74.1 % (42.2-75.2); MEAN CORPUSCULAR HGB 30.6 PG (27.0-31.0); MEAN CORPUSCULAR HGB CONC 33.4 G/DL (33.0-37.0); MEAN CORPUSCULAR VOLUME 91.8 FL (80.0-94.0); MEAN PLATELET VOLUME 9.2 FL (7.4-10.4); PLATELET COUNT 159 /CUMM (130-400); RBC DISTRIBUTION WIDTH 17.9 % (11.5-14.5); RED BLOOD CELL CT 3.38 /CUMM (4.70-6.10); WHITE BLOOD CELL COUNT 6.9 /CUMM (4.8-10.8)
--- NOTE | 2017-10-11 09:00 | PN- Housestaff ---
John MACKEY,Danilo 10/11/17 0900: Subjective Follow-up For: sepsis 2.2 RLE cellulitis. Subjective: No overnight events or complaints. Pt stated that he wante to leave hospital soon. Review of Systems Constitutional: Denies: chills, weakness. EENTM: Reports: no symptoms. Cardiovascular: Denies: chest pain, peripheral edema. Respiratory: Reports: no symptoms. Gastrointestinal: Reports: no symptoms. Musculoskeletal: Reports: no symptoms. Objective Last 24 Hrs of Vital Signs/I&O Vital Signs Date Time Temp Pulse Resp B/P B/P Pulse O2 O2 Flow FiO2 Mean Ox Delivery Rate 10/11 1600 Nasal 2.0L Cannula 10/11 1443 97.7 69 18 116/56 95 Room Air 10/11 1414 116/56 10/11 1201 78 142/84 10/11 0938 104/50 10/11 0709 97.9 74 20 102/56 97 10/11 0059 64 94 10/10 2316 97 CPAP 2.0L 10/10 2312 72 97 10/10 2221 97.2 73 18 122/60 96 Intake & Output 10/11 1600 10/11 0800 10/11 0000 Intake Total 200 Output Total Balance 200 Intake, Oral 200 Number 0 Bowel Movements Physical Exam General Appearance: Alert, Oriented X3, Cooperative, No Acute Distress HEENT: Atraumatic, PERRLA Neck: Supple Cardiovascular: Regular Rate, Normal S1, Normal S2 Lungs: Normal Air Movement Abdomen: Soft, No Tenderness Extremities: No Edema Assessment/Plan Assessment: ASSESSMENT: This is a 62yo male with with PMHx of Insulin Dependent DM, Renal Failure s/p Renal Transplant, pAF, coronary artery disease, obstructive sleep apnea, GERD, heart Failure, HTN, with CC of suspected syncopal. During work up he was found to have sepsis 2.2 RLE cellulitis. PLAN: Borderline BP: BP today AM was about 102/50. Pt was asymptomatic. We held BP Sepsis 2/2 Cellulitis:Overnight afebrile and WBC 6.7. * Appreciate ID recs End-stage renal disease * nephrology on board. * Need to get more history from the patient regarding his dialysis schedule. * sodium bicarb 650 3 times daily * Con't Sensipar * Con't Sevalemer Type 1 diabetes: Pt was hypoglycemic to 50 yesterday night. He was asymptomatic. We d/c his evening levemir. Will con't monitor. * NovoLog sliding scale. * Patient's Levemir insulin need to be restarted after confirming the dose. * Con't Statin Code-full code Diet-renal diet DVT prophylaxis-heparin Problem List: 1. Acute on CKD Pain Ratin Pain Location: none Pain Goal: Remain pain free Pain Plan: none Tomorrow's Labs & Rationales: cbc bep Jalil MACKEY,Amir 10/11/17 1209: Attending MD Review Statement Attending Statement Attending MD Statement: examined this patient, discuss w/resident/PA/UX MANAGER, agreed w/resident/PA/UX MANAGER, discussed with family, reviewed EMR data (avail), discussed with nursing Attending Assessment/Plan: Pt was seen, chart reviewed. No overnight issues. also evaluated by ID --f/u ID recs --likely d/c in next 24 hrs
[2017-10-11 09:38] VITALS: BP 104/50
[2017-10-11] MEDS ORDERED: RENVELA800 M1 PO (09:55)
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
[2017-10-11 14:43] VITALS: BP 116/56
[2017-10-11 21:56] VITALS: BP 110/54
[2017-10-12 06:46] VITALS: BP 112/54
--- NOTE | 2017-10-12 07:00 | PN- Housestaff ---
Sharron Carl 10/12/17 0700: Subjective Follow-up For: RLE Cellulitis Presyncope Tele-Events Since Last Visit: NSR, 67 HR, 5 beats V tach overnight Subjective: Patient seen and examined bedside this morning. Patient sitting comfortably in bed eating breakfast. Patient denies any acute complaints this morning including no shortness of breath, chest pain, palpitations, fever or chills overnight. Patient claims his right lower extremity erythema has significantly reduced since admission. Denies any pain today. Patient is able to ambulate with no assistance. Review of Systems Constitutional: Denies: see HPI. Objective Last 24 Hrs of Vital Signs/I&O Vital Signs Date Time Temp Pulse Resp B/P B/P Pulse O2 O2 Flow FiO2 Mean Ox Delivery Rate 10/12 1019 68 112/54 10/12 1018 68 112/54 10/12 0646 97.7 68 18 112/54 98 CPAP 10/12 0017 62 98 10/12 0000 CPAP 10/11 2234 68 97 10/11 2156 97.6 68 18 110/54 97 Nasal Cannula 10/11 1600 Nasal 2.0L Cannula 10/11 1443 97.7 69 18 116/56 95 Room Air 10/11 1414 116/56 Intake & Output 10/12 1600 10/12 0800 10/12 0000 Intake Total 440 400 Output Total Balance 440 400 Intake, Oral 440 400 Patient 193 lb Weight Weight Bed scale Measurement Method Physical Exam General Appearance: Alert, Oriented X3, Cooperative, No Acute Distress Skin: No Rashes, No Breakdown HEENT: PERRLA, EOMI, Mucous Membr. moist/pink Cardiovascular: Regular Rate, Normal S1, Normal S2 Lungs: Clear to Auscultation, Normal Air Movement Abdomen: Normal Bowel Sounds, Soft, No Tenderness Neurological: Strength at 5/5 X4 Ext, Normal Tone, Sensation Intact, Reflexes 2+ Extremities: Right lwoer extremity skin changes, eyrthema, warmth, nontender Vascular: Normal Pulses, Pulses Symmetrical Current Medications: Current Medications Sig/Harjinder Start time Last Medication Dose Route Stop Time Status Admin Acetaminophen 650 MG .STK-MED ONE 10/12 2215 DC PO 10/11 2216 Acetaminophen 650 MG Q6P PRN 10/09 2245 AC 10/12 PO 0552 Amlodipine Besylate 10 MG DAILY 10/10 1023 AC 10/12 PO 1018 Aspirin Buffered 81 MG DAILY 10/10 0900 AC 10/12 PO 1021 Atorvastatin Calcium 80 MG DAILY@1700 10/11 1700 AC 10/11 PO 1629 Atorvastatin Calcium 80 MG DAILY 10/11 0900 DC PO Cefazolin Sodium 1,000 MG ONCE ONE 10/12 0830 DC IV 10/12 0831 Cinacalcet 60 MG DAILY 10/10 0900 AC 10/12 PO 1028 Furosemide 80 MG MoWeFr@0730,1630 10/12 0730 AC 10/12 PO 0830 Furosemide 120 MG SuTuThSa@0730,1630 10/10 1630 AC 10/11 PO 1628 Heparin Sodium 5,000 UNIT Q8 10/10 0600 AC 10/12 (Porcine) SC 0553 Insulin Aspart 0 TIDAC 10/10 0800 AC 10/12 SC 1221 Insulin Detemir 20 UNITS DAILY 10/10 1036 AC 10/12 SC 1046 Metoprolol Tartrate 50 MG DAILY 10/11 0900 AC 10/12 PO 1019 Morphine Sulfate 1 MG Q4P PRN 10/10 0200 AC IV Oxycodone HCl 5 MG Q6 PRN 10/09 2245 AC PO Sevelamer Carbonate 2,400 MG WM 10/11 1700 AC 10/12 PO 1021 Sevelamer Carbonate 800 MG WM 10/11 1200 DC 10/11 PO 1200 Sodium Bicarbonate 650 MG TID 10/09 2300 AC 10/12 PO 1019 Last 24 Hrs of Lab/Gael Results Last 24 Hrs of Labs/Mics: Laboratory Tests 10/12/17 0705: Anion Gap 22 H, Estimated GFR 5 L, BUN/Creatinine Ratio 10.3, CBC w Diff NO MAN DIFF REQ, RBC 3.30 L, MCV 92.8, MCH 30.2, MCHC 32.5 L, RDW 18.1 H, MPV 8.7, Gran % 60.5, Lymphocytes % 18.2 L, Monocytes % 9.5 H, Eosinophils % 11.2 H, Basophils % 0.6, Absolute Granulocytes 3.3, Absolute Lymphocytes 1.0 L, Absolute Monocytes 0.5, Absolute Eosinophils 0.6, Absolute Basophils 0 Orders ECHO Findings: Left Ventricle Normal left ventricular size, wall thickness and systolic function with no obvious regional wall motion abnormalities. Normal left ventricular diastolic filling pattern for age. The ejection fraction is visually estimated at 55%. 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 Patient received 1 dose of vancomycin and ceftaz. Patient febrile in the ED with low blood pressures. Patient for hemodyalisis today. Problem list: 1. Right lower extremity cellulitis 2. Presyncope 3. End-stage renal diseasehemodialysis MWF Plan: * Patient to undergo hemodialysis today. * Dose Ancef appropriately for renal transplant/post hemodialysis; noted Dr. Macdonald you know stating another dose of IV antibiotics this evening after dialysis given cefazolin as a dialyzable drug * As per Infectious Disease: Continue to elevate right leg, give cefazolin 1 g IV after dialysis today, after which can either re-dose with Cefazolin 1 g after his next dialysis on October 14 or discharge on Keflex 500 mg p.o. every 12 hours for 4 more days to complete a 7 day course of treatment * Echo: Ejection fraction 55% * Blood cultures no growth after day 1 * Continue to monitor on telemetry CODE STATUS: Full code DVT prophylaxis: Heparin SC Diet: Renal dialysis diet Problem List: 1. Near syncope 2. Cellulitis of right lower extremity 3. Diastolic CHF Pain Ratin Pain Location: right lower extremity Pain Goal: Pain 4 or less Pain Plan: as per pain pathway Tomorrow's Labs & Rationales: cbc bep DVT/Prophylaxis: mechanical, pharmacological Beverly Bautista MD 10/12/17 1132: Attending MD Review Statement Attending Statement Attending MD Statement: examined this patient, discuss w/resident/PA/HEALTH OCCUPATIONS INSTRUCTOR, agreed w/resident/PA/HEALTH OCCUPATIONS INSTRUCTOR, reviewed EMR data (avail), discussed with nursing, discussed with case mgmt, reviewed images Attending Assessment/Plan: 62-year-old male past medical history of diabetes, recent bypass 2 months ago, CK D with ESRD on hemodialysis and chronic heart failure with preserved ejection fraction. Is here with cellulitis of his right lower extremity and we have him on IV Ancef per ID. Have noted nephrology's recommendations and will have to dose the Ancef appropriately for renal transplant. He is going to be dialyzed today and will follow up on the results of the echo as he had syncope with what we think was a combination of an infection with dehydration.
[2017-10-12 08:01] LABS: ABSOLUTE BASOPHIL COUNT 0 /CUMM (0.0-0.2); ABSOLUTE EOSINOPHIL COUNT 0.6 /CUMM (0.0-0.7); ABSOLUTE GRANULOCYTE CT 3.3 /CUMM (1.4-6.5); ABSOLUTE MONOCYTE COUNT 0.5 /CUMM (0.10-0.60); BASOPHIL % 0.6 % (0.0-2.0); EOSINOPHIL % 11.2 % (0-5); GRANULOCYTE % 60.5 % (42.2-75.2); HEMATOCRIT 30.6 % (42-52); MEAN CORPUSCULAR HGB 30.2 PG (27.0-31.0); MEAN CORPUSCULAR HGB CONC 32.5 G/DL (33.0-37.0); MEAN CORPUSCULAR VOLUME 92.8 FL (80.0-94.0); MEAN PLATELET VOLUME 8.7 FL (7.4-10.4); PLATELET COUNT 168 /CUMM (130-400); RBC DISTRIBUTION WIDTH 18.1 % (11.5-14.5); WHITE BLOOD CELL COUNT 5.5 /CUMM (4.8-10.8)
--- NOTE | 2017-10-12 09:10 | ECHOCARDIOGRAM REPORT ---
MORALES MAHONEY Age: 62 : 1955 Gender: M Exam Date: 10/11/2017 13:06 Exam Location: 1 [address] Ht (in): 67 Wt (lb): 186 BSA: 2.02 BP: 142 / 84 Ordering Physician: Derrick Santillan MD Referring Physician: Alan Dunlap MD, PhD Technologist: [facility] Room Number: 189-01 Indications: LV function after ACS Rhythm: Sinus Technical Quality: fair FINDINGS Left Ventricle Normal left ventricular size, wall thickness and systolic function with no obvious regional wall motion abnormalities. Normal left ventricular diastolic filling pattern for age. The ejection fraction is visually estimated at 55%. Right Ventricle The right ventricle is normal in size and function. Right Atrium The right atrium is normal in size. Left Atrium The left atrium is moderately enlarged. The interatrial septum is intact. Mitral Valve The mitral valve demonstrated moderate posterior annular calcification with normal function. There is mild mitral regurgitation. Aortic Valve Mildly thickened and sclerotic aortic valve with mild stenosis. There is trace to mild aortic regurgitation. Tricuspid Valve The tricuspid valve is normal in structure and function. There is mild tricuspid regurgitation. Pulmonary artery systolic pressure is moderately elevated to 57mmHg. Pulmonic Valve Structurally normal pulmonic valve. There is mild pulmonic regurgitation. Pericardium Normal pericardium without effusion. No pleural effusion. Great Vessels Normal aortic root dimension. The aortic arch and great vessels are well seen and are normal. CONCLUSIONS 1. Normal EF of 55%. 2. Moderate left atrial enlargement. 3. Mild mitral regurgitation with moderate posterior annular calcification. 4. Mild tricuspid regurgitation. 5. Trace to mild aortic regurgitation and mild aortic stenosis. 6. Mild pulmonic regurgitation. 7. Moderate pulmonary hypertension. Alan Dunlap M.D. (Electronically Signed) Final Date: 12 October 2017 09:06 MEASUREMENTS (Male / Female) Normal Values 2D ECHO LV Diastolic Diameter PLAX 4.5 cm 4.2 - 5.9 / 3.9 - 5.3 cm LV Systolic Diameter PLAX 3.1 cm 2.1 - 4.0 cm LV Fractional Shortening PLAX 31.1 % 25 - 46 % LV Ejection Fraction 2D Teich 59.0 % IVS Diastolic Thickness 1.1 cm LVPW Diastolic Thickness 1.0 cm LV Relative Wall Thickness 0.5 RV Internal Dim ED PLAX 3.2 cm 1.9 - 3.8 cm LVOT Diameter 2.0 cm Aortic Root Diameter 3.3 cm LA Systolic Diameter LX 4.8 cm 3.0 - 4.0 / 2.7 - 3.8 cm LA Volume 78.0 cm 18 - 58 / 22 - 52 cm Ascending Aorta Diameter 3.2 cm DOPPLER AV Peak Velocity 147.0 cm/s AV Peak Gradient 8.6 mmHg AV Mean Velocity 99.6 cm/s AV Mean Gradient 5.0 mmHg AV Velocity Time Integral 34.3 cm LVOT Peak Velocity 102.0 cm/s LVOT Peak Gradient 4.2 mmHg LVOT Mean Velocity 74.1 cm/s LVOT Mean Gradient 2.0 mmHg LVOT Velocity Time Integral 26.3 cm LVOT Stroke Volume 82.6 cm AV Area Cont Eq vti 2.4 cm AV Area Cont Eq pk 2.2 cm MV Peak Velocity 137.0 cm/s MV Peak Gradient 7.5 mmHg MV Mean Velocity 61.5 cm/s MV Mean Gradient 2.0 mmHg Mitral E Point Velocity 138.0 cm/s Mitral A Point Velocity 74.6 cm/s Mitral E to A Ratio 1.8 MV PHT Velocity 143.0 cm/s MV Deceleration Cottle 756.0 cm/s MV Pressure Half Time 56.7 ms MV Area PHT 3.9 cm MV Deceleration Time 155.0 ms TR Peak Velocity 362.0 cm/s TR Peak Gradient 52.4 mmHg Right Atrial Pressure 5.0 mmHg Pulmonary Artery Systolic Pressure 57.4 mmHg Right Ventricular Systolic Pressure 57.4 mmHg PV Peak Velocity 81.6 cm/s PV Peak Gradient 2.7 mmHg PV Mean Velocity 58.9 cm/s PV Mean Gradient 2.0 mmHg PV Velocity Time Integral 20.3 cm LV E' Lateral Velocity 9.3 cm/s Mitral E to LV E' Lateral Ratio 14.9 LV E' Septal Velocity 7.2 cm/s Mitral E to LV E' Septal Ratio 19.2
--- NOTE | 2017-10-12 10:21 | PN- Nephrology ---
Assessment/Plan Nephrology Assessment: Cellulits of the right lower extremity: Improving with IV antibiotics. Blood cultures no growth to date. It appears he may receive a dose of cefazolin this morning. Of note the patient is scheduled to receive dialysis this afternoon, and cefazolin is a dialyzable drug; if plan is to continue IV antibiotics the patient will need another dose of IV antibiotics this evening after dialysis. ESRD: He is scheduled for dialysis today according to his Thursday schedule. Fluid removal will be as tolerated hemodynamically to reach his dry weight. He will receive Epogen with dialysis for anemia of chronic disease. Suggestion: as above Gregory García MD Subjective Subjective: No acute events Afebrile Per patient there has been improvement in the right lower ext cellulitis Last dialyzed Thursday at the [facility] Review of Systems: No fever chills No abdominal pain, nausea, vomiting Denies chest pain or shortness of breath Objective Vital Signs and I&Os Vital Signs Date Time Temp Pulse Resp B/P B/P Pulse O2 O2 Flow FiO2 Mean Ox Delivery Rate 10/12 0646 97.7 68 18 112/54 98 CPAP 10/12 0017 62 98 10/12 0000 CPAP 10/11 2234 68 97 10/11 2156 97.6 68 18 110/54 97 Nasal Cannula 10/11 1600 Nasal 2.0L Cannula 10/11 1443 97.7 69 18 116/56 95 Room Air 10/11 1414 116/56 10/11 1201 78 142/84 Intake & Output 10/12 1600 10/12 0400 10/11 1600 10/11 0400 10/10 1600 10/10 0400 Intake Total 440 904 637 5435 0 Output Total Balance 440 735 901 0961 0 Intake, Oral 440 542 332 8855 0 Number 0 Bowel Movements Patient 193 lb 186 lb Weight Weight Bed scale Bed scale Measurement Method Physical Exam: General: NAD, A+O x3. HEENT: NC/AT. No icterus. Moist mucosa Neck: negative for ALEXANDER, JVD CV: RRR, no m/r/g Pulm: CTAB, no rales Abd: soft, NT/ND, negative renal bruits Lower Ext: +nonpitting edema rt leg. slight warmth &piniish color Upper Ext: LUE AVF +thrill/bruit.l Back: negative for CVA tenderness Neuro: neg tremor, asterixis Skin: +scars in legs : no patel catheter Current Medications: Current Medications Sig/Harjinder Start time Last Medication Dose Route Stop Time Status Admin Acetaminophen 650 MG .STK-MED ONE 10/12 2215 DC PO 10/11 221 Acetaminophen 650 MG Q6P PRN 10/09 2245 10/12 PO 0552 Amlodipine Besylate 10 MG DAILY 10/10 1023 AC 10/10 PO 1453 Aspirin Buffered 81 MG DAILY 10/10 0900 AC 10/11 PO 0929 Atorvastatin Calcium 80 MG DAILY@1700 10/11 1700 AC 10/11 PO 1629 Atorvastatin Calcium 80 MG DAILY 10/11 0900 DC PO Cefazolin Sodium 1,000 MG ONCE ONE 10/12 08 DC IV 10/12 0831 Cinacalcet 60 MG DAILY 10/10 0900 10/11 PO 0929 Furosemide 80 MG MoWeFr@0730,1630 10/12 0730 AC PO Furosemide 120 MG SuTuThSa@0730,1630 10/10 1630 AC 10/11 PO 1628 Heparin Sodium 5,000 UNIT Q8 10/10 0600 10/12 (Porcine) SC 0553 Insulin Aspart 0 TIDAC 10/10 0800 10/11 SC 1733 Insulin Detemir 20 UNITS DAILY 10/10 1036 10/11 SC 0928 Metoprolol Tartrate 50 MG DAILY 10/11 0900 10/11 PO 1201 Morphine Sulfate 1 MG Q4P PRN 10/10 0200 AC IV Oxycodone HCl 5 MG Q6 PRN 10/09 2245 AC PO Sevelamer Carbonate 2,400 MG WM 10/11 1700 AC 10/11 PO 1733 Sevelamer Carbonate 800 MG WM 10/11 1200 DC 10/11 PO 1200 Sodium Bicarbonate 650 MG TID 10/09 2300 AC 10/11 PO 2128 Results Pertinent Lab Results: Laboratory Tests 10/12 10/11 0705 0655 Chemistry Sodium (137 - 145 mmol/L) 133 L 137 Potassium (3.5 - 5.1 mmol/L) 5.1 5.1 Chloride (98 - 107 mmol/L) 95 L 98 Carbon Dioxide (22 - 30 mmol/L) 16 L 18 L Anion Gap (5 - 16) 22 H 20 H BUN (9 - 20 mg/dL) 102 *H 79 H Creatinine (0.7 - 1.2 mg/dL) 9.9 *H 8.7 *H Estimated GFR (>60 ml/min) 5 L 6 L BUN/Creatinine Ratio (7 - 25 %) 10.3 9.1 Hematology CBC w Diff NO MAN DIFF REQ NO MAN DIFF REQ WBC (4.8 - 10.8 /CUMM) 5.5 6.9 RBC (4.70 - 6.10 /CUMM) 3.30 L 3.38 L Hgb (14.0 - 18.0 G/DL) 10.0 L 10.4 L Hct (42 - 52 %) 30.6 L 31.0 L MCV (80.0 - 94.0 FL) 92.8 91.8 MCH (27.0 - 31.0 PG) 30.2 30.6 MCHC (33.0 - 37.0 G/DL) 32.5 L 33.4 RDW (11.5 - 14.5 %) 18.1 H 17.9 H Plt Count (130 - 400 /CUMM) 168 159 MPV (7.4 - 10.4 FL) 8.7 9.2 Gran % (42.2 - 75.2 %) 60.5 74.1 Lymphocytes % (20.5 - 51.1 %) 18.2 L 11.8 L Monocytes % (1.7 - 9.3 %) 9.5 H 8.4 Eosinophils % (0 - 5 %) 11.2 H 5.3 H Basophils % (0.0 - 2.0 %) 0.6 0.4 Absolute Granulocytes (1.4 - 6.5 /CUMM) 3.3 5.1 Absolute Lymphocytes (1.2 - 3.4 /CUMM) 1.0 L 0.8 L Absolute Monocytes (0.10 - 0.60 /CUMM) 0.5 0.6 Absolute Eosinophils (0.0 - 0.7 /CUMM) 0.6 0.4 Absolute Basophils (0.0 - 0.2 /CUMM) 0 0 10/10 10/10 10/10 0640 0600 0600 Chemistry Sodium (137 - 145 mmol/L) 138 Potassium (3.5 - 5.1 mmol/L) 5.0 Chloride (98 - 107 mmol/L) 100 Carbon Dioxide (22 - 30 mmol/L) 22 Anion Gap (5 - 16) 16 BUN (9 - 20 mg/dL) 58 H Creatinine (0.7 - 1.2 mg/dL) 7.0 *H Estimated GFR (>60 ml/min) 8 L BUN/Creatinine Ratio (7 - 25 %) 8.3 Magnesium (1.6 - 2.3 mg/dL) 2.3 Hematology CBC w Diff NO MAN DIFF REQ WBC (4.8 - 10.8 /CUMM) 8.3 RBC (4.70 - 6.10 /CUMM) 3.67 L Hgb (14.0 - 18.0 G/DL) 11.1 L Hct (42 - 52 %) 34.3 L MCV (80.0 - 94.0 FL) 93.5 MCH (27.0 - 31.0 PG) 30.4 MCHC (33.0 - 37.0 G/DL) 32.5 L RDW (11.5 - 14.5 %) 18.8 H Plt Count (130 - 400 /CUMM) 166 MPV (7.4 - 10.4 FL) 9.1 Gran % (42.2 - 75.2 %) 74.5 Lymphocytes % (20.5 - 51.1 %) 13.6 L Monocytes % (1.7 - 9.3 %) 8.0 Eosinophils % (0 - 5 %) 3.3 Basophils % (0.0 - 2.0 %) 0.6 Absolute Granulocytes (1.4 - 6.5 /CUMM) 6.2 Absolute Lymphocytes (1.2 - 3.4 /CUMM) 1.1 L Absolute Monocytes (0.10 - 0.60 /CUMM) 0.7 H Absolute Eosinophils (0.0 - 0.7 /CUMM) 0.3 Absolute Basophils (0.0 - 0.2 /CUMM) 0 Urines Urine Color Cancelled Urine Clarity Cancelled Urine pH Cancelled Ur Specific Gilmer Cancelled Urine Protein Cancelled Urine Ketones Cancelled Urine Nitrite Cancelled Urine Bilirubin Cancelled Urine Urobilinogen Cancelled Ur Leukocyte Esterase Cancelled Ur Microscopic Cancelled Urine Hemoglobin Cancelled Urine Osmolality Cancelled Ur Random Creatinine Cancelled Ur Random Sodium Cancelled Ur Random Potassium Cancelled Fraction Sodium Excret Cancelled Urine Glucose Cancelled 10/09 10/09 10/09 5615 180 1716 Chemistry Serum Osmolality (285 - 295 MOSM/KG) 298 H Lactic Acid (0.7 - 2.1 mmol/L) 0.7 Own-A-Dacafgtropf Pept (<125 pg/mL) 10377 H Hematology ESR Westergren (0 - 10 MM) 78 H Cancelled 10/09 1644 Chemistry Sodium (137 - 145 mmol/L) 137 Potassium (3.5 - 5.1 mmol/L) 4.3 Chloride (98 - 107 mmol/L) 99 Carbon Dioxide (22 - 30 mmol/L) 19 L Anion Gap (5 - 16) 19 H BUN (9 - 20 mg/dL) 45 H Creatinine (0.7 - 1.2 mg/dL) 5.4 *H Estimated GFR (>60 ml/min) 11 L BUN/Creatinine Ratio (7 - 25 %) 8.3 Glucose (65 - 99 mg/dL) 166 H Calcium (8.4 - 10.2 mg/dL) 8.4 Total Bilirubin (0.2 - 1.3 mg/dL) 0.7 AST (17 - 59 U/L) 36 ALT (21 - 72 U/L) 61 Alkaline Phosphatase (< 127 U/L) 369 H Troponin I (<0.11 ng/ml) 0.02 Total Protein (6.3 - 8.2 g/dL) 8.3 H Albumin (3.5 - 5.0 g/dL) 4.2 Globulin (1.9 - 4.2 gm/dL) 4.1 Albumin/Globulin Ratio (1.1 - 2.2 %) 1.0 L Hematology CBC w Diff NO MAN DIFF REQ WBC (4.8 - 10.8 /CUMM) 11.0 H RBC (4.70 - 6.10 /CUMM) 4.24 L Hgb (14.0 - 18.0 G/DL) 12.7 L Hct (42 - 52 %) 39.6 L MCV (80.0 - 94.0 FL) 93.4 MCH (27.0 - 31.0 PG) 29.9 MCHC (33.0 - 37.0 G/DL) 32.0 L RDW (11.5 - 14.5 %) 18.5 H Plt Count (130 - 400 /CUMM) 207 MPV (7.4 - 10.4 FL) 8.5 Gran % (42.2 - 75.2 %) 79.7 H Lymphocytes % (20.5 - 51.1 %) 7.6 L Monocytes % (1.7 - 9.3 %) 7.5 Eosinophils % (0 - 5 %) 5.0 Basophils % (0.0 - 2.0 %) 0.2 Absolute Granulocytes (1.4 - 6.5 /CUMM) 8.8 H Absolute Lymphocytes (1.2 - 3.4 /CUMM) 0.8 L Absolute Monocytes (0.10 - 0.60 /CUMM) 0.8 H Absolute Eosinophils (0.0 - 0.7 /CUMM) 0.6 Absolute Basophils (0.0 - 0.2 /CUMM) 0
[2017-10-12 14:02] LABS: ABSOLUTE BASOPHIL COUNT 0 /CUMM (0.0-0.2); ABSOLUTE EOSINOPHIL COUNT 0.5 /CUMM (0.0-0.7); ABSOLUTE GRANULOCYTE CT 4.6 /CUMM (1.4-6.5); ABSOLUTE LYMPH COUNT 0.8 /CUMM (1.2-3.4); ABSOLUTE MONOCYTE COUNT 0.6 /CUMM (0.10-0.60); BASOPHIL % 0.6 % (0.0-2.0); EOSINOPHIL % 8.3 % (0-5); GRANULOCYTE % 70.2 % (42.2-75.2); HEMATOCRIT 31.9 % (42-52); MEAN CORPUSCULAR HGB 30.4 PG (27.0-31.0); MEAN CORPUSCULAR HGB CONC 33.4 G/DL (33.0-37.0); MEAN PLATELET VOLUME 9.2 FL (7.4-10.4); PLATELET COUNT 185 /CUMM (130-400); RBC DISTRIBUTION WIDTH 18.1 % (11.5-14.5); WHITE BLOOD CELL COUNT 6.5 /CUMM (4.8-10.8)
[2017-10-12 14:22] VITALS: BP 145/74
--- NOTE | 2017-10-12 15:07 | PN- Infect Dx ---
Subjective Subjective: No fever; improved redness and pain R LE. Fair appetite. Review of Systems Comments: 12 points reviewed as noted, otherwise negative. Objective Last 24 Hrs of Vital Signs/I&O Vital Signs Date Time Temp Pulse Resp B/P B/P Pulse O2 O2 Flow FiO2 Mean Ox Delivery Rate 10/12 1422 97.6 68 145/74 10/12 1019 68 112/54 10/12 1018 68 112/54 10/12 0646 97.7 68 18 112/54 98 CPAP 10/12 0017 62 98 10/12 0000 CPAP 10/11 2234 68 97 10/11 2156 97.6 68 18 110/54 97 Nasal Cannula 10/11 1600 Nasal 2.0L Cannula Intake & Output 10/12 1600 10/12 0800 10/12 0000 Intake Total 440 400 Output Total Balance 440 400 Intake, Oral 440 400 Patient 193 lb Weight Weight Bed scale Measurement Method Physical Exam Other Physical Findings: He is awake and alert in no acute distress. He is afebrile. Skin reveals no rash. 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 Neck is supple with no adenopathy. Lungs are clear. Heart irregular rhythm with no murmur. Abdomen is soft, nontender with positive bowel sounds. Back no CVA tenderness. Extremities chronic changes to the right lower extremity, with right leg edema, mild erythema up to the medial aspect of the right thigh, warm to touch, with no tenderness; decreased pulses both feet; left upper extremity fistula with positive bruit and thrill, with no inflammation. Neuro is without focality. Results Last 24 Hours of Lab Results: Laboratory Tests 10/12 10/12 1328 0705 Chemistry Sodium (137 - 145 mmol/L) 129 L 133 L Potassium (3.5 - 5.1 mmol/L) 5.6 H 5.1 Chloride (98 - 107 mmol/L) 91 L 95 L Carbon Dioxide (22 - 30 mmol/L) 17 L 16 L Anion Gap (5 - 16) 21 H 22 H BUN (9 - 20 mg/dL) Pending 102 *H Creatinine (0.7 - 1.2 mg/dL) Pending 9.9 *H Estimated GFR (>60 ml/min) 5 L BUN/Creatinine Ratio (7 - 25 %) 10.5 10.3 Glucose (65 - 99 mg/dL) Pending Calcium (8.4 - 10.2 mg/dL) 7.6 L Phosphorus (2.5 - 4.5 mg/dL) 8.6 H Hematology CBC w Diff NO MAN DIFF REQ NO MAN DIFF REQ WBC (4.8 - 10.8 /CUMM) 6.5 5.5 RBC (4.70 - 6.10 /CUMM) 3.50 L 3.30 L Hgb (14.0 - 18.0 G/DL) 10.6 L 10.0 L Hct (42 - 52 %) 31.9 L 30.6 L MCV (80.0 - 94.0 FL) 91.0 92.8 MCH (27.0 - 31.0 PG) 30.4 30.2 MCHC (33.0 - 37.0 G/DL) 33.4 32.5 L RDW (11.5 - 14.5 %) 18.1 H 18.1 H Plt Count (130 - 400 /CUMM) 185 168 MPV (7.4 - 10.4 FL) 9.2 8.7 Gran % (42.2 - 75.2 %) 70.2 60.5 Lymphocytes % (20.5 - 51.1 %) 12.0 L 18.2 L Monocytes % (1.7 - 9.3 %) 8.9 9.5 H Eosinophils % (0 - 5 %) 8.3 H 11.2 H Basophils % (0.0 - 2.0 %) 0.6 0.6 Absolute Granulocytes (1.4 - 6.5 /CUMM) 4.6 3.3 Absolute Lymphocytes (1.2 - 3.4 /CUMM) 0.8 L 1.0 L Absolute Monocytes (0.10 - 0.60 /CUMM) 0.6 0.5 Absolute Eosinophils (0.0 - 0.7 /CUMM) 0.5 0.6 Absolute Basophils (0.0 - 0.2 /CUMM) 0 0 Last 24 Hours of Gael Results: SPEC #: [id number] BINU: 10/09/17 STATUS: RES RECD: 10/09/[address]: Smooth Petersen SOURCE: BLOOD ENTR: 10/09/[address]: Rena MACKEY, Elvira SPDESC: 2ND/VENOUS ORDERED: BLOOD CULTURE Procedure Result > BLOOD CULTURE REPORT Preliminary 10/10/17-1219 No growth after 1 day incubation. Specimen is examined continuously for 5 days before final report unless culture becomes positive. Recent Imaging Studies: 2D Echo: CONCLUSIONS 1. Normal EF of 55%. 2. Moderate left atrial enlargement. 3. Mild mitral regurgitation with moderate posterior annular calcification. 4. Mild tricuspid regurgitation. 5. Trace to mild aortic regurgitation and mild aortic stenosis. 6. Mild pulmonic regurgitation. 7. Moderate pulmonary hypertension. Alan Dunlap M.D. (Electronically Signed) Final Date: 12 October 2017 Assessment/Plan ID Impression: 62-year-old man with a history of diabetes, chronic kidney disease, on dialysis (Mondays, Wednesdays and Fridays) for the past 6 months via a left upper extremity fistula, status post a CABG 2 months prior to admission and chronic right lower extremity swelling admitted on October 09 after a syncopal episode following dialysis, found to be febrile and borderline hypotensive, with his exam notable for right lower extremity erythema and with a mild leukocytosis. Right lower extremity cellulitis, superimposed on chronic stasis dermatitis changes. Continue empiric abx cob\verage for gram-positive organisms, namely beta-hemolytic strep and Staph aureus, with Cefazolin 1 gm daily (please on HD days give after HD). Suggestion: 1. Elevation of the right leg 2. Would give Cefazolin 1 g IV daily (schedule after HD on HD days); w/ plan to discharge on October (Keflex 750 mg p.o. every 24 hours with dinner for 4 more days to complete a 7 day course of treatment). 3. Call if fever. 4. Obtain nasal MRSA surv cx.
--- NOTE | 2017-10-12 15:18 | PN- Cardiology ---
Subjective Subjective: * No complaints of chest discomfort, shortness of breath, lightheadedness or palpitations. * Interogation of his loop recorder was negative for any ventricular dysrhythmias. * Normal troponin. Objective Vital Signs and I&Os Vital Signs Date Time Temp Pulse Resp B/P B/P Pulse O2 O2 Flow FiO2 Mean Ox Delivery Rate 10/12 1422 97.6 68 145/74 10/12 1019 68 112/54 10/12 1018 68 112/54 10/12 0646 97.7 68 18 11254 98 CPAP 10/12 0017 62 98 10/12 0000 CPAP 10/11 2234 68 97 10/11 2156 97.6 68 18 110/54 97 Nasal Cannula 10/11 1600 Nasal 2.0L Cannula Intake & Output 10/12 1600 10/12 0800 10/12 0000 10/11 1600 10/11 0000 Intake Total 440 400 200 Output Total Balance 440 400 200 Intake, Oral 440 400 200 Number 0 Bowel Movements Patient 193 lb Weight Weight Bed scale Measurement Method Physical Exam: General: WD/WN male in NAD; alert and oriented x 3 HEENT: NC/AT, right eye reactive to light, left eye is blind Neck: no JVD, no carotid bruit Heart: RRR Lungs: clear bilaterally Abdomen: soft, NT, +ve bowel sounds Extremities: no edema Assessment/Plan Assessment/Plan * This patient had a syncopal episode after dialysis that was likely related to dehydration following dialysis. No prolonged ventricular dysrhythmias were noted upon interogation of his LINQ loop recorder. * Continue dialysis for fluid removal and management of his electrolytes. Continue telemetry? Yes
[2017-10-12 17:45] VITALS: BP 128/84
[2017-10-12 22:13] VITALS: BP 134/76
[2017-10-13 06:50] VITALS: BP 120/60
--- NOTE | 2017-10-13 07:21 | PN- Housestaff ---
Josh Alcala 10/13/17 0721: Subjective Follow-up For: RLE Cellulitis Presyncope Subjective: Patient had dialysis yesterday and feels better .patient denies any acute complaints this morning including no shortness of breath, chest pain, palpitations, fever or chills overnight. Patient claims his right lower extremity erythema has significantly reduced since admission. Denies any pain today. Patient is able to ambulate with no assistance. Review of Systems Constitutional: Denies: no symptoms. Cardiovascular: Reports: no symptoms. Respiratory: Reports: no symptoms. Gastrointestinal: Reports: no symptoms. Genitourinary: Reports: no symptoms. Musculoskeletal: Reports: no symptoms. Objective Last 24 Hrs of Vital Signs/I&O Vital Signs Date Time Temp Pulse Resp B/P B/P Pulse O2 O2 Flow FiO2 Mean Ox Delivery Rate 10/13 0907 69 120/60 10/13 0906 69 120/60 10/13 0650 99.0 69 18 120/60 95 10/13 0105 69 97 10/13 0000 CPAP 10/12 2244 78 98 10/12 2213 98.1 70 18 134/76 95 10/12 1745 98.4 74 18 128/84 94 10/12 1422 97.6 68 145/74 Intake & Output 10/13 1600 10/13 0800 10/13 0000 Intake Total 300 120 Output Total Balance 300 120 Intake, Oral 300 120 Patient 494 lb Weight Physical Exam General Appearance: Alert, Oriented X3, Cooperative, No Acute Distress Cardiovascular: Regular Rate, No Murmurs Lungs: Clear to Auscultation, Normal Air Movement Abdomen: Normal Bowel Sounds, Soft, No Tenderness, No Hepatospenomegaly, No Masses Neurological: Normal Speech, Strength at 5/5 X4 Ext, Normal Tone, Sensation Intact Extremities: No Clubbing (redness in the right leg) Assessment/Plan Problem List: 1. Cellulitis Right lower extremity cellulitis improved Patient was on cefazolin 1 g IV yesterday Patient can be discharged home on Keflex 750 mg per daily for 4 days to complete a 7-day course of treatment Call if fever 2. Chronic renal failure Stable from renal standpoint. discharged today. he will have his next dialysis tomorrow at the [facility] according to his Thursday schedule 3. Syncope No chest discomfort, shortness of breath, lightheadedness or palpitations Syncopal-like attack following dialysis likely related to dehydration postdialysis Continue dialysis as scheduled Pain Ratin Pain Location: n/a Pain Goal: Remain pain free Pain Plan: tylenol Tomorrow's Labs & Rationales: none Lily MACKEYBeverly 10/13/17 1145: Attending MD Review Statement Attending Statement Attending MD Statement: examined this patient, discuss w/resident/PA/MEDIA PROFESSIONAL, agreed w/resident/PA/MEDIA PROFESSIONAL, reviewed EMR data (avail), discussed with nursing, discussed with case mgmt, reviewed images Attending Assessment/Plan: Patient feels well. He feels like his right leg has improved considerably. We feel that the syncope was a combination of dialysis and infection. He stable to leave today and will switch him to p.o. Keflex by mouth to complete a total of 7 days of antibiotics. His will pick him up later today and he will follow with dialysis 3 times a week.
[2017-10-13 07:49] LABS: ABSOLUTE BASOPHIL COUNT 0 /CUMM (0.0-0.2); ABSOLUTE EOSINOPHIL COUNT 0.4 /CUMM (0.0-0.7); ABSOLUTE GRANULOCYTE CT 3.1 /CUMM (1.4-6.5); ABSOLUTE LYMPH COUNT 0.8 /CUMM (1.2-3.4); ABSOLUTE MONOCYTE COUNT 0.5 /CUMM (0.10-0.60); BASOPHIL % 0.9 % (0.0-2.0); HEMATOCRIT 30.8 % (42-52); MEAN CORPUSCULAR HGB CONC 32.7 G/DL (33.0-37.0); MEAN CORPUSCULAR VOLUME 91.8 FL (80.0-94.0); PLATELET COUNT 173 /CUMM (130-400); RBC DISTRIBUTION WIDTH 17.8 % (11.5-14.5); RED BLOOD CELL CT 3.36 /CUMM (4.70-6.10); WHITE BLOOD CELL COUNT 4.9 /CUMM (4.8-10.8)
[2017-10-13 09:07] VITALS: BP 120/60
--- NOTE | 2017-10-13 10:13 | Patient Discharge Instructions ---
Discharge Instructions General Discharge Information You were seen/treated for: right leg cellulitis presyncope ESRD on dialysis Watch for these problems: fever, redness of Lower extremities, chest pain Special Instructions: -continue hemodialysis on Thursday, and thursday. -right leg elevation -f/u nephrology and cardiology outpatient within 1 week of discharge Diet Continue normal diet: Yes Recommended Diet: Regular Acute Coronary Syndrome Inclusion Criteria At DC or during hospital stay patient has or had the following: ACS DIAGNOSIS No Discharge Core Measures Meds if any: Prescribed or Continued at Discharge Meds if any: NOT Prescribed or Continued at Discharge Congestive Heart Failure Inclusion Criteria At DC or during hospital stay patient has or had the following: CHF DIAGNOSIS No Discharge Core Measures Meds if any: Prescribed or Continued at Discharge Meds if any: NOT Prescribed or Continued at Discharge Cerebrovascular accident Inclusion Criteria At DC or during hospital stay patient has or had the following: CVA/TIA Diagnosis No Discharge Core Measures Meds if any: Prescribed or Continued at Discharge Meds if any: NOT Prescribed or Continued at Discharge Venous thromboembolism Inclusion Criteria VTE Diagnosis No VTE Type NONE VTE Confirmed by (Test) NONE Discharge Core Measures - Per Current guidelines, there needs to be overlap - treatment for the first 5 days of Warfarin therapy. - If discharged on Warfarin prior to 5 days of - overlap therapy, the patient will need to be - assessed for post discharge needs including - *Post discharge parental anticoagulation - *Warfarin and/or parental anticoagulation education - *Follow up date to check INR post discharge At least 5 days overlap therapy as Inpatient No Meds if any: Prescribed or Continued at Discharge Note: Overlap Therapy is Warfarin and Anticoagulant Meds if any: NOT Prescribed or Continued at Discharge
[2017-10-13] MEDS ORDERED: KEFLEX750 M1 PO ×2 (10:26→10:43)
--- NOTE | 2017-10-13 11:21 | PN- Nephrology ---
Assessment/Plan Nephrology Assessment: ESRD: Stable from renal standpoint. As anticipated to be discharged today he will have his next dialysis tomorrow at the [facility] according to his Thursday schedule. RLE cellulitis: Plan for change to by mouth Keflex noted. Suggestion: as above Subjective Subjective: No acute events Dialyzed yesterday without issue cellulitis improving with antibiotic Review of Systems: No fever or chills Shortness of breath or chest pain Objective Vital Signs and I&Os Vital Signs Date Time Temp Pulse Resp B/P B/P Pulse O2 O2 Flow FiO2 Mean Ox Delivery Rate 10/13 0907 69 120/60 10/13 0906 69 120/60 10/13 0650 99.0 69 18 120/60 95 10/13 0105 69 97 10/13 0000 CPAP 10/12 2244 78 98 10/12 2213 98.1 70 18 134/76 95 10/12 1745 98.4 74 18 128/84 94 10/12 1422 97.6 68 145/74 Intake & Output 10/13 1600 10/13 0400 10/12 1600 10/12 0400 10/11 1600 10/11 0400 Intake Total 120 840 400 200 Output Total Balance 120 840 400 200 Intake, Oral 120 840 400 200 Number 0 Bowel Movements Patient 494 lb 193 lb Weight Weight Bed scale Measurement Method Physical Exam: nad s1 s2 ctab no pitting edema +mild erythema, non pitting edema RLE. redness improving, warmth improved AVF +thrill/bruit Current Medications: Current Medications Sig/Harjinder Start time Last Medication Dose Route Stop Time Status Admin Acetaminophen 650 MG .STK-MED ONE 10/13 2035 DC PO 10/12 2036 Acetaminophen 650 MG Q6P PRN 10/09 2245 AC 10/13 PO 0505 Amlodipine Besylate 10 MG DAILY 10/10 1023 AC 10/13 PO 0907 Aspirin Buffered 81 MG DAILY 10/10 09 AC 10/13 PO 0906 Atorvastatin Calcium 80 MG DAILY@1700 10/11 1700 AC 10/12 PO 1740 Cinacalcet 60 MG DAILY 10/10 0900 AC 10/13 PO 0907 Diphenhydramine HCl 25 MG ONCE ONE 10/13 1015 DC 10/13 PO 10/13 1016 1025 Diphenhydramine HCl 12.5 MG ONCE ONE 07/31 0945 CAN PO 10/13 0946 Epoetin Paolo 1,000 UNIT 10/14 0900 DC IV Epoetin Paolo 7,000 UNIT 10/12 1500 DC IV Epoetin Paolo 3,000 UNIT 10/12 1500 DC IV Epoetin Paolo 4,000 UNIT 10/12 1500 AC IV Epoetin Paolo 3,000 UNIT 10/12 1500 AC IV Epoetin Paolo 1,000 UNIT 10/12 1430 DC IV Furosemide 80 MG MoWeFr@30,1630 10/12 0730 AC 10/12 PO 1748 Furosemide 120 MG SuTuThSa@30,16310/10 1630 AC 10/13 PO 0828 Heparin Sodium 5,000 UNIT Q8 10/10 0600 AC 10/13 (Porcine) SC 0505 Insulin Aspart 0 TIDAC 10/10 0800 AC 10/13 SC 0836 Insulin Detemir 20 UNITS DAILY 10/10 1036 AC 10/13 SC 0836 Metoprolol Tartrate 50 MG DAILY 10/11 0900 AC 10/13 PO 0906 Morphine Sulfate 1 MG Q4P PRN 10/10 0200 AC IV Oxycodone HCl 5 MG Q6 PRN 10/09 2245 AC PO Sevelamer Carbonate 2,400 MG WM 10/11 1700 AC 10/13 PO 0828 Sodium Bicarbonate 650 MG TID 10/09 2300 AC 10/13 PO 0907 Results Pertinent Lab Results: Laboratory Tests 10/13 10/12 0600 1447 Chemistry Sodium (137 - 145 mmol/L) 136 L Potassium (3.5 - 5.1 mmol/L) 4.5 Chloride (98 - 107 mmol/L) 97 L Carbon Dioxide (22 - 30 mmol/L) 22 Anion Gap (5 - 16) 18 H BUN (9 - 20 mg/dL) 61 H Creatinine (0.7 - 1.2 mg/dL) 7.2 *H Estimated GFR (>60 ml/min) 8 L BUN/Creatinine Ratio (7 - 25 %) 8.5 Hematology CBC w Diff NO MAN DIFF REQ WBC (4.8 - 10.8 /CUMM) 4.9 RBC (4.70 - 6.10 /CUMM) 3.36 L Hgb (14.0 - 18.0 G/DL) 10.1 L Hct (42 - 52 %) 30.8 L MCV (80.0 - 94.0 FL) 91.8 MCH (27.0 - 31.0 PG) 30.0 MCHC (33.0 - 37.0 G/DL) 32.7 L RDW (11.5 - 14.5 %) 17.8 H Plt Count (130 - 400 /CUMM) 173 MPV (7.4 - 10.4 FL) 9.0 Gran % (42.2 - 75.2 %) 64.0 Lymphocytes % (20.5 - 51.1 %) 16.1 L Monocytes % (1.7 - 9.3 %) 10.0 H Eosinophils % (0 - 5 %) 9.0 H Basophils % (0.0 - 2.0 %) 0.9 Absolute Granulocytes (1.4 - 6.5 /CUMM) 3.1 Absolute Lymphocytes (1.2 - 3.4 /CUMM) 0.8 L Absolute Monocytes (0.10 - 0.60 /CUMM) 0.5 Absolute Eosinophils (0.0 - 0.7 /CUMM) 0.4 Absolute Basophils (0.0 - 0.2 /CUMM) 0 Serology Hep Bs Antibody (NONREACTIVE) NONREACTIVE 10/12 10/12 1328 0705 Chemistry Sodium (137 - 145 mmol/L) 129 L 133 L Potassium (3.5 - 5.1 mmol/L) 5.6 H 5.1 Chloride (98 - 107 mmol/L) 91 L 95 L Carbon Dioxide (22 - 30 mmol/L) 17 L 16 L Anion Gap (5 - 16) 21 H 22 H BUN (9 - 20 mg/dL) 107 *H 102 *H Creatinine (0.7 - 1.2 mg/dL) 10.2 *H 9.9 *H Estimated GFR (>60 ml/min) 5 L 5 L BUN/Creatinine Ratio (7 - 25 %) 10.5 10.3 Glucose (65 - 99 mg/dL) 318 H Calcium (8.4 - 10.2 mg/dL) 7.6 L Phosphorus (2.5 - 4.5 mg/dL) 8.6 H Hematology CBC w Diff NO MAN DIFF REQ NO MAN DIFF REQ WBC (4.8 - 10.8 /CUMM) 6.5 5.5 RBC (4.70 - 6.10 /CUMM) 3.50 L 3.30 L Hgb (14.0 - 18.0 G/DL) 10.6 L 10.0 L Hct (42 - 52 %) 31.9 L 30.6 L MCV (80.0 - 94.0 FL) 91.0 92.8 MCH (27.0 - 31.0 PG) 30.4 30.2 MCHC (33.0 - 37.0 G/DL) 33.4 32.5 L RDW (11.5 - 14.5 %) 18.1 H 18.1 H Plt Count (130 - 400 /CUMM) 185 168 MPV (7.4 - 10.4 FL) 9.2 8.7 Gran % (42.2 - 75.2 %) 70.2 60.5 Lymphocytes % (20.5 - 51.1 %) 12.0 L 18.2 L Monocytes % (1.7 - 9.3 %) 8.9 9.5 H Eosinophils % (0 - 5 %) 8.3 H 11.2 H Basophils % (0.0 - 2.0 %) 0.6 0.6 Absolute Granulocytes (1.4 - 6.5 /CUMM) 4.6 3.3 Absolute Lymphocytes (1.2 - 3.4 /CUMM) 0.8 L 1.0 L Absolute Monocytes (0.10 - 0.60 /CUMM) 0.6 0.5 Absolute Eosinophils (0.0 - 0.7 /CUMM) 0.5 0.6 Absolute Basophils (0.0 - 0.2 /CUMM) 0 0 07/29 0655 Chemistry Sodium (137 - 145 mmol/L) 137 Potassium (3.5 - 5.1 mmol/L) 5.1 Chloride (98 - 107 mmol/L) 98 Carbon Dioxide (22 - 30 mmol/L) 18 L Anion Gap (5 - 16) 20 H BUN (9 - 20 mg/dL) 79 H Creatinine (0.7 - 1.2 mg/dL) 8.7 *H Estimated GFR (>60 ml/min) 6 L BUN/Creatinine Ratio (7 - 25 %) 9.1 Hematology CBC w Diff NO MAN DIFF REQ WBC (4.8 - 10.8 /CUMM) 6.9 RBC (4.70 - 6.10 /CUMM) 3.38 L Hgb (14.0 - 18.0 G/DL) 10.4 L Hct (42 - 52 %) 31.0 L MCV (80.0 - 94.0 FL) 91.8 MCH (27.0 - 31.0 PG) 30.6 MCHC (33.0 - 37.0 G/DL) 33.4 RDW (11.5 - 14.5 %) 17.9 H Plt Count (130 - 400 /CUMM) 159 MPV (7.4 - 10.4 FL) 9.2 Gran % (42.2 - 75.2 %) 74.1 Lymphocytes % (20.5 - 51.1 %) 11.8 L Monocytes % (1.7 - 9.3 %) 8.4 Eosinophils % (0 - 5 %) 5.3 H Basophils % (0.0 - 2.0 %) 0.4 Absolute Granulocytes (1.4 - 6.5 /CUMM) 5.1 Absolute Lymphocytes (1.2 - 3.4 /CUMM) 0.8 L Absolute Monocytes (0.10 - 0.60 /CUMM) 0.6 Absolute Eosinophils (0.0 - 0.7 /CUMM) 0.4 Absolute Basophils (0.0 - 0.2 /CUMM) 0
--- NOTE | 2017-10-13 11:57 | PN- Infect Dx ---
Subjective Subjective: Decresed swelling and redness R LE. T max 99F. Feeling overall better. No diarrhea. Review of Systems Comments: 12 points reviewed as noted, otherwise negative. Objective Last 24 Hrs of Vital Signs/I&O Vital Signs Date Time Temp Pulse Resp B/P B/P Pulse O2 O2 Flow FiO2 Mean Ox Delivery Rate 10/13 0907 69 120/60 10/13 0906 69 120/60 10/13 0650 99.0 69 18 120/60 95 10/13 0105 69 97 10/13 0000 CPAP 10/12 2244 78 98 10/12 2213 98.1 70 18 134/76 95 10/12 1745 98.4 74 18 128/84 94 10/12 1422 97.6 68 145/74 Intake & Output 10/13 1600 10/13 0800 10/13 0000 Intake Total 300 120 Output Total Balance 300 120 Intake, Oral 300 120 Patient 494 lb Weight Physical Exam Other Physical Findings: He is awake and alert in no acute distress. He is afebrile. Skin warm and dry. 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 Neck is supple with no adenopathy. Lungs are clear. Heart irregular rhythm with no murmur. Abdomen is soft, nontender with positive bowel sounds. Back no CVA tenderness. Extremities chronic changes to the right lower extremity, with right leg edema, resolving erythema R LE, no tenderness; decreased pulses both feet; left upper extremity fistula with positive bruit and thrill, with no inflammation. Neuro is without focality. Results Last 24 Hours of Lab Results: Laboratory Tests 10/13 10/12 0600 1447 Chemistry Sodium (137 - 145 mmol/L) 136 L Potassium (3.5 - 5.1 mmol/L) 4.5 Chloride (98 - 107 mmol/L) 97 L Carbon Dioxide (22 - 30 mmol/L) 22 Anion Gap (5 - 16) 18 H BUN (9 - 20 mg/dL) 61 H Creatinine (0.7 - 1.2 mg/dL) 7.2 *H Estimated GFR (>60 ml/min) 8 L BUN/Creatinine Ratio (7 - 25 %) 8.5 Hematology CBC w Diff NO MAN DIFF REQ WBC (4.8 - 10.8 /CUMM) 4.9 RBC (4.70 - 6.10 /CUMM) 3.36 L Hgb (14.0 - 18.0 G/DL) 10.1 L Hct (42 - 52 %) 30.8 L MCV (80.0 - 94.0 FL) 91.8 MCH (27.0 - 31.0 PG) 30.0 MCHC (33.0 - 37.0 G/DL) 32.7 L RDW (11.5 - 14.5 %) 17.8 H Plt Count (130 - 400 /CUMM) 173 MPV (7.4 - 10.4 FL) 9.0 Gran % (42.2 - 75.2 %) 64.0 Lymphocytes % (20.5 - 51.1 %) 16.1 L Monocytes % (1.7 - 9.3 %) 10.0 H Eosinophils % (0 - 5 %) 9.0 H Basophils % (0.0 - 2.0 %) 0.9 Absolute Granulocytes (1.4 - 6.5 /CUMM) 3.1 Absolute Lymphocytes (1.2 - 3.4 /CUMM) 0.8 L Absolute Monocytes (0.10 - 0.60 /CUMM) 0.5 Absolute Eosinophils (0.0 - 0.7 /CUMM) 0.4 Absolute Basophils (0.0 - 0.2 /CUMM) 0 Serology Hep Bs Antibody (NONREACTIVE) NONREACTIVE 10/12 1328 Chemistry Sodium (137 - 145 mmol/L) 129 L Potassium (3.5 - 5.1 mmol/L) 5.6 H Chloride (98 - 107 mmol/L) 91 L Carbon Dioxide (22 - 30 mmol/L) 17 L Anion Gap (5 - 16) 21 H BUN (9 - 20 mg/dL) 107 *H Creatinine (0.7 - 1.2 mg/dL) 10.2 *H Estimated GFR (>60 ml/min) 5 L BUN/Creatinine Ratio (7 - 25 %) 10.5 Glucose (65 - 99 mg/dL) 318 H Calcium (8.4 - 10.2 mg/dL) 7.6 L Phosphorus (2.5 - 4.5 mg/dL) 8.6 H Hematology CBC w Diff NO MAN DIFF REQ WBC (4.8 - 10.8 /CUMM) 6.5 RBC (4.70 - 6.10 /CUMM) 3.50 L Hgb (14.0 - 18.0 G/DL) 10.6 L Hct (42 - 52 %) 31.9 L MCV (80.0 - 94.0 FL) 91.0 MCH (27.0 - 31.0 PG) 30.4 MCHC (33.0 - 37.0 G/DL) 33.4 RDW (11.5 - 14.5 %) 18.1 H Plt Count (130 - 400 /CUMM) 185 MPV (7.4 - 10.4 FL) 9.2 Gran % (42.2 - 75.2 %) 70.2 Lymphocytes % (20.5 - 51.1 %) 12.0 L Monocytes % (1.7 - 9.3 %) 8.9 Eosinophils % (0 - 5 %) 8.3 H Basophils % (0.0 - 2.0 %) 0.6 Absolute Granulocytes (1.4 - 6.5 /CUMM) 4.6 Absolute Lymphocytes (1.2 - 3.4 /CUMM) 0.8 L Absolute Monocytes (0.10 - 0.60 /CUMM) 0.6 Absolute Eosinophils (0.0 - 0.7 /CUMM) 0.5 Absolute Basophils (0.0 - 0.2 /CUMM) 0 Last 24 Hours of Gael Results: SPEC #: [id number] BINU: 10/12/17 STATUS: COLB RECD: - [facility] SOURCE: UPPER RESP ENTR: 10/12/[address]: Cheikh Burroughs MD SPDESC: REY Bautista MD,Beverly Chase MD, [facility] ORDERED: MRSA SCREEN COMMENT: HAS THE PATIENT BEEN ON ANTIBIOTICS IN THE PAST 72 HOURS? Y Procedure Result MRSA SCREEN PENDING RECEIPT Recent Imaging Studies: reviewed Assessment/Plan ID Impression: 62-year-old man with a history of diabetes, ESRD, on dialysis (Mondays, Wednesdays and Fridays) for the past 6 months via a left upper extremity fistula , status post a CABG 2 months prior to admission and chronic right lower extremity swelling admitted on October 09 after a syncopal episode following dialysis, found to be febrile and borderline hypotensive, with his exam notable for right lower extremity erythema and with a mild leukocytosis. Right lower extremity cellulitis, superimposed on chronic stasis dermatitis changes; clinically much improved on current empiric abx coverage for gram- positive organisms, namely beta-hemolytic strep and Staph aureus, with Cefazolin 1 gm daily (please on HD days give after HD). Suggestion: 1. Elevation of the right leg 2. Cont Cefazolin 1 g IV daily (schedule after HD on HD days); w/ plan to discharge soon w/ oral abx (Keflex 750 mg p.o. every 24 hours with dinner for 3 more days, in order to complete a 7 day course of treatment). 3. Call if fever.
[2017-10-13] MEDS ORDERED: LIPITOR20 M2 PO (13:17)
--- NOTE | 2017-10-13 15:14 | PN- Cardiology ---
Subjective Subjective: * No chest discomfort, shortness of breath, lightheadedness or palpitations. * Short runs of NSVT are noted on telemetry. * right LE cellulitis is mildly improved. Objective Vital Signs and I&Os Vital Signs Date Time Temp Pulse Resp B/P B/P Pulse O2 O2 Flow FiO2 Mean Ox Delivery Rate 10/13 0907 69 120/60 10/13 0906 69 120/60 10/13 0650 99.0 69 18 120/60 95 10/13 0105 69 97 10/13 0000 CPAP 10/12 2244 78 98 10/12 2213 98.1 70 18 134/76 95 10/12 1745 98.4 74 18 128/84 94 Intake & Output 10/13 1600 10/13 0800 10/13 0000 10/12 1600 10/12 0800 10/12 0000 Intake Total 300 120 400 440 400 Output Total Balance 300 120 400 440 400 Intake, Oral 300 120 400 440 400 Patient 494 lb 193 lb Weight Weight Bed scale Measurement Method Physical Exam: General: WD/WN male in NAD; alert and oriented x 3 HEENT: NC/AT, right eye reactive to light, left eye is blind Neck: no JVD, no carotid bruit Heart: RRR Lungs: clear bilaterally Abdomen: soft, NT, +ve bowel sounds Extremities: no edema on left, 2+ RLE edema Assessment/Plan Assessment/Plan * This patient had a syncopal episode after dialysis that was likely related to dehydration following dialysis. No prolonged ventricular dysrhythmias were noted upon interogation of his LINQ loop recorder. Since this patient has shorter and asymptomatic runs of NSVT we will begin Amiodarone 400mg BID and plan on an outpatient EP study. * Continue dialysis for fluid removal and management of his electrolytes. Continue telemetry? Yes
[2017-10-13] MEDS ORDERED: AMIODARONE HCL200 M1 PO (16:08)
--- NOTE | 2017-10-14 10:35 | Discharge Summary ---
Visit Information Visit Dates Admission Date: 10/09/17 Discharge Date: 10/13/17 Hospital Course Course Attending Physician: Lily MACKEY,Beverly Alston Primary Care Physician: Rena MACKEY,[place] Hospital Course: It is a 62-year-old male patient with a known case of obstructive sleep apnea, insulin-dependent diabetes mellitus, CKD on dialysis, renal transplant, CAD, atrial fibrillation, CHF, double cardiac bypass and GERD presented to ER with syncopal episode post dialysis. He was found to have lower extremity cellulitis on the right side, fever and was was suspected sepsis. Patient received 1 dose of vancomycin and ceftaz and admitted in telemetry. The patient was then afebrile and began to improve. The patient was thought to have syncopal episode due to dialysis related to dehydration. Since the patient had short asymptomatic runs of NSVT amiodarone 400 mg twice daily was started. Cellulitis was treated with cefazolin 1 g IV post dialysis. And then switched to Keflex 750 mg for 4 days per oral and discharged. Allergies: Coded Allergies: NO KNOWN ALLERGIES (01/28/15) Disposition Summary Disposition Principal Diagnosis: Right lower extremity cellulitis Syncope sec to dehydration Additional Diagnosis: Chronic renal failure Discharge Disposition: home or self care Discharge Instructions General Discharge Information Code Status: Full Code Patient's Diet: Renal dialysis diet Patient's Activity: As tolerated Follow-Up Instructions/Appts: As per [facility] Medications at Discharge Discharge Medications: Continue taking these medications: Insulin Lispro (Humalog) (Unknown Strength) VIAL Unknown Dose SC 3 TIMES DAILY BEFORE MEALS Comments: Last Taken: 10/13/17 Time: 12:50 PM NOVOLOG GIVEN SUBSTITUTE Metoprolol Tartrate (Lopressor) 100 MG TABLET 0.5 Tablet ORAL DAILY Comments: Last Taken: 10/13/17 Time: 9:00 AM Nitroglycerin (Minitran) 1 EACH PATCH.TD24 0.6 Milligram PATCH See Instructions Instructions: 12 HOURS ON, 12 HOURS OFF Comments: NOT GIVEN IN HOSPITAL Amlodipine Besylate (Amlodipine Besylate) 10 MG TABLET 1 Tablet ORAL DAILY Comments: Last Taken: 10/13/17 Time: 9:00 AM Aspirin (Ecotrin*) 81 MG TABLET.DR 1 Tablet ORAL DAILY Comments: Last Taken: 10/13/17 Time: 9:00 AM Insulin Glargine,Hum.rec.anlog (Lantus Solostar) 100 UNIT/ML (3 ML) INSULN.PEN 20 Units SC TWICE DAILY Comments: Last Taken: 10/13/17 Time: 8:30 AM LEVEMIR GIVEN SUBSTITUTE Cinacalcet HCl (Sensipar) 60 MG TABLET 1 Tablet ORAL DAILY Qty = 30 Comments: Last Taken: 10/13/17 Time: 9:00 AM Hydromorphone HCl (Hydromorphone HCl) 4 MG TABLET 1 Tablet ORAL THREE TIMES DAILY as needed for PAIN Qty = 90 Comments: NOT GIVEN IN HOSPITAL Furosemide (Lasix) 40 MG TABLET 120 Milligram ORAL SuTuThSa@0730,1630 Qty = 30 Instructions: . Comments: Last Taken: 10/13/17 Time: 8:30 AM Furosemide (Lasix) 40 MG TABLET 80 Milligram ORAL MoWeFr@0730,1630 Qty = 30 Instructions: . Comments: Last Taken: 10/13/17 Time: 6:00 PM Ibuprofen (Ibuprofen) 600 MG TABLET 1 Tablet ORAL THREE TIMES DAILY as needed for pain Qty = 20 Instructions: with food Comments: NOT GIVEN IN HOSPITAL Fish Oil/Borage/Flax/Om3,6,9#1 ([place] 3-6-9 1,200 MG Softgel) 1,200 MG CAPSULE 1 Capsule ORAL DAILY Comments: NOT GIVEN IN HOSPITAL Polyethylene Glycol 3350 (Miralax) 17 GRAM/DOSE POWDER 17 Gram ORAL DAILY Instructions: mix with water, juice, soda, coffee or tea Comments: NOT GIVEN IN HOSPITAL Sodium Bicarbonate (Sodium Bicarbonate) 650 MG TABLET 2 Tablet ORAL THREE TIMES DAILY Comments: Last Taken: 10/13/17 Time: 2:00 PM Atorvastatin Calcium (Lipitor) 80 MG TABLET 1 Tablet ORAL DAILY Comments: NOT GIVEN IN HOSPITAL Sevelamer Carbonate (Renvela) 800 MG TABLET 1 Tablet ORAL THREE TIMES DAILY Comments: Last Taken: 10/13/17 Time: 12:50 PM Start taking the following new medications: Cephalexin (Keflex) 750 MG CAPSULE 1 Capsule ORAL DAILY Qty = 5 No Refills Comments: NOT GIVEN IN HOSPITAL Amiodarone (Cordarone) 200 MG TAB 2 Tablet ORAL TWICE DAILY Qty = 60 No Refills Copies To: Raquel MACKEY,Gregory; Fabi MACKEY PHD,Alan Abad; Rena MACKEY,[facility]
== END 2017-10-13 16:54 | DRG 602 ==
LOC: ERH 16:26 → 1NO 20:34 → ERHI 20:34 → ENRESERV 22:27 → 1NO 23:07 → ENPENDDIS 10-13 10:44 → 1NO 10-13 15:00 → ENTRNSPT 10-13 16:35 → EDTRNSPT 10-13 16:47 → EDTRNSPTSTS 10-13 16:47 → CMPTRNSPT 10-13 16:53 → 1NO 10-13 16:54
PROVIDERS: Hospitalist; Internal Medicine; Physical Medicine & Rehabilitation Pain Medicine; Physician Assistant Medical; Student in an Organized Health Care Education/Training Program
DX: L03.115 Cellulitis of right lower limb (principal); N18.6 End stage renal disease; I13.2 Hypertensive heart and chronic kidney disease with heart failure and with stage 5 chronic kidney disease, or end stage renal disease; I50.32 Chronic diastolic (congestive) heart failure; Z94.0 Kidney transplant status; R55 Syncope and collapse; I48.0 Paroxysmal atrial fibrillation; G47.33 Obstructive sleep apnea (adult) (pediatric); Z99.2 Dependence on renal dialysis; I25.10 Atherosclerotic heart disease of native coronary artery without angina pectoris; Z95.1 Presence of aortocoronary bypass graft; I25.2 Old myocardial infarction; K21.9 Gastro-esophageal reflux disease without esophagitis; Z90.49 Acquired absence of other specified parts of digestive tract; H54.40 Blindness, one eye, unspecified eye; N25.0 Renal osteodystrophy; R16.1 Splenomegaly, not elsewhere classified; E86.0 Dehydration
CPT/HCPCS: 1NSP; 84133; 84300; 36592; 71045; 74176; 82436; 82570; 87040; 87070; 93005; 93010; 93306; 96374; J0690; J0713; J0885; J1644; J3370; J7040

== ENCOUNTER → 2017-11-05 | Day surgery (SDC) | payer OTHER, MEDICARE ==
[~2017-11-05] MED LIST changes: +KEFLEX750 M1 PO; +LIPITOR20 M2 PO; +LIPITOR80 M1 PO; +RENVELA800 M1 PO
--- NOTE | 2017-11-05 17:47 | Operative Report ---
Operative/Inv Procedure Report Surgery Date: 11/05/17 Name of Procedure: Left upper extremity fistula proximalization of arterial inflow Pre-Operative Diagnosis: Left arm steal Post-Operative Diagnosis: Same Estimated Blood Loss: less than 50ml Surgeon/Sort Operations Supervisor: Emiliano MACKEY, Siddharth Lawrence MD,Damon Anesthesia: local monitored anesthesi Operative/Procedure Note Note: The patient was brought to the operating room and placed on the operating table in the supine position and prepped and draped in the usual sterile fashion. Prior to the start of the procedure, a timeout was taken to confirm the patient and procedure. Additionally a preoperative dose of 2 g of Ancef was administered prior to incision. Simultaneous cutdowns were performed over the cephalic vein at the antecubital fossa and the axillary artery in the proximalmost arm. The axillary artery was somewhat small in size and inflamed. It was encircled proximally and distally. Surrounding nerves were identified and protected. A 6 mm ringed PTFE propatent graft was tunneled between the 2 incisions in the medial arm. The graft was irrigated with antibiotic irrigation. An end-to-side anastomosis was performed after 3000 units of heparin were administered. A 6-0 Prolene suture was used to simultaneously perform the anastomoses to the axillary artery and the cephalic vein fistula. Following completion of the anastomoses, the cephalic vein fistula was ligated close to the brachial artery. This created a functional axillary loop graft with inflow from the axillary artery down to the cephalic vein at the antecubital fossa and then up the arm in the venous outflow limb. Both incisions were irrigated with antibiotic irrigation. Some topical thrombin and Gelfoam and fibrillar were placed for hemostasis. Both wounds were closed in 2 layers of a running 3-0 Vicryl for the subcutaneous tissue, and skin lauren for the skin. Dressings were applied. There was a weakly palpable left radial pulse present and a thrill in the fistula. There were no specimens, I was present and scrubbed throughout the procedure. CC: Raquel MACKEY,Gregory
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
== END ==
LOC: STS 02:06
DX: T82.898A Other specified complication of vascular prosthetic devices, implants and grafts, initial encounter (principal); E11.22 Type 2 diabetes mellitus with diabetic chronic kidney disease; I13.11 Hypertensive heart and chronic kidney disease without heart failure, with stage 5 chronic kidney disease, or end stage renal disease; N18.6 End stage renal disease; Z99.2 Dependence on renal dialysis; Z94.0 Kidney transplant status; Z79.4 Long term (current) use of insulin; I48.91 Unspecified atrial fibrillation; I25.10 Atherosclerotic heart disease of native coronary artery without angina pectoris
CPT/HCPCS: 36415; J0131; J0690; J1644; J2001; J2250; J3490

== ENCOUNTER 2017-11-08 12:51 | Inpatient (IN) | payer OTHER, MEDICARE ==
[~2017-11-08] VITALS: Ht 170.2 cm; Wt 86.9 kg
[2017-11-08 13:24] LABS: ABSOLUTE BASOPHIL COUNT 0 /CUMM (0.0-0.2); ABSOLUTE EOSINOPHIL COUNT 0.6 /CUMM (0.0-0.7); ABSOLUTE GRANULOCYTE CT 4.4 /CUMM (1.4-6.5); ABSOLUTE LYMPH COUNT 0.9 /CUMM (1.2-3.4); ABSOLUTE MONOCYTE COUNT 0.6 /CUMM (0.10-0.60); BASOPHIL % 0.3 % (0.0-2.0); HEMATOCRIT 34.4 % (42-52); MEAN CORPUSCULAR HGB 29.5 PG (27.0-31.0); MEAN CORPUSCULAR HGB CONC 32.8 G/DL (33.0-37.0); MEAN CORPUSCULAR VOLUME 90.1 FL (80.0-94.0); MEAN PLATELET VOLUME 8.7 FL (7.4-10.4); PLATELET COUNT 165 /CUMM (130-400); RBC DISTRIBUTION WIDTH 17.6 % (11.5-14.5); RED BLOOD CELL CT 3.82 /CUMM (4.70-6.10); WHITE BLOOD CELL COUNT 6.6 /CUMM (4.8-10.8)
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
[2017-11-08 22:16] VITALS: BP 102/60
[2017-11-09 06:25] VITALS: BP 108/56
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
[2017-11-09 09:05] LABS: ABSOLUTE BASOPHIL COUNT 0.1 /CUMM (0.0-0.2); ABSOLUTE EOSINOPHIL COUNT 0.7 /CUMM (0.0-0.7); ABSOLUTE LYMPH COUNT 1.3 /CUMM (1.2-3.4); ABSOLUTE MONOCYTE COUNT 0.7 /CUMM (0.10-0.60); EOSINOPHIL % 12.2 % (0-5); GRANULOCYTE % 53.1 % (42.2-75.2); HEMATOCRIT 33.9 % (42-52); MEAN CORPUSCULAR HGB 29.5 PG (27.0-31.0); MEAN CORPUSCULAR HGB CONC 32.8 G/DL (33.0-37.0); MEAN CORPUSCULAR VOLUME 90.2 FL (80.0-94.0); MEAN PLATELET VOLUME 9.2 FL (7.4-10.4); PLATELET COUNT 162 /CUMM (130-400); RBC DISTRIBUTION WIDTH 16.8 % (11.5-14.5); RED BLOOD CELL CT 3.76 /CUMM (4.70-6.10); WHITE BLOOD CELL COUNT 5.7 /CUMM (4.8-10.8)
[2017-11-09 14:23] VITALS: BP 90/60
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
[2017-11-09 20:55] VITALS: BP 110/66
[2017-11-10 06:00] VITALS: BP 108/62
[2017-11-10 14:13] VITALS: BP 110/80
--- NOTE | 2017-11-10 14:52 | PN- Infect Dx ---
Subjective Subjective: Afebrile without complaints Objective Last 24 Hrs of Vital Signs/I&O Vital Signs Date Time Temp Pulse Resp B/P B/P Pulse O2 O2 Flow FiO2 Mean Ox Delivery Rate 11/10 1413 98.2 61 20 110/80 94 Room Air 11/10 0831 98/48 11/10 0830 98/48 11/10 0830 59 98/48 11/10 0600 98.0 59 20 108/62 95 CPAP 11/09 2054 98.3 64 20 110/66 93 11/10 2051 64 110/66 11/09 1600 Room Air Intake & Output 11/10 1600 11/10 0800 11/10 0000 Intake Total 400 100 300 Output Total Balance 400 100 300 Intake, Oral 400 100 300 Patient 192 lb Weight Weight Bed scale Measurement Method Physical Exam Other Physical Findings: He appears comfortable in no acute distress Extremities decreased edema of the left hand and forearm; mild erythema and edema of the left biceps/axillary area persists, though slightly decreased from yesterday, nontender to palpation; sutures in place with no drainage Results Last 24 Hours of Lab Results: No labs from today Last 24 Hours of Gael Results: Blood cultures x 2 November 08 negative Assessment/Plan ID Impression: Stable, with temperatures and white blood cell count remaining normal, off antibiotics, with a slight decrease in the left upper extremity inflammation compared to yesterday's exam, now 5 days status post left upper extremity fistula proximalization of arterial inflow. As previously noted, if he is felt to have a surgical site infection, would need to implicate involvement of the graft, which would likely require its removal; therefore, as he is stable, it is reasonable to follow him off antibiotics until or unless an infection can be proven. This has been discussed with Dr. Cummings, who concurs. Suggestion: 1. Continue elevation of the left upper extremity 2. Continue to follow off antibiotics
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
[2017-11-10 21:42] VITALS: BP 100/60
[2017-11-11 05:41] VITALS: BP 100/64
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
--- NOTE | 2017-11-11 08:18 | PN- Nephrology ---
Assessment/Plan Nephrology Assessment: Undergoing dialysis, 5 kg over dry weight. Suggestion: UF 4 liters today. Arm edema probably just from post surgical inflamation and higher flow through graft than with [place] AVF. Improving. Subjective Subjective: Patient feeling well, arm edema decreased. Objective Vital Signs and I&Os Vital Signs Date Time Temp Pulse Resp B/P B/P Pulse O2 O2 Flow FiO2 Mean Ox Delivery Rate 11/11 0541 98.4 62 20 100/64 96 Room Air 11/10 2225 87 91 11/10 2149 60 100/60 11/10 214 98.5 64 20 100/60 91 11/10 1413 98.2 61 20 110/80 94 Room Air 11/10 0831 98/48 11/10 0830 98/48 11/10 0830 59 Intake & Output 11/11 1600 11/11 0400 11/10 1600 11/10 0400 11/09 1600 11/09 0400 Intake Total 120 240 500 300 620 250 Output Total Balance 120 240 500 300 620 250 Intake, IV 20 250 Intake, Oral 120 240 500 300 600 0 Number 1 0 Bowel Movements Patient 192 lb 192 lb 188 lb 184 lb Weight Weight Bed scale Bed scale Reported by Patient Measurement Method Physical Exam: NAD VS as above Lungs: clear CV: no rub Abd: nontender Exts: less edema left arm, good bruit Neuro: A&O Current Medications: Current Medications Sig/Harjinder Start time Last Medication Dose Route Stop Time Status Admin Acetaminophen 650 MG Q6P PRN 11/08 2130 AC PO Amiodarone HCl 400 MG BID 11/09 899 AC 11/10 PO 2149 Amlodipine Besylate 10 MG DAILY 11/09 09 AC PO Aspirin Buffered 81 MG DAILY 11/09 09 AC 11/10 PO 0831 Atorvastatin Calcium 80 MG DAILY 11/09 09 AC 11/10 PO 0830 Cinacalcet 60 MG DAILY 11/09 09 AC 11/10 PO 0830 Epoetin Paolo 8,000 UNIT MoWeFr PRN 11/09 09 AC IV Furosemide 120 MG SuTuThSa@0730,1630 11/10 0730 AC 11/10 PO 1751 Furosemide 80 MG MoWeFr@0730,1630 11/09 0730 AC 11/09 PO 1702 Heparin Sodium 5,000 UNIT Q8 11/08 2200 AC 11/11 (Porcine) SC 0532 Hydromorphone HCl 1 MG Q6P PRN 11/08 2130 AC 11/10 IV 2100 Insulin Aspart 0 TIDAC/HS 11/11 0800 DC SC Insulin Aspart 0 TIDAC/HS 11/10 2200 AC 11/10 SC 2153 Insulin Aspart 0 .STK-MED ONE 11/10 2154 DC SC Insulin Aspart 0 TIDAC 11/09 0645 DC 11/10 SC 1751 Insulin Detemir 20 UNITS QAM 11/09 0900 AC 11/10 SC 0831 Insulin Detemir 15 UNITS QPM 11/08 2200 AC 11/10 SC 2100 Metoprolol Tartrate 50 MG DAILY 11/09 0900 AC 11/10 PO 0830 Patient Medication 1 ED ONE ONE 11/10 1900 DC Teaching ED 11/10 190 Sevelamer Carbonate 800 MG WM 11/09 08 AC 11/10 PO 1751 Sodium Bicarbonate 1,300 MG TID 11/09 09 AC 11/10 PO 2059 Trimethobenzamide HCl 200 MG 4 TIMES/DAY PRN 11/10 0945 11/10 IM 210 Results Pertinent Lab Results: Laboratory Tests 11/11 11/09 11/09 0617 0940 0619 Chemistry Sodium (137 - 145 mmol/L) Pending 136 L Potassium (3.5 - 5.1 mmol/L) Pending 4.6 Chloride (98 - 107 mmol/L) Pending 101 Carbon Dioxide (22 - 30 mmol/L) Pending 18 L Anion Gap (5 - 16) Pending 17 H BUN (9 - 20 mg/dL) Pending 89 H Creatinine (0.7 - 1.2 mg/dL) Pending 9.3 *H Estimated GFR (>60 ml/min) 6 L BUN/Creatinine Ratio (7 - 25 %) Pending 9.6 Calcium (8.4 - 10.2 mg/dL) 7.5 L Phosphorus (2.5 - 4.5 mg/dL) 9.0 H Magnesium (1.6 - 2.3 mg/dL) 2.5 H Albumin (3.5 - 5.0 g/dL) 3.3 L Hematology CBC w Diff NO MAN DIFF REQ WBC (4.8 - 10.8 /CUMM) 5.7 RBC (4.70 - 6.10 /CUMM) 3.76 L Hgb (14.0 - 18.0 G/DL) 11.1 L Hct (42 - 52 %) 33.9 L MCV (80.0 - 94.0 FL) 90.2 MCH (27.0 - 31.0 PG) 29.5 MCHC (33.0 - 37.0 G/DL) 32.8 L RDW (11.5 - 14.5 %) 16.8 H Plt Count (130 - 400 /CUMM) 162 MPV (7.4 - 10.4 FL) 9.2 Gran % (42.2 - 75.2 %) 53.1 Lymphocytes % (20.5 - 51.1 %) 22.2 Monocytes % (1.7 - 9.3 %) 11.5 H Eosinophils % (0 - 5 %) 12.2 H Basophils % (0.0 - 2.0 %) 1.0 Absolute Granulocytes (1.4 - 6.5 /CUMM) 3.0 Absolute Lymphocytes (1.2 - 3.4 /CUMM) 1.3 Absolute Monocytes (0.10 - 0.60 /CUMM) 0.7 H Absolute Eosinophils (0.0 - 0.7 /CUMM) 0.7 Absolute Basophils (0.0 - 0.2 /CUMM) 0.1 Serology Hep Bs Antibody (NONREACTIVE) REACTIVE 11/08 11/08 1812 1314 Chemistry Sodium (137 - 145 mmol/L) 137 Potassium (3.5 - 5.1 mmol/L) 4.8 Chloride (98 - 107 mmol/L) 101 Carbon Dioxide (22 - 30 mmol/L) 18 L Anion Gap (5 - 16) 18 H BUN (9 - 20 mg/dL) 83 H Creatinine (0.7 - 1.2 mg/dL) 8.2 *H Estimated GFR (>60 ml/min) 7 L BUN/Creatinine Ratio (7 - 25 %) 10.1 Glucose (65 - 99 mg/dL) 224 H Lactic Acid (0.7 - 2.1 mmol/L) 0.9 Calcium (8.4 - 10.2 mg/dL) 7.1 L Hematology CBC w Diff NO MAN DIFF REQ WBC (4.8 - 10.8 /CUMM) 6.6 RBC (4.70 - 6.10 /CUMM) 3.82 L Hgb (14.0 - 18.0 G/DL) 11.3 L Hct (42 - 52 %) 34.4 L MCV (80.0 - 94.0 FL) 90.1 MCH (27.0 - 31.0 PG) 29.5 MCHC (33.0 - 37.0 G/DL) 32.8 L RDW (11.5 - 14.5 %) 17.6 H Plt Count (130 - 400 /CUMM) 165 MPV (7.4 - 10.4 FL) 8.7 Gran % (42.2 - 75.2 %) 67.0 Lymphocytes % (20.5 - 51.1 %) 14.1 L Monocytes % (1.7 - 9.3 %) 9.6 H Eosinophils % (0 - 5 %) 9.0 H Basophils % (0.0 - 2.0 %) 0.3 Absolute Granulocytes (1.4 - 6.5 /CUMM) 4.4 Absolute Lymphocytes (1.2 - 3.4 /CUMM) 0.9 L Absolute Monocytes (0.10 - 0.60 /CUMM) 0.6 Absolute Eosinophils (0.0 - 0.7 /CUMM) 0.6 Absolute Basophils (0.0 - 0.2 /CUMM) 0
[2017-11-11 09:33] LABS: ABSOLUTE BASOPHIL COUNT 0 /CUMM (0.0-0.2); ABSOLUTE EOSINOPHIL COUNT 0.5 /CUMM (0.0-0.7); ABSOLUTE GRANULOCYTE CT 3.2 /CUMM (1.4-6.5); ABSOLUTE MONOCYTE COUNT 0.6 /CUMM (0.10-0.60); BASOPHIL % 0.8 % (0.0-2.0); EOSINOPHIL % 8.7 % (0-5); GRANULOCYTE % 61.1 % (42.2-75.2); HEMATOCRIT 33.3 % (42-52); MEAN CORPUSCULAR HGB 29.8 PG (27.0-31.0); MEAN CORPUSCULAR HGB CONC 33.4 G/DL (33.0-37.0); MEAN CORPUSCULAR VOLUME 89.3 FL (80.0-94.0); MEAN PLATELET VOLUME 9.1 FL (7.4-10.4); PLATELET COUNT 154 /CUMM (130-400); RBC DISTRIBUTION WIDTH 16.8 % (11.5-14.5); RED BLOOD CELL CT 3.72 /CUMM (4.70-6.10); WHITE BLOOD CELL COUNT 5.3 /CUMM (4.8-10.8)
--- NOTE | 2017-11-11 14:24 | PN- Infect Dx ---
Subjective Subjective: Afebrile without complaints Objective Last 24 Hrs of Vital Signs/I&O Vital Signs Date Time Temp Pulse Resp B/P B/P Pulse O2 O2 Flow FiO2 Mean Ox Delivery Rate 11/11 1312 72 106/60 11/11 1306 72 106/60 11/11 1304 72 106/60 11/11 0541 98.4 62 20 100/64 96 Room Air 11/10 2225 87 91 11/10 2149 60 100/60 11/10 2142 98.5 64 20 100/60 91 11/10 1413 98.2 61 20 110/80 94 Room Air Intake & Output 11/11 1600 11/11 0800 11/11 0000 Intake Total 120 240 Output Total Balance 120 240 Intake, Oral 120 240 Patient 192 lb Weight Weight Bed scale Measurement Method Physical Exam Other Physical Findings: He appears comfortable in no acute distress Extremities persistent edema and erythema over the biceps area of the left upper extremity, nontender to palpation; mild tenderness over the left antecubital area, with sutures in place, with mild erythema but no drainage; positive bruit and thrill of the left upper extremity fistula; slight decreased swelling of the left hand and forearm Results Last 24 Hours of Lab Results: Laboratory Tests 11/11 11/11 0800 0617 Chemistry Sodium (137 - 145 mmol/L) 136 L 135 L Potassium (3.5 - 5.1 mmol/L) 4.9 4.8 Chloride (98 - 107 mmol/L) 99 98 Carbon Dioxide (22 - 30 mmol/L) 22 23 Anion Gap (5 - 16) 15 15 BUN (9 - 20 mg/dL) 75 H 73 H Creatinine (0.7 - 1.2 mg/dL) 8.6 *H 8.5 *H Estimated GFR (>60 ml/min) 6 L 6 L BUN/Creatinine Ratio (7 - 25 %) 8.7 8.6 Calcium (8.4 - 10.2 mg/dL) 7.8 L Hematology CBC w Diff NO MAN DIFF REQ WBC (4.8 - 10.8 /CUMM) 5.3 RBC (4.70 - 6.10 /CUMM) 3.72 L Hgb (14.0 - 18.0 G/DL) 11.1 L Hct (42 - 52 %) 33.3 L MCV (80.0 - 94.0 FL) 89.3 MCH (27.0 - 31.0 PG) 29.8 MCHC (33.0 - 37.0 G/DL) 33.4 RDW (11.5 - 14.5 %) 16.8 H Plt Count (130 - 400 /CUMM) 154 MPV (7.4 - 10.4 FL) 9.1 Gran % (42.2 - 75.2 %) 61.1 Lymphocytes % (20.5 - 51.1 %) 18.5 L Monocytes % (1.7 - 9.3 %) 10.9 H Eosinophils % (0 - 5 %) 8.7 H Basophils % (0.0 - 2.0 %) 0.8 Absolute Granulocytes (1.4 - 6.5 /CUMM) 3.2 Absolute Lymphocytes (1.2 - 3.4 /CUMM) 1.0 L Absolute Monocytes (0.10 - 0.60 /CUMM) 0.6 Absolute Eosinophils (0.0 - 0.7 /CUMM) 0.5 Absolute Basophils (0.0 - 0.2 /CUMM) 0 Last 24 Hours of Gael Results: Blood cultures x 2 November 08 negative Assessment/Plan ID Impression: Stable, with temperatures and white blood cell count remaining normal, off antibiotics, with some decrease in the swelling of his left hand and forearm but with persistent inflammation near the axilla, in the biceps area, not significantly changed over the last 2 days. He is now 6 days status post left upper extremity fistula proximalization of arterial inflow. Have discussed with Dr. Lawrence, who does not feel that further imaging is indicated at this time. He agrees with following him off antibiotics and will follow him up as an outpatient. Suggestion: 1. Continue elevation of the left upper extremity 2. Continue to monitor off antibiotics Shasta Heart MD is covering until November 24
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
[2017-11-11 15:06] VITALS: BP 110/62
--- NOTE | 2017-11-11 16:28 | Patient Discharge Instructions ---
Discharge Instructions General Discharge Information You were seen/treated for: Swelling and Pain at site of your AV Fistula Special Instructions: Follow up with your pcp within 1 week of discharge Follow up with your vascular surgeon (Dr. Lawrence) for further evaluation and management of the fistula Continue to keep the arm raised if swelling continues Acute Coronary Syndrome Inclusion Criteria At DC or during hospital stay patient has or had the following: ACS DIAGNOSIS No Discharge Core Measures Meds if any: Prescribed or Continued at Discharge Meds if any: NOT Prescribed or Continued at Discharge Congestive Heart Failure Inclusion Criteria At DC or during hospital stay patient has or had the following: CHF DIAGNOSIS No Discharge Core Measures Meds if any: Prescribed or Continued at Discharge Meds if any: NOT Prescribed or Continued at Discharge Cerebrovascular accident Inclusion Criteria At DC or during hospital stay patient has or had the following: CVA/TIA Diagnosis No Discharge Core Measures Meds if any: Prescribed or Continued at Discharge Meds if any: NOT Prescribed or Continued at Discharge Venous thromboembolism Inclusion Criteria VTE Diagnosis No VTE Type NONE VTE Confirmed by (Test) NONE Discharge Core Measures - Per Current guidelines, there needs to be overlap - treatment for the first 5 days of Warfarin therapy. - If discharged on Warfarin prior to 5 days of - overlap therapy, the patient will need to be - assessed for post discharge needs including - *Post discharge parental anticoagulation - *Warfarin and/or parental anticoagulation education - *Follow up date to check INR post discharge At least 5 days overlap therapy as Inpatient No Meds if any: Prescribed or Continued at Discharge Note: Overlap Therapy is Warfarin and Anticoagulant Meds if any: NOT Prescribed or Continued at Discharge
[2017-11-11] MEDS ORDERED: TIGAN300 MG PO ×2 (16:33→16:42)
[2017-11-11] MEDS ORDERED: HYDROMORPHONE HC4 M1 PO (16:33)
== END 2017-11-11 18:00 | DRG 602 ==
LOC: ERH 12:51 → ERHI 19:49 → 2NA 19:49 → ENRESERV 20:38 → ENTRNSPT 21:29 → EDTRNSPT 21:32 → EDTRNSPTSTS 21:32 → 2NA 21:48 → CMPTRNSPT 22:02 → 2NA 11-09 11:48 → ENTRNSPT 11-11 17:42 → 2NA 11-11 18:00 → CMPTRNSPT 11-11 18:01
PROVIDERS: Hospitalist; Internal Medicine Nephrology; Physician Assistant Medical
PROC: 5A1D70Z Performance of Urinary Filtration, Intermittent, Less than 6 Hours Per Day (ICD-10-PCS; principal; 2017-11-11)
DX: L08.89 Other specified local infections of the skin and subcutaneous tissue (principal); N18.6 End stage renal disease; Z94.0 Kidney transplant status; I13.2 Hypertensive heart and chronic kidney disease with heart failure and with stage 5 chronic kidney disease, or end stage renal disease; I50.22 Chronic systolic (congestive) heart failure; T82.898A Other specified complication of vascular prosthetic devices, implants and grafts, initial encounter; I12.0 Hypertensive chronic kidney disease with stage 5 chronic kidney disease or end stage renal disease; E11.319 Type 2 diabetes mellitus with unspecified diabetic retinopathy without macular edema; E11.22 Type 2 diabetes mellitus with diabetic chronic kidney disease; G47.33 Obstructive sleep apnea (adult) (pediatric); J44.9 Chronic obstructive pulmonary disease, unspecified; Z99.81 Dependence on supplemental oxygen; S60.943A Unspecified superficial injury of left middle finger, initial encounter; R09.02 Hypoxemia; R00.0 Tachycardia, unspecified; M79.89 Other specified soft tissue disorders; I25.10 Atherosclerotic heart disease of native coronary artery without angina pectoris; Z95.1 Presence of aortocoronary bypass graft; Z99.2 Dependence on renal dialysis; K21.9 Gastro-esophageal reflux disease without esophagitis; Z90.49 Acquired absence of other specified parts of digestive tract; Z87.891 Personal history of nicotine dependence; Z79.4 Long term (current) use of insulin; H54.40 Blindness, one eye, unspecified eye
CPT/HCPCS: 2NASP; 36592; 82436; 87040; J0885; J1644; J1815; J3250; J3370